=== PATIENT | female | born 1990 | race Caucasian/White ===

== ENCOUNTER 2020-01-27 07:50 | Outpatient (REF) | payer OTHER, SELFPAY ==
[2020-01-27 11:07] LABS: MANUAL DIFF FLAG NO
[2020-01-27 11:16] LABS: Basophils Percent Auto 0.2 % (0-2); Eosinophils Absolute Auto 0.1 X10*3/uL (0.0-0.4); Eosinophils Percent Auto 1.8 % (0-4); Hematocrit 41.4 % (37-47); Hemoglobin 13.6 g/dl (12.0-16.0); Imm Gran Abs Auto 0.01 X10*3/uL (0.00-0.03); Imm Gran Pct Auto 0.2 % (0.0-0.4); Lymphocytes Absolute Auto 2.1 X10*3/uL (1.2-4.9); Lymphocytes Percent Auto 40.4 % (20-40); Mean Corpuscular HGB Conc 32.9 g/dl (31.0-35.0); Mean Corpuscular Hemoglobin 29.8 pg (27.0-33.0); Mean Corpuscular Volume 90.6 fL (80-98); Monocytes Absolute Auto 0.5 X10*3/uL (0.1-1.2); Monocytes Percent Auto 8.9 % (2-11); Neutrophils Absolute Auto 2.5 X10*3/uL (2.0-8.3); Neutrophils Percent Auto 48.5 % (45-73); Platelet Count 302 X10*3/uL (160-400); Red Blood Count 4.57 X10*6/uL (4.20-5.50); Red Cell Distribution Width 14.7 % (11.0-16.0); White Blood Count 5.1 X10*3/uL (4.8-10.8)
[2020-01-27 11:40] LABS: Estimated Average Glucose 111 mg/dL; Hemoglobin A1c % 5.5 %
[2020-01-27 11:58] LABS: Anion Gap 12 (12-20); Blood Urea Nitrogen 11 mg/dL (9-16); Calcium 8.6 mg/dL (8.4-10.2); Carbon Dioxide 25 mmol/L (22-29); Chloride 106 mmol/L (96-108); Cholesterol 201 mg/dL; Estimated Glomerular Filt Rate > 60; Glucose Fasting 87 mg/dL (60-99); HDL Cholesterol 50 mg/dL; LDL Cholesterol Calculated 133 mg/dl; Potassium 4.3 mmol/l (3.3-5.1); Sodium 139 mmol/L (135-145); Triglycerides 93 mg/dL
[2020-01-27 11:59] LABS: TSH reflex Free T4 0.56 mIU/mL (0.32-4.0)
[2020-01-27 12:03] LABS: Erythrocyte Sedimentation Rate 2 MM/HR (0-20)
[2020-01-27 12:04] LABS: Vitamin B12 331 pg/mL (200-900)
[2020-01-28 12:32] LABS: Anti DNA DS Antibody <1 IU/mL
[2020-01-28 14:01] LABS: CRP High Sensitivity 3.7 mg/L
[2020-02-01 14:42] LABS: Vitamin D 25-OH, D2 <4 ng/mL; Vitamin D 25-OH, D3 27 ng/mL; Vitamin D 25-OH, Total 27 ng/mL (30-100)
== END 2020-01-27 07:51 | disposition home or self-care (01) ==
LOC: HO.HMGCLDS 07:50
PROVIDERS: PCP Internal Medicine; Visit Provider Internal Medicine
DX: S46.811A Strain of other muscles, fascia and tendons at shoulder and upper arm level, right arm, initial encounter (principal); G47.9 Sleep disorder, unspecified; F33.2 Major depressive disorder, recurrent severe without psychotic features; F41.1 Generalized anxiety disorder
CPT/HCPCS: 36415; 80048; 80061; 82306; 82607; 83036; 84443; 85025; 85652; 86141; 86225

== ENCOUNTER → 2020-01-28 08:01 | Outpatient (BNVA) | payer OTHER, SELFPAY | PROVIDERS: Visit Provider Psychiatry & Neurology Neurology | DX: G47.33 Obstructive sleep apnea (adult) (pediatric) (principal); Z99.89 Dependence on other enabling machines and devices | CPT/HCPCS: 99214 ==

== ENCOUNTER → 2020-03-03 08:04 | Outpatient (BNVA) | payer OTHER, SELFPAY | PROVIDERS: Visit Provider Psychiatry & Neurology Neurology | DX: Z76.89 Persons encountering health services in other specified circumstances (principal) ==

== ENCOUNTER → 2020-04-28 08:24 | Outpatient (BNVA) | payer OTHER, SELFPAY | PROVIDERS: PCP Internal Medicine; Visit Provider Psychiatry & Neurology Neurology ==

== ENCOUNTER 2020-06-12 11:01 | Outpatient (REF) | payer OTHER, SELFPAY ==
[2020-06-12 11:53] LABS: MANUAL DIFF FLAG NO
[2020-06-12 11:59] LABS: Basophils Percent Auto 0.2 % (0-2); Eosinophils Absolute Auto 0.1 X10*3/uL (0.0-0.4); Eosinophils Percent Auto 1.1 % (0-4); Hematocrit 44.2 % (37-47); Hemoglobin 14.5 g/dl (12.0-16.0); Imm Gran Abs Auto 0.01 X10*3/uL (0.00-0.03); Imm Gran Pct Auto 0.2 % (0.0-0.4); Lymphocytes Absolute Auto 1.7 X10*3/uL (1.2-4.9); Lymphocytes Percent Auto 36.2 % (20-40); Mean Corpuscular HGB Conc 32.8 g/dl (31.0-35.0); Mean Corpuscular Hemoglobin 30.4 pg (27.0-33.0); Mean Corpuscular Volume 92.7 fL (80-98); Mean Platelet Volume 8.5 fL (9.4-12.3); Monocytes Absolute Auto 0.4 X10*3/uL (0.1-1.2); Monocytes Percent Auto 8.1 % (2-11); Neutrophils Absolute Auto 2.6 X10*3/uL (2.0-8.3); Neutrophils Percent Auto 54.2 % (45-73); Platelet Count 343 X10*3/uL (160-400); Red Blood Count 4.77 X10*6/uL (4.20-5.50); Red Cell Distribution Width 12.9 % (11.0-16.0); White Blood Count 4.7 X10*3/uL (4.8-10.8)
[2020-06-12 12:14] LABS: Alanine Aminotransferase 14 U/L (0-31); Albumin Level 4.6 g/dL (3.5-5.0); Alkaline Phosphatase 61 U/L (39-117); Anion Gap 13 (12-20); Aspartate Amino Transferase 15 U/L (5-31); Bilirubin Total 0.4 mg/dL (0.0-1.0); Blood Urea Nitrogen 14 mg/dL (9-16); C Reactive Protein 0.42 mg/dL (< or = 0.50); Calcium 9.3 mg/dL (8.4-10.2); Carbon Dioxide 27 mmol/L (22-29); Chloride 107 mmol/L (96-108); Estimated Glomerular Filt Rate > 60; Glucose Random 92 mg/dL (60-115); Potassium 4.6 mmol/L (3.3-5.1); Rheumatoid Factor < 15.0 IU/mL (<15.0); Sodium 142 mmol/L (135-145); Total Protein 7.5 g/dL (6.5-8.0)
[2020-06-12 12:34] LABS: Thyroid Stimulating Hormone 0.24 uIU/mL (0.32-4.0)
[2020-06-12 12:43] LABS: Erythrocyte Sedimentation Rate 5 MM/HR (0-20)
[2020-06-14 15:42] LABS: Anti Nuclear Antibody Screen NEGATIVE (NEGATIVE)
[2020-06-14 22:21] LABS: Cyclic Citrullinated Peptide <16 UNITS
[2020-06-16 06:17] LABS: Lyme Abs Screen <0.90 index
[2020-06-16 13:51] LABS: Antibody to SS-A Antigen <1.0 NEG AI (<1.0 NEG); Antibody to SS-B Antigen <1.0 NEG AI (<1.0 NEG)
[2020-06-17 13:22] LABS: Vitamin D 25-OH, D2 <4 ng/mL; Vitamin D 25-OH, D3 29 ng/mL; Vitamin D 25-OH, Total 29 ng/mL (30-100)
== END 2020-06-12 11:02 | disposition home or self-care (01) ==
LOC: HO.LAB 11:01
PROVIDERS: PCP Internal Medicine; Visit Provider Student in an Organized Health Care Education/Training Program
DX: M25.50 Pain in unspecified joint (principal); Z79.899 Other long term (current) drug therapy
CPT/HCPCS: 36415; 80053; 82306; 84443; 85025; 85652; 86038; 86039; 86140; 86200; 86235; 86431; 86618; 99202

== ENCOUNTER → 2020-06-16 08:24 | Outpatient (BNVA) | payer OTHER, SELFPAY | PROVIDERS: PCP Internal Medicine; Visit Provider Psychiatry & Neurology Neurology ==

== ENCOUNTER → 2020-07-02 12:33 | Outpatient (BNVA) | payer OTHER, SELFPAY | PROVIDERS: Visit Provider Student in an Organized Health Care Education/Training Program | DX: M25.50 Pain in unspecified joint (principal); M79.7 Fibromyalgia | CPT/HCPCS: 99212 ==

== ENCOUNTER 2020-07-03 09:20 | Outpatient (REF) | payer OTHER, SELFPAY ==
[2020-07-03 12:11] LABS: TSH reflex Free T4 0.29 uIU/mL (0.32-4.0)
[2020-07-03 13:28] LABS: Free T4 (Free Thyroxine) 0.92 ng/dL (0.71-1.85)
== END 2020-07-03 09:21 | disposition home or self-care (01) ==
LOC: HO.HMGCLDS 09:20
PROVIDERS: PCP Internal Medicine; Visit Provider Internal Medicine
DX: R79.89 Other specified abnormal findings of blood chemistry (principal)
CPT/HCPCS: 36415; 84439; 84443

== ENCOUNTER 2020-08-13 15:25 | Outpatient (REF) | payer OTHER, SELFPAY ==
--- NOTE | ~2020-08-13 | US_ITS ---
EXAMINATION: US THYROID CLINICAL INFORMATION: Unspecified abnormal findings of blood chemistry. COMPARISON: None TECHNIQUE: Linear transducer grayscale and color Doppler examination with attention to the region of the thyroid. FINDINGS: SIZE: Measurements of the thyroid lobes and nodules are given in sagittal, anteroposterior and transverse dimensions respectively. Right Thyroid Lobe: 6.1 x 1.8 x 1.7 cm, volume 9.8 mL. Parenchyma: The gland echotexture is homogeneous. Thyroid vascularity is normal. Left Thyroid Lobe: 5.9 x 1.3 x 1.8 cm, volume 7.2 mL. Parenchyma: The gland echotexture is homogeneous. Thyroid vascularity is normal. Isthmus: 0.4 cm in maximum AP dimension. Estimated total number of nodules greater than or equal to 1 cm: 0. Fagot Heater nodules are described as follows: 1. Location: Right inferior. Size: 0.6 5.2 x 0.5 cm, volume 0.06 mL. Nodule characteristics: Composition: Spongiform (0). Echogenicity: Anechoic (0). Shape: Not taller than wide (0). Margins: Smooth (0). Echogenic Foci: None (0). ACR TI-RADS total points: 0 ACR TI-RADS category: 1 2. Location: Right inferior. Size: 0.9 x 0.4 x 0.9 cm, volume 0.17 mL. Nodule characteristics: Composition: Spongiform (0). Echogenicity: Anechoic (0). Shape: Not taller than wide (0). Margins: Smooth (0). Echogenic Foci: None (0). ACR TI-RADS total points: 0 ACR TI-RADS category: 1 3. Location: Left inferior. Size: 0.8 x 0.4 x 0.7 cm, volume 0.12 mL. Nodule characteristics: Composition: Cystic(0). ACR TI-RADS total points: 0 ACR TI-RADS category: 1 NODES: No lymphadenopathy is seen in the tissue surrounding the thyroid gland. US/US thyroid IMPRESSION: Slightly enlarged right lobe. Small bilateral thyroid nodules. Based on ACR TI-RADS criteria, no ultrasound follow-up indicated. ACR TI-RADS RECOMMENDATION REFERENCE: Ultrasound-guided fine-needle aspiration, followup ultrasound, no further follow up. * TR1 (0 point) and TR 2 (2 points): No FNA or follow up * TR3 (3 points): FNA if more than or equal to 2.5 cm in maximum dimension, followup ultrasound in 1, 3 and 5 years if 1.5 to 2.4 cm in maximum dimension. * TR4 (4-6 points): FNA if more than or equal to 1.5 cm in maximum dimension, followup ultrasound in 1, 2, 3 and 5 years if 1 to 1.4 cm in maximum dimension. * TR5 (more than or equal to 7 points): FNA if more than or equal to 1 cm in maximum dimension, followup ultrasound every year for 5 years if 0.5 to 0.9 cm in maximum dimension. * TR3, TR4 or TR5 nodules that are below the size threshold for follow up receive no follow up.
== END 2020-08-13 15:26 | disposition home or self-care (01) ==
LOC: HO.HMGCX 15:25
PROVIDERS: Visit Provider Internal Medicine
DX: R94.6 Abnormal results of thyroid function studies (principal)
CPT/HCPCS: 76536

== ENCOUNTER → 2020-08-25 08:31 | Outpatient (BNVA) | payer OTHER, SELFPAY | PROVIDERS: PCP Internal Medicine; Visit Provider Psychiatry & Neurology Neurology | DX: G25.81 Restless legs syndrome (principal); G47.33 Obstructive sleep apnea (adult) (pediatric) | CPT/HCPCS: 99212 ==

== ENCOUNTER → 2020-09-15 09:50 | Outpatient (BNVA) | payer OTHER, SELFPAY | PROVIDERS: PCP Internal Medicine; Visit Provider Internal Medicine Endocrinology, Diabetes & Metabolism | DX: E66.9 Obesity, unspecified (principal); E04.2 Nontoxic multinodular goiter; L65.9 Nonscarring hair loss, unspecified; R79.89 Other specified abnormal findings of blood chemistry | CPT/HCPCS: 99202 ==

== ENCOUNTER 2020-09-17 08:21 | Outpatient (REF) | payer OTHER, SELFPAY ==
[2020-09-17 10:00] LABS: MANUAL DIFF FLAG NO
[2020-09-17 10:06] LABS: Basophils Percent Auto 0.2 % (0-2); Eosinophils Absolute Auto 0.1 X10*3/uL (0.0-0.4); Eosinophils Percent Auto 1.2 % (0-4); Hemoglobin 14.6 g/dl (12.0-16.0); Imm Gran Abs Auto 0.01 X10*3/uL (0.00-0.03); Imm Gran Pct Auto 0.2 % (0.0-0.4); Lymphocytes Absolute Auto 1.7 X10*3/uL (1.2-4.9); Mean Corpuscular HGB Conc 33.2 g/dl (31.0-35.0); Mean Corpuscular Hemoglobin 30.7 pg (27.0-33.0); Mean Corpuscular Volume 92.4 fL (80-98); Mean Platelet Volume 9.1 fL (9.4-12.3); Monocytes Absolute Auto 0.4 X10*3/uL (0.1-1.2); Monocytes Percent Auto 8.4 % (2-11); Neutrophils Absolute Auto 2.1 X10*3/uL (2.0-8.3); Platelet Count 298 X10*3/uL (160-400); Red Blood Count 4.76 X10*6/uL (4.20-5.50); Red Cell Distribution Width 13.2 % (11.0-16.0); White Blood Count 4.2 X10*3/uL (4.8-10.8)
[2020-09-17 10:29] LABS: Alanine Aminotransferase 17 U/L (0-31); Albumin Level 4.5 g/dL (3.5-5.0); Alkaline Phosphatase 64 U/L (39-117); Anion Gap 9 (12-20); Aspartate Amino Transferase 16 U/L (5-31); Bilirubin Total 0.5 mg/dL (0.0-1.0); Blood Urea Nitrogen 15 mg/dL (9-16); Carbon Dioxide 26 mmol/L (22-29); Chloride 109 mmol/L (96-108); Estimated Glomerular Filt Rate > 60; Glucose Fasting 88 mg/dL (60-99); Potassium 4.3 mmol/L (3.3-5.1); Sodium 140 mmol/L (135-145)
[2020-09-17 10:48] LABS: Free T4 (Free Thyroxine) 0.89 ng/dL (0.71-1.85); Thyroid Stimulating Hormone 0.28 uIU/mL (0.32-4.0)
[2020-09-18 18:44] LABS: DHEA Sulfate 50 mcg/dL (18-391); Sex Hormone Binding Globulin 28 nmol/L (17-124)
[2020-09-18 21:05] LABS: Lutenizing Hormone 2.1 mIU/mL; Triiodothyronine T3 Total 70 ng/dL (76-181)
[2020-09-18 22:18] LABS: Thyroglobulin Antibodies <1 IU/mL (< or = 1); Thyroid Peroxidase Antibodies <1 IU/mL (<9)
[2020-09-20 13:51] LABS: IGF-1 (Somatomedin C) 127 ng/mL (63-373); IGF-1 Z Score (Female) -0.5 SD (-2.0 - +2.0)
[2020-09-21 17:57] LABS: Testosterone, Free 2.3 pg/mL (0.1-6.4); Testosterone, Total 16 ng/dL (2-45)
[2020-09-21 19:12] LABS: Adrenocorticotropic Hormone 14 pg/mL (6-50)
[2020-09-22 09:17] LABS: Thyrotropin Receptor Antibody <1.00 IU/L (<=2.00)
[2020-09-23 15:12] LABS: Thyroid Stimulating Immunoglob <89 % baseline (<140)
[2020-09-23 21:16] LABS: Androstenedione 59 ng/dL
[2020-09-24 01:46] LABS: Estradiol Free 1.55 pg/mL; Estradiol, Ultrasensitive 69 pg/mL
[2020-09-26 23:01] LABS: 11-Deoxycortisol, LC/MS <20 ng/dL
== END 2020-09-17 08:22 | disposition home or self-care (01) ==
LOC: HO.LAB 08:21
PROVIDERS: PCP Internal Medicine; Visit Provider Internal Medicine Endocrinology, Diabetes & Metabolism
DX: E66.9 Obesity, unspecified (principal); R79.89 Other specified abnormal findings of blood chemistry
CPT/HCPCS: 36415; 80053; 82024; 82157; 82533; 82627; 82634; 82670; 82681; 83001; 83002; 83498; 83520; 84270; 84305; 84402; 84403; 84439; 84443; 84445; 84480; 85025; 86376; 86800

== ENCOUNTER 2020-10-13 08:07 | Outpatient (REF) | payer OTHER, SELFPAY ==
[2020-10-13 09:40] LABS: Free T4 (Free Thyroxine) 1.01 ng/dL (0.71-1.85); Thyroid Stimulating Hormone 0.43 uIU/mL (0.32-4.0)
[2020-10-14 23:06] LABS: Adrenocorticotropic Hormone 15 pg/mL (6-50)
[2020-10-15 01:33] LABS: Triiodothyronine T3 Total 90 ng/dL (76-181)
[2020-10-19 04:42] LABS: Thyroxine Binding Globulin 20.4 mcg/mL (13.5-30.9)
[2020-10-20 21:42] LABS: Dexamethasone <20 ng/dL
== END 2020-10-13 08:08 | disposition home or self-care (01) ==
LOC: HO.LAB 08:07
PROVIDERS: PCP Internal Medicine; Visit Provider Internal Medicine Endocrinology, Diabetes & Metabolism
DX: E04.2 Nontoxic multinodular goiter (principal); R79.89 Other specified abnormal findings of blood chemistry; E66.9 Obesity, unspecified; Z68.37 Body mass index [BMI] 37.0-37.9, adult; L65.9 Nonscarring hair loss, unspecified; Z71.3 Dietary counseling and surveillance
CPT/HCPCS: 36415; 80299; 82024; 82533; 84439; 84442; 84443; 84480; 99212

== ENCOUNTER 2020-10-18 23:00 | Outpatient (REF) | payer OTHER, SELFPAY ==
[2020-10-23 17:11] LABS: Saliva Cortisol 0.13 mcg/dL
== END 2020-10-18 23:01 | disposition home or self-care (01) ==
LOC: HO.LNP 23:00
PROVIDERS: Visit Provider Internal Medicine Endocrinology, Diabetes & Metabolism
DX: E66.9 Obesity, unspecified (principal); E04.2 Nontoxic multinodular goiter; R79.89 Other specified abnormal findings of blood chemistry
CPT/HCPCS: 82530

== ENCOUNTER 2020-10-19 07:28 | Outpatient (REF) | payer OTHER, SELFPAY ==
[2020-10-28 13:46] LABS: Dexamethasone 268 ng/dL
== END 2020-10-19 07:29 | disposition home or self-care (01) ==
LOC: HO.LAB 07:28
PROVIDERS: PCP Internal Medicine; Visit Provider Internal Medicine Endocrinology, Diabetes & Metabolism
DX: E66.9 Obesity, unspecified (principal)
CPT/HCPCS: 36415; 80299; 82533

== ENCOUNTER → 2020-12-16 10:22 | Outpatient (REF) | payer OTHER, SELFPAY ==
--- NOTE | ~2020-12-16 | NM_ITS ---
EXAMINATION: NM THYROID UPTAKE AND SCAN CLINICAL INFORMATION: Nontoxic multinodular goiter. Low TSH. COMPARISON: None TECHNIQUE: Following the oral administration of 293 microcuries of I-123 sodium iodide, thyroid uptake was performed and expressed as a percentage of the administrated dose. Gamma scintillation camera images of the thyroid in the anterior and right and left anterior oblique views were obtained using a pinhole collimator following the administration of 10 mCi Tc-99m pertechnetate. FINDINGS: The uptake is 9% at 4 hours and 21.4% at 24 hours. On thyroid scan, there are normal symmetrical thyroid lobes with no focal cold defect or focal increased activity. Incidental finding of mild increased activity inferior to left thyroid lobe. NM/NM thyroid w uptake IMPRESSION: Normal symmetrical thyroid lobes on thyroid scan. Normal 4-hour and 24-hour uptake.
== END ==
LOC: HO.NUCMED 10:22
PROVIDERS: PCP Internal Medicine; Visit Provider Internal Medicine Endocrinology, Diabetes & Metabolism
DX: E04.2 Nontoxic multinodular goiter (principal); R79.89 Other specified abnormal findings of blood chemistry
CPT/HCPCS: 78014; A9512; A9516

== ENCOUNTER 2020-12-17 12:40 | Emergency (ER) | payer OTHER, SELFPAY ==
--- NOTE | ~2020-12-17 | CT_ITS ---
EXAMINATION: CT HEAD WITHOUT CONTRAST CLINICAL INFORMATION: Syncope and headache. COMPARISON: None TECHNIQUE: Contiguous axial imaging was performed from the skull base to vertex without intravenous administration of contrast. This CT examination was performed using dose optimization techniques as appropriate, variously including the following: *Automated exposure control *Adjustment of mA and/or kV according to patient size (this includes techniques or standardized protocols for targeted exams where dose is matched to indication/reason for exam; i.e. extremities or head) *Use of iterative reconstruction technique DLP: 728 mGy-cm FINDINGS: There is no evidence of acute intracranial hemorrhage or territorial infarction. No abnormal mass effect or midline shift is seen. Seymour to white matter differentiation is well preserved. No extra-axial fluid collections are identified. The ventricles are normal in size. There is no abnormal attenuation within the brain parenchyma. The osseous structures and soft tissues are normal. The mastoid air cells and visualized portions of the paranasal sinuses are well aerated. CT/CT head/brain wo con IMPRESSION: No acute intracranial process seen.
[2020-12-17 12:42] VITALS: BP 119/92; PULSE 65; RESP 19; TEMP 36.1; O2SAT 99; BMI 35.9
--- NOTE | 2020-12-17 13:12 | ECG_ITS ---
Test Reason : SYNCOPE Blood Pressure : / mmHG Vent. Rate : 065 BPM Atrial Rate : 065 BPM P-R Int : 130 ms QRS Dur : 092 ms QT Int : 442 ms P-R-T Axes : 061 007 032 degrees QTc Int : 459 ms Normal sinus rhythm Normal ECG No previous ECGs available Referred By: Mat Rendon Electronically Signed By:NATO CUEVAS
[2020-12-17 13:22] LABS: MANUAL DIFF FLAG NO
[2020-12-17] MEDS: Metoclopramide HCl 10 MG/2 ML VIAL IVPUSH (13:23)
[2020-12-17] MEDS: diphenhydrAMINE HCL 50 MG/ML VIAL IVPUSH (13:23)
[2020-12-17] MEDS: dexAMETHasone sod phosphate 4 MG/ML VIAL 8 MG IVPUSH (13:23)
[2020-12-17] MEDS: Butalb/Acetamin/Caff 50/325/40 TABLET 2 TAB PO (13:24)
[2020-12-17] MEDS: Famotidine/PF 20 MG/2 ML VIAL IVPUSH (13:24)
[2020-12-17 13:30] LABS: Basophils Percent Auto 0.4 % (0-2); Eosinophils Absolute Auto 0.1 X10*3/uL (0.0-0.4); Eosinophils Percent Auto 1.5 % (0-4); Hematocrit 44.5 % (37-47); Hemoglobin 15.1 g/dl (12.0-16.0); Imm Gran Abs Auto 0.01 X10*3/uL (0.00-0.03); Imm Gran Pct Auto 0.1 % (0.0-0.4); Lymphocytes Absolute Auto 2.7 X10*3/uL (1.2-4.9); Lymphocytes Percent Auto 39.4 % (20-40); Mean Corpuscular HGB Conc 33.9 g/dl (31.0-35.0); Mean Corpuscular Hemoglobin 30.8 pg (27.0-33.0); Mean Corpuscular Volume 90.8 fL (80-98); Mean Platelet Volume 8.9 fL (9.4-12.3); Monocytes Absolute Auto 0.5 X10*3/uL (0.1-1.2); Monocytes Percent Auto 6.7 % (2-11); Neutrophils Absolute Auto 3.6 X10*3/uL (2.0-8.3); Neutrophils Percent Auto 51.9 % (45-73); Platelet Count 300 X10*3/uL (160-400); Red Cell Distribution Width 12.6 % (11.0-16.0); White Blood Count 6.9 X10*3/uL (4.8-10.8)
[2020-12-17 13:47] LABS: Alanine Aminotransferase 17 U/L (0-31); Albumin Level 4.6 g/dL (3.5-5.0); Alkaline Phosphatase 62 U/L (39-117); Anion Gap 12 (12-20); Aspartate Amino Transferase 16 U/L (5-31); Bilirubin Direct 0.2 mg/dL (0.0-0.5); Bilirubin Total 0.7 mg/dL (0.0-1.0); Blood Urea Nitrogen 11 mg/dL (9-16); Calcium 9.3 mg/dL (8.4-10.2); Carbon Dioxide 24 mmol/L (22-29); Chloride 108 mmol/L (96-108); Creatinine Clr Calc Pharmacy 154.3; Estimated Glomerular Filt Rate > 60; Glucose Random 96 mg/dL (60-115); Potassium 3.9 mmol/L (3.3-5.1); Sodium 140 mmol/L (135-145); Total Protein 7.2 g/dL (6.5-8.0)
[2020-12-17 13:53] LABS: HCG Quantitative < 2 mIU/mL; Troponin-I High Sensitivity < 3.5 ng/L (<3.5-17.0)
--- NOTE | 2020-12-17 13:59 | ED_ITS ---
HPI - General Adult General Chief complaint: General Medical Stated complaint: near syncope Time Seen by Provider: 12/17/20 13:12 Source: patient Mode of arrival: ambulatory Limitations: no limitations History of Present Illness HPI narrative: Patient presents to the ED multiple complaints. Patient after receiving Iodine for nuclear test of thryoid today she fell dizzy/nauseous and almost passed out. Patient states since having nuclear med imaging she has been nauseous and having headache with photophobia. Patient states history of migraine feels like she have another migraines exacerbation due to the medic ations. Patient denies rash, itchy sensation shortness of breath or sensation of throat closing. Mother states father had similar presentation to iodine last last year while receiving a CT scan had to be given Benadryl and other meds. Related Data Home Medications Medication Instructions Recorded Confirmed bupropion HCl 300 mg 24 hr tablet, 300 mg PO DAILY 01/24/20 10/13/20 extended release epinephrine 0.3 mg/0.3 mL 1 IM 01/24/20 10/13/20 injection, auto-injector pregabalin 150 mg capsule 150 mg PO BID 08/25/20 10/13/20 sertraline 100 mg tablet 100 mg PO tab 09/15/20 10/13/20 tizanidine 2 mg tablet 4 mg PO Q12H 09/15/20 10/13/20 buspirone 5 mg tablet 5 mg PO BID 10/13/20 10/13/20 Previous Rx's Medication Instructions Recorded multivitamin 1 tab PO DAILY 30 Days #30 tab 02/19/20 cholecalciferol (vitamin D3) 25 25 mcg PO DAILY 90 Days #90 cap 08/05/20 mcg (1,000 unit) capsule dexamethasone 1 mg tablet 1 mg PO ONCE 1 Days #1 tab 10/13/20 cimuaejgan-owgdivminlzvt-jyfwstea 1 cap PO Q6H PRN #20 cap 12/17/20 50 mg-300 mg-40 mg capsule (Fioricet) naproxen 500 mg tablet 500 mg PO BID PRN #20 tab 12/17/20 Allergies Allergy/AdvReac Type Severity Reaction Status Date / Time shell fish Allergy Unknown anaphylaxis Verified 08/05/20 15:43 Apples Allergy Unknown anaphylaxis Uncoded 08/05/20 15:43 Review of Systems Review of Systems: Yes all other systems are reviewed and are negative Constitutional: Constitutional: Reports as per HPI, Reports no additional constitutional complaints and Reports headache(s) Eyes: Eyes: Reports as per HPI and Reports no additional eye complaints ENT: Reports system reviewed and no additional complaints, except as documented, Reports as per HPI and Reports headache(s) Cardiovascular: Cardiovascular: Reports as per HPI and Reports no additional cardiovascular complaints Respiratory: Respiratory: Reports as per HPI and Reports no additional respiratory complaints Gastrointestinal: Gastrointestinal: Reports as per HPI, Reports no additional gastrointestinal complaints, Reports nausea and Reports vomiting Genitourinary: Genitourinary: Reports no additional female genitourinary complaints and Reports as per HPI Musculoskeletal: Musculoskeletal: Reports no additional musculoskeletal complaints and Reports as per HPI Neurologic: Reports system reviewed and no additional complaints, except as documented, Reports as per HPI and Reports headache(s) Psychiatric: Psychiatric: Reports no additional psychiatric complaints and Reports as per HPI Endocrine: Endocrine: Reports no additional endocrine complaints and Reports as per HPI PMFSH Past Medical History Medical History (Updated 12/17/20 @ 15:42 by BRI Call) Anxiety, generalized Arthrosis Depression, major, severe recurrence Difficulty sleeping Elevated C-reactive protein (CRP) Fibromyalgia Hair loss Multinodular goiter Obesity (BMI 30-39.9) Obstructive sleep apnea on CPAP Shellfish allergy Strain of right trapezius muscle Vitamin D deficiency Surgical History History of bariatric surgery Family History Family History Father Bipolar disorder Hypercholesterolemia HTN (hypertension) Depression Obesity Mother HTN (hypertension) Social History Social History (Updated 09/15/20 @ 10:05 by PAT Garcia) Alcohol intake: unknown Patient Tobacco Use Status: Never used Tobacco Advance Directives: No Physical Exam Vital Signs: Vital Signs: Last Vital Signs Temp 97 F 12/17/20 12:42 Pulse 72 12/17/20 14:46 Resp 16 12/17/20 14:46 BP 137/85 12/17/20 14:46 Pulse Ox 100 12/17/20 14:46 Body Mass Index 35.9 Const: General: cooperative, healthy appearing, comfortable, no acute distress and well developed Orientation/consciousness: patient oriented x3 HENMT: Head: Yes normal to inspection, Yes No palpable skull fracture present, Yes normocephalic and Yes atraumatic Eyes: Other: photophobia General: appearance normal, both eyes and all related structures Neck: Neck: Yes normal visual inspection, Yes full ROM, Yes no lymphadenopathy, Yes no meningeal signs, Yes trachea midline, Yes supple and No tender Chest: Chest palpation & inspection: normal inspection of the chest and normal palpation of entire chest wall Resp: Effort & Inspection: normal respiratory effort and able to speak in complete sentences Auscultation: clear to auscultation bilaterally Cardio: Jugular venous distension: no JVD Heart sounds: S1 normal heart sound present and S2 normal heart sound present GI: Inspection: Yes normal to inspection and No abdominal wall ecchymosis Palpation (GI): Soft to palpation, not firm, nontender, no guarding and not rigid : General: No CVA tenderness and Yes no CVA tenderness Back/Spine/Pelvis: Back: no CVA tenderness, No CVA tenderness and No back tenderness Skin: General skin exam: no rashes or lesions noted and elasticity normal Neuro: Other: Negative facial droop. Negative slurred speech. Kgxydq-va-tkhe rapid hand movement intact. All extremities equal strength 5+. Negative pronator drift. General: patient oriented x3, gait normal, no meningeal signs and CN's II-XI intact bilaterally Cranial nerves: Yes CN's II-XII intact bilaterally Extrem: General: Yes normal to inspection and Yes full ROM Psych: Appearance: grossly normal, well kempt and not disheveled Course Course Course Narrative: Negative for any neuro deficits. Migraine exacerbation) adverse effect from iodine medication for imaging procedure. Treat as migraine exacerbation and adverse medication although there is no shortness of breath or itchiness. Will order Benadryl, Decadron, Pepcid, Reglan, Fioricet and fluids. With EKG troponin head CT. Oral exam normal Reevaluation(s) Reevaluation #1: Patient now looks better and no longer have photophobia, n ausea, and headache resolved after receiving meds. Head CT scan pending. Patient like to be discharged. EKG negative STEMI Time: 14:46 Reevaluation #2: Patient does not want to to wait for head CT scan results were preferred to be called with results. Patient agreeable to sign out against medical advice known risk of in Case head CT shows any life-threatening etiology and she cannot be found. Time: 15:36 Reevaluation #3: Patient was called and informed she had normal head CT scan. Patient informed show follow-up the PCP Time: 16:47 Medical Decision Making MDM Narrative Medical decision making narrative: Migraine exacerbation. Adverse Lab Data Result diagrams: 12/17/20 13:17 12/17/20 13:17 Labs: Lab Results 12/17/20 12/17/20 12/17/20 Range/Units 13:17 13:17 13:17 WBC 6.9 (4.8-10.8) X10*3/uL RBC 4.90 (4.20-5.50) X10*6/uL Hgb 15.1 (12.0-16.0) g/dl Hct 44.5 (37-47) % MCV 90.8 (80-98) fL MCH 30.8 (27.0-33.0) pg MCHC 33.9 (31.0-35.0) g/dl RDW 12.6 (11.0-16.0) % Plt Count 300 (160-400) X10*3/uL MPV 8.9 L (9.4-12.3) fL Immature Gran % (Auto) 0.1 (0.0-0.4) % Neut % (Auto) 51.9 (45-73) % Lymph % (Auto) 39.4 (20-40) % Jefferson % (Auto) 6.7 (2-11) % Eos % (Auto) 1.5 (0-4) % Baso % (Auto) 0.4 (0-2) % Lymph # (Auto) 2.7 (1.2-4.9) X10*3/uL Jefferson # (Auto) 0.5 (0.1-1.2) X10*3/uL Eos # (Auto) 0.1 (0.0-0.4) X10*3/uL Baso # (Auto) 0.0 (0.0-0.2) X10*3/uL Abs Immat Gran (auto) 0.01 (0.00-0.03) X10*3/uL Absolute Neuts (auto) 3.6 (2.0-8.3) X10*3/uL Absolute Nucleated RBC 0.000 (0.0-0.012) X10*3/uL Nucleated RBC % (auto) 0.0 (0.0-0.2) /100WBC PT (9.9-13.0) SEC INR (0.9-1.1) APTT (24.1-38.0) SEC Sodium 140 (135-145) mmol/L Potassium 3.9 (3.3-5.1) mmol/L Chloride 108 (96-108) mmol/L Carbon Dioxide 24 (22-29) mmol/L Anion Gap 12 (12-20) BUN 11 (9-16) mg/dL Creatinine 0.82 (0.5-1.4) mg/dL Estim Creat Clear Calc 154.3 Estimated GFR > 60 Random Glucose 96 (60-115) mg/dL Calcium 9.3 (8.4-10.2) mg/dL Total Bilirubin 0.7 (0.0-1.0) mg/dL Direct Bilirubin 0.2 (0.0-0.5) mg/dL AST 16 (5-31) U/L ALT 17 (0-31) U/L Alkaline Phosphatase 62 (39-117) U/L Troponin I High Sens < 3.5 (<3.5-17.0) ng/L Total Protein 7.2 (6.5-8.0) g/dL Albumin 4.6 (3.5-5.0) g/dL Beta HCG, Quant mIU/mL 12/17/20 12/17/20 Range/Units 13:17 14:43 WBC (4.8-10.8) X10*3/uL RBC (4.20-5.50) X10*6/uL Hgb (12.0-16.0) g/dl Hct (37-47) % MCV (80-98) fL MCH (27.0-33.0) pg MCHC (31.0-35.0) g/dl RDW (11.0-16.0) % Plt Count (160-400) X10*3/uL MPV (9.4-12.3) fL Immature Gran % (Auto) (0.0-0.4) % Neut % (Auto) (45-73) % Lymph % (Auto) (20-40) % Jefferson % (Auto) (2-11) % Eos % (Auto) (0-4) % Baso % (Auto) (0-2) % Lymph # (Auto) (1.2-4.9) X10*3/uL Jefferson # (Auto) (0.1-1.2) X10*3/uL Eos # (Auto) (0.0-0.4) X10*3/uL Baso # (Auto) (0.0-0.2) X10*3/uL Abs Immat Gran (auto) (0.00-0.03) X10*3/uL Absolute Neuts (auto) (2.0-8.3) X10*3/uL Absolute Nucleated RBC (0.0-0.012) X10*3/uL Nucleated RBC % (auto) (0.0-0.2) /100WBC PT 12.3 (9.9-13.0) SEC INR 1.1 (0.9-1.1) APTT 32.4 (24.1-38.0) SEC Sodium (135-145) mmol/L Potassium (3.3-5.1) mmol/L Chloride (96-108) mmol/L Carbon Dioxide (22-29) mmol/L Anion Gap (12-20) BUN (9-16) mg/dL Creatinine (0.5-1.4) mg/dL Estim Creat Clear Calc Estimated GFR Random Glucose (60-115) mg/dL Calcium (8.4-10.2) mg/dL Total Bilirubin (0.0-1.0) mg/dL Direct Bilirubin (0.0-0.5) mg/dL AST (5-31) U/L ALT (0-31) U/L Alkaline Phosphatase (39-117) U/L Troponin I High Sens (<3.5-17.0) ng/L Total Protein (6.5-8.0) g/dL Albumin (3.5-5.0) g/dL Beta HCG, Quant < 2 mIU/mL ECG Data Interpretation: Normal sinus rhythm. Normal EKG. Ventricular rate 65. Pr interval 130. QTC 459. Negative STEMI Discharge Plan Discharge Clinical Impression: Migraine, Adverse reaction to drug Patient Disposition: Left Against Medical Advice Instructions: Migraine Headache (ED), Adverse Drug Reaction (ED) Additional Instructions: Return to ED immediately for worsening headache, swelling of lips, shortness of breath, fever, chills, neck stiffness, slurred speech, facial droop, swelling of tongue, rash, or any other concerning symptoms. Please follow up with PCP Prescriptions: New naproxen 500 mg tablet 500 mg PO BID PRN (Reason: pain) Qty: 20 RF: 0 obwblactoy-ebxrdjejgmgmx-bciw [Fioricet] 50-300-40 mg capsule 1 cap PO Q6H PRN (Reason: pain) Qty: 20 RF: 0 No Action multivitamin Tablet 1 tab PO DAILY 30 Days Qty: 30 RF: 2 bupropion HCl 300 mg tablet extended release 24 hr 300 mg PO DAILY RF: 0 epinephrine 0.3 mg/0.3 mL auto-injector 1 IM RF: 0 sertraline 100 mg tablet 100 mg PO RF: 0 cholecalciferol (vitamin D3) 25 mcg (1,000 unit) capsule 25 mcg PO DAILY 90 Days Qty: 90 RF: 0 pregabalin 150 mg capsule 150 mg PO BID RF: 0 tizanidine 2 mg tablet 4 mg PO Q12H RF: 0 buspirone 5 mg tablet 5 mg PO BID RF: 0 dexamethasone 1 mg tablet 1 mg PO ONCE 1 Days Qty: 1 RF: 0 Stand Alone Forms: Against Medical Advice, Work/School Release Interventions: ED Discharge Assessment Last Done: 12/17/20 15:58 Discharge Date/Time: 12/17/20 15:59 Print Language: Sammarinese
[2020-12-17 14:46] VITALS: BP 137/85; PULSE 72; RESP 16; O2SAT 100
--- NOTE | 2020-12-17 14:51 | PC.NURSE ---
Pt is now sitting up and states is feeling better. Pt no longer has complaints of a headache or nausea and is requesting discharge. Pt still needs a head CT.
[2020-12-17 14:55] LABS: INTERNATIONAL NORM RATIO 1.1 (0.9-1.1); Prothrombin Time 12.3 SEC (9.9-13.0)
[2020-12-17 14:58] LABS: Partial Thromboplastin Time 32.4 SEC (24.1-38.0)
== END 2020-12-17 15:59 | disposition left against medical advice (07) ==
PROVIDERS: Physician Assistant; Emergency Provider Emergency Medicine; PCP Internal Medicine
DX: G43.909 Migraine, unspecified, not intractable, without status migrainosus (principal); R42 Dizziness and giddiness; Z79.899 Other long term (current) drug therapy
CPT/HCPCS: 36415; 70450; 80053; 82248; 84484; 84702; 85025; 85610; 85730; 93005; 96374; 96375; 99284; 99285; J1100; J1200; J2765

== ENCOUNTER → 2020-12-30 12:17 | Outpatient (BNVA) | payer OTHER, SELFPAY | PROVIDERS: PCP Internal Medicine; Visit Provider Internal Medicine ==

== ENCOUNTER 2020-12-31 07:29 | Outpatient (REF) | payer OTHER, SELFPAY ==
[2020-12-31 09:08] LABS: Glucose Fasting 98 mg/dL (60-99)
[2020-12-31 09:13] LABS: Free T4 (Free Thyroxine) 1.16 ng/dL (0.71-1.85); Thyroid Stimulating Hormone 0.72 uIU/mL (0.32-4.0); Vitamin D 25-OH Total 26.4 ng/mL (>30)
[2020-12-31 10:01] LABS: Glucose 1 Hour 76 mg/dL
[2020-12-31 10:46] LABS: Glucose 2 Hour 72 mg/dL
[2021-01-02 05:11] LABS: DHEA Sulfate 68 mcg/dL (18-391)
[2021-01-02 21:02] LABS: Prolactin 18.4 ng/mL; Triiodothyronine T3 Total 119 ng/dL (76-181)
[2021-01-05 21:36] LABS: Testosterone, Total 18 ng/dL (2-45)
[2021-01-07 18:56] LABS: Cortisol, Free 0.49 mcg/dL
== END 2020-12-31 07:30 | disposition home or self-care (01) ==
LOC: HO.LAB 07:29
PROVIDERS: PCP Internal Medicine; Visit Provider Internal Medicine
DX: E28.2 Polycystic ovarian syndrome (principal); E05.90 Thyrotoxicosis, unspecified without thyrotoxic crisis or storm; E04.2 Nontoxic multinodular goiter; E55.9 Vitamin D deficiency, unspecified
CPT/HCPCS: 36415; 82306; 82530; 82627; 84146; 84402; 84403; 84439; 84443; 84480

== ENCOUNTER → 2021-04-26 10:19 | Outpatient (BNVA) | payer OTHER, SELFPAY | PROVIDERS: PCP Internal Medicine; Visit Provider Internal Medicine ==

== ENCOUNTER 2021-05-05 11:13 | Outpatient (REF) | payer OTHER, SELFPAY ==
[2021-05-05 12:32] LABS: Free T4 (Free Thyroxine) 1.05 ng/dL (0.71-1.85); Thyroid Stimulating Hormone 0.24 uIU/mL (0.32-4.0)
[2021-05-07 00:42] LABS: Triiodothyronine T3 Total 103 ng/dL (76-181)
== END 2021-05-05 11:14 | disposition home or self-care (01) ==
LOC: HO.LAB 11:13
PROVIDERS: PCP Internal Medicine; Visit Provider Internal Medicine
DX: E05.90 Thyrotoxicosis, unspecified without thyrotoxic crisis or storm (principal); E04.2 Nontoxic multinodular goiter
CPT/HCPCS: 36415; 84439; 84443; 84480

== ENCOUNTER 2021-05-06 11:42 | Outpatient (REF) | payer OTHER, SELFPAY ==
[2021-05-06 13:23] LABS: Free T4 (Free Thyroxine) 1.03 ng/dL (0.71-1.85); TSH reflex Free T4 0.26 uIU/mL (0.32-4.0); Thyroid Stimulating Hormone 0.27 uIU/mL (0.32-4.0)
[2021-05-07 05:01] LABS: Triiodothyronine T3 Total 88 ng/dL (76-181)
[2021-05-07 09:01] LABS: Thyroglobulin Antibodies <1 IU/mL (< or = 1); Thyroid Peroxidase Antibodies 1 IU/mL (<9)
[2021-05-10 20:41] LABS: Thyrotropin Receptor Antibody <1.00 IU/L (<=2.00)
[2021-05-12 15:42] LABS: Thyroid Stimulating Immunoglob <89 % baseline (<140)
== END 2021-05-06 11:43 | disposition home or self-care (01) ==
LOC: HO.LAB 11:42
PROVIDERS: Internal Medicine; PCP Internal Medicine; Visit Provider Internal Medicine
DX: E05.90 Thyrotoxicosis, unspecified without thyrotoxic crisis or storm (principal); E04.2 Nontoxic multinodular goiter; R79.89 Other specified abnormal findings of blood chemistry
CPT/HCPCS: 36415; 83520; 84439; 84443; 84445; 84480; 86376; 86800

== ENCOUNTER 2021-05-07 11:05 | Outpatient (REF) | payer OTHER, SELFPAY ==
[2021-05-07 14:03] LABS: Cholesterol 195 mg/dL; HDL Cholesterol 50 mg/dL; LDL Cholesterol Calculated 131 mg/dl; Triglycerides 72 mg/dL
== END 2021-05-07 11:06 | disposition home or self-care (01) ==
LOC: HO.HMGCLDS 11:05
PROVIDERS: PCP Internal Medicine; Visit Provider Internal Medicine
DX: E66.09 Other obesity due to excess calories (principal)
CPT/HCPCS: 36415; 80061

== ENCOUNTER 2021-06-07 13:24 | Outpatient (REF) | payer OTHER, SELFPAY ==
[2021-06-07 15:26] LABS: Free T4 (Free Thyroxine) 1.11 ng/dL (0.71-1.85); Thyroid Stimulating Hormone 0.53 uIU/mL (0.32-4.0)
[2021-06-08 17:56] LABS: Triiodothyronine T3 Total 109 ng/dL (76-181)
== END 2021-06-07 13:25 | disposition home or self-care (01) ==
LOC: HO.LAB 13:24
PROVIDERS: PCP Internal Medicine; Visit Provider Internal Medicine
DX: E04.2 Nontoxic multinodular goiter (principal); E05.90 Thyrotoxicosis, unspecified without thyrotoxic crisis or storm; E21.3 Hyperparathyroidism, unspecified; E28.2 Polycystic ovarian syndrome; G47.33 Obstructive sleep apnea (adult) (pediatric); E55.9 Vitamin D deficiency, unspecified; Z79.899 Other long term (current) drug therapy
CPT/HCPCS: 36415; 84439; 84443; 84480; 99212

== ENCOUNTER 2021-06-07 23:00 | Outpatient (REF) | payer OTHER, SELFPAY ==
[2021-06-12 19:41] LABS: Saliva Cortisol 0.03 mcg/dL
== END 2021-06-07 23:01 | disposition home or self-care (01) ==
LOC: HO.LNP 23:00
PROVIDERS: Visit Provider Internal Medicine
DX: E28.2 Polycystic ovarian syndrome (principal); E04.2 Nontoxic multinodular goiter; E05.90 Thyrotoxicosis, unspecified without thyrotoxic crisis or storm
CPT/HCPCS: 82530

== ENCOUNTER 2021-07-13 10:32 | Outpatient (REF) | payer OTHER, SELFPAY ==
[2021-07-13 11:09] LABS: MANUAL DIFF FLAG NO
[2021-07-13 11:58] LABS: Basophils Percent Auto 0.6 % (0-2); Eosinophils Absolute Auto 0.1 X10*3/uL (0.0-0.4); Hematocrit 42.6 % (37.0-47.0); Hemoglobin 14.1 g/dl (12.0-16.0); Imm Gran Abs Auto 0.01 X10*3/uL (0.00-0.03); Imm Gran Pct Auto 0.2 % (0.0-0.4); Lymphocytes Absolute Auto 2.1 X10*3/uL (1.2-4.9); Lymphocytes Percent Auto 43.7 % (20-40); Mean Corpuscular HGB Conc 33.1 g/dl (31.0-35.0); Mean Corpuscular Hemoglobin 30.9 pg (27.0-33.0); Mean Corpuscular Volume 93.4 fL (80.0-98.0); Mean Platelet Volume 8.9 fL (9.4-12.3); Monocytes Absolute Auto 0.4 X10*3/uL (0.1-1.2); Monocytes Percent Auto 8.7 % (2-11); Neutrophils Absolute Auto 2.2 x10*3/uL (2.0-8.3); Neutrophils Percent Auto 45.8 % (45-73); Platelet Count 317 X10*3/uL (160-400); Red Blood Count 4.56 X10*6/uL (4.20-5.50); Red Cell Distribution Width 12.6 % (11.0-16.0); White Blood Count 4.9 X10*3/uL (4.8-10.8)
[2021-07-13 12:23] LABS: Alanine Aminotransferase 17 U/L (0-31); Albumin Level 4.4 g/dL (3.5-5.0); Alkaline Phosphatase 48 U/L (39-117); Anion Gap 11 (12-20); Aspartate Amino Transferase 13 U/L (5-31); Bilirubin Direct 0.4 mg/dL (0.0-0.5); Bilirubin Total 1.1 mg/dL (0.0-1.0); Blood Urea Nitrogen 10 mg/dL (9-16); Calcium 9.6 mg/dL (8.4-10.2); Carbon Dioxide 27 mmol/L (22-29); Chloride 104 mmol/L (96-108); Cholesterol 182 mg/dL; Estimated Glomerular Filt Rate > 60; Glucose Random 72 mg/dL (60-115); HDL Cholesterol 52 mg/dL; LDL Cholesterol Calculated 115 mg/dl; Potassium 4.4 mmol/L (3.3-5.1); Sodium 138 mmol/L (135-145); Triglycerides 76 mg/dL
[2021-07-13 12:31] LABS: HCG Quantitative < 2 mIU/mL
[2021-07-14 04:16] LABS: Hepatitis B Core Antibody Nonreactive (Nonreactive)
[2021-07-14 04:25] LABS: HBsAGNum1 0.14 S/CO (0.00-0.99); HIV AB/AG Nonreactive (Nonreactive); HIV Num 1 0.06 S/CO (0.00-0.99); Hepatitis B Surface Antigen Negative (Negative); ~HepC Num1 0.06 S/CO (0.00-0.79); ~Hepatitis C Antibody Nonreactive (Nonreactive)
[2021-07-14 04:46] LABS: ~Hepatitis B Surface Antibody REACTIVE (Nonreactive)
[2021-07-15 15:07] LABS: TS Negative Control Passed; TS Panel A 0; TS Panel B 0; TS Positive Control Passed; TSpotTB Negative (Negative)
== END 2021-07-13 10:33 | disposition home or self-care (01) ==
LOC: HO.LAB 10:32
PROVIDERS: PCP Internal Medicine; Visit Provider Physician Assistant Medical
DX: Z11.4 Encounter for screening for human immunodeficiency virus [HIV] (principal); L40.0 Psoriasis vulgaris; L01.01 Non-bullous impetigo
CPT/HCPCS: 36415; 80048; 80061; 80076; 84702; 85025; 86481; 86704; 86706; 86803; 87340; 87389

== ENCOUNTER 2021-08-27 10:33 | Outpatient (REF) | payer OTHER, SELFPAY ==
[2021-08-27 12:25] LABS: HBsAGNum1 0.53 S/CO (0.00-0.99); HIV AB/AG Nonreactive (Nonreactive); HIV Num 1 0.07 S/CO (0.00-0.99); Hepatitis B Surface Antigen Negative (Negative); ~HepC Num1 0.09 S/CO (0.00-0.79); ~Hepatitis C Antibody Nonreactive (Nonreactive)
[2021-08-27 12:44] LABS: Syphilis Screen Nonreactive (Nonreactive)
== END 2021-08-27 10:34 | disposition home or self-care (01) ==
LOC: HO.HMGCLDS 10:33
PROVIDERS: Absent Provider Internal Medicine; PCP Internal Medicine; Visit Provider Nurse Practitioner Women's Health
DX: Z11.3 Encounter for screening for infections with a predominantly sexual mode of transmission (principal)
CPT/HCPCS: 36415; 86780; 86803; 87340; 87389

== ENCOUNTER 2021-10-28 07:47 | Outpatient (REF) | payer OTHER, SELFPAY ==
--- NOTE | 2021-10-28 08:24 | PM.OP ---
Brief Operative Note Date of Service: 10/28/21 Pre-op diagnosis: Thyroid Nodule Procedure: EXAMINATION: US THYROID CLINICAL INFORMATION: Multinodular Thyroid COMPARISON: Prior TECHNIQUE: Linear transducer diez-scale and color Doppler examination with attention to the region of the thyroid. FINDINGS: The Patient presented today for an US of the thyroid as she previously had a thyroid uptake and scan which revealed slightly increased uptake inferior to the L lobe of the thyroid. US was performed today which revealed a homogenous thyroid WNL in terms of size. There was a 1.0 cm cyst within the L mid lobe of the thyroid. No abnormal lymph nodes were identified and no ectopic thyroid tissue was noted. We discussed this in detail today. We will continue with routine yearly surveillance US. All of her questions were answered. Surgeon: Madalyn Alvarez, DO Was an Business Technology Teacher used for this Procedure?: No Estimated blood loss (mL): 0
== END 2021-10-28 07:48 | disposition home or self-care (01) ==
LOC: HO.US 07:47
PROVIDERS: Visit Provider Internal Medicine
DX: E04.2 Nontoxic multinodular goiter (principal)
CPT/HCPCS: 76536

== ENCOUNTER 2021-11-03 08:49 | Outpatient (REF) | payer OTHER, SELFPAY ==
[2021-11-03 10:15] LABS: Free T4 (Free Thyroxine) 0.97 ng/dL (0.71-1.85); Thyroid Stimulating Hormone 0.77 uIU/mL (0.32-4.0)
[2021-11-04 18:17] LABS: Triiodothyronine T3 Total 88 ng/dL (76-181)
== END 2021-11-03 08:50 | disposition home or self-care (01) ==
LOC: HO.LAB 08:49
PROVIDERS: PCP Internal Medicine; Visit Provider Internal Medicine
DX: E05.90 Thyrotoxicosis, unspecified without thyrotoxic crisis or storm (principal)
CPT/HCPCS: 36415; 84439; 84443; 84480

== ENCOUNTER 2021-11-04 08:14 | Outpatient (REF) | payer OTHER, SELFPAY ==
[2021-11-04 09:35] LABS: Anion Gap 13 (12-20); Blood Urea Nitrogen 10 mg/dL (9-16); Carbon Dioxide 25 mmol/L (22-29); Chloride 106 mmol/L (96-108); Estimated Glomerular Filt Rate > 60; Glucose Fasting 89 mg/dL (60-99); Potassium 4.3 mmol/L (3.3-5.1); Sodium 140 mmol/L (135-145)
[2021-11-04 09:53] LABS: Erythrocyte Sedimentation Rate 4 MM/HR (0-20)
[2021-11-05 10:06] LABS: Lyme Abs Screen <0.90 index
[2021-11-08 16:52] LABS: Anti Nuclear Antibody Screen NEGATIVE (NEGATIVE)
== END 2021-11-04 08:15 | disposition home or self-care (01) ==
LOC: HO.LAB 08:14
PROVIDERS: PCP Internal Medicine; Visit Provider Psychiatry & Neurology Neurology
DX: G43.009 Migraine without aura, not intractable, without status migrainosus (principal)
CPT/HCPCS: 36415; 80048; 85652; 86038; 86039; 86617; 86618

== ENCOUNTER → 2022-01-26 13:20 | Outpatient (BNVA) | payer OTHER, SELFPAY | PROVIDERS: PCP Internal Medicine; Visit Provider Dietitian, Registered | DX: E66.9 Obesity, unspecified (principal); E28.2 Polycystic ovarian syndrome; Z71.3 Dietary counseling and surveillance | CPT/HCPCS: 97802 ==

== ENCOUNTER 2022-03-08 12:25 | Outpatient (REF) | payer OTHER, SELFPAY ==
--- NOTE | ~2022-03-08 | XR_ITS ---
EXAMINATION: XR FOOT, BILATERAL CLINICAL INFORMATION: Pain. COMPARISON: None TECHNIQUE: 3 views of foot. FINDINGS: Left Foot: There is no visible acute fracture, dislocation or subluxation seen. Minimal hallux valgus deformity 1st MTP joint is noted No bony erosive changes. The soft tissues are normal. The ankle mortise and subtalar joint is normal. There is a small calcaneal heel enthesophyte. Right Foot: There is mild hallux valgus deformity 1st MTP joint. No acute fracture, dislocation or bony erosive changes involving the joint space. No osteophytes. No soft tissue swelling. XR/XR foot RT min 3V IMPRESSION: 1. Mild hallux valgus deformity 1st MTP joint both feet. No visible acute fracture, dislocation or subluxation seen. 2. Small calcaneal heel enthesophyte left foot.
--- NOTE | ~2022-03-08 | XR_ITS ---
EXAMINATION: XR FOOT, BILATERAL CLINICAL INFORMATION: Pain. COMPARISON: None TECHNIQUE: 3 views of foot. FINDINGS: Left Foot: There is no visible acute fracture, dislocation or subluxation seen. Minimal hallux valgus deformity 1st MTP joint is noted No bony erosive changes. The soft tissues are normal. The ankle mortise and subtalar joint is normal. There is a small calcaneal heel enthesophyte. Right Foot: There is mild hallux valgus deformity 1st MTP joint. No acute fracture, dislocation or bony erosive changes involving the joint space. No osteophytes. No soft tissue swelling. XR/XR foot LT min 3V IMPRESSION: 1. Mild hallux valgus deformity 1st MTP joint both feet. No visible acute fracture, dislocation or subluxation seen. 2. Small calcaneal heel enthesophyte left foot.
== END 2022-03-08 12:26 | disposition home or self-care (01) ==
LOC: HO.HMGCX 12:25
PROVIDERS: PCP Internal Medicine; Visit Provider Internal Medicine
DX: M79.671 Pain in right foot (principal); M79.672 Pain in left foot
CPT/HCPCS: 73630

== ENCOUNTER 2022-05-10 08:16 | Outpatient (REF) | payer OTHER, SELFPAY ==
[2022-05-10 12:01] LABS: Alanine Aminotransferase 22 U/L (0-31); Albumin Level 4.1 g/dL (3.5-5.0); Alkaline Phosphatase 46 U/L (39-117); Anion Gap 15 (12-20); Aspartate Amino Transferase 18 U/L (5-31); Bilirubin Total 0.7 mg/dL (0.0-1.0); Blood Urea Nitrogen 15 mg/dL (9-16); Calcium 8.9 mg/dL (8.4-10.2); Carbon Dioxide 20 mmol/L (22-29); Chloride 109 mmol/L (96-108); Estimated Glomerular Filt Rate > 60; Glucose Random 92 mg/dL (60-115); Potassium 3.9 mmol/L (3.3-5.1); Sodium 140 mmol/L (135-145); Total Protein 6.6 g/dL (6.5-8.0)
[2022-05-10 12:19] LABS: Free T4 (Free Thyroxine) 0.82 ng/dL (0.71-1.85); Thyroid Stimulating Hormone 0.59 uIU/mL (0.32-4.0); Vitamin D 25-OH Total 24.7 ng/mL (>30)
[2022-05-13 05:54] LABS: Adrenocorticotropic Hormone 19 pg/mL (6-50)
[2022-05-15 18:39] LABS: Androstenedione 49 ng/dL
[2022-05-16 15:42] LABS: DHEA Sulfate 44 mcg/dL (19-237); Triiodothyronine T3 Total 97 ng/dL (76-181)
[2022-05-17 10:23] LABS: Testosterone, Free 1.6 pg/mL (0.1-6.4); Testosterone, Total 16 ng/dL (2-45)
[2022-05-27 22:49] LABS: Estradiol Free 0.72 pg/mL; Estradiol, Ultrasensitive 36 pg/mL; Follicle Stimulating Hormone 4.1 mIU/mL
== END 2022-05-10 08:17 | disposition home or self-care (01) ==
LOC: HO.HMGCLDS 08:16
PROVIDERS: PCP Internal Medicine; Visit Provider Internal Medicine
DX: E28.2 Polycystic ovarian syndrome (principal); E05.90 Thyrotoxicosis, unspecified without thyrotoxic crisis or storm; E04.2 Nontoxic multinodular goiter; E55.9 Vitamin D deficiency, unspecified
CPT/HCPCS: 36415; 80053; 82024; 82157; 82306; 82533; 82627; 82670; 82681; 83001; 83002; 83498; 84402; 84403; 84439; 84443; 84480

== ENCOUNTER → 2022-05-13 10:52 | Outpatient (BNVA) | payer OTHER, SELFPAY | PROVIDERS: PCP Internal Medicine; Visit Provider Dietitian, Registered | DX: E66.9 Obesity, unspecified (principal); E05.80 Other thyrotoxicosis without thyrotoxic crisis or storm; E28.2 Polycystic ovarian syndrome; Z68.39 Body mass index [BMI] 39.0-39.9, adult; Z98.84 Bariatric surgery status | CPT/HCPCS: 97803 ==

== ENCOUNTER → 2022-05-16 12:22 | Outpatient (BNVA) | payer OTHER, SELFPAY | PROVIDERS: PCP Internal Medicine; Visit Provider Internal Medicine | DX: E05.90 Thyrotoxicosis, unspecified without thyrotoxic crisis or storm (principal); E28.2 Polycystic ovarian syndrome; E66.9 Obesity, unspecified; E55.9 Vitamin D deficiency, unspecified; G47.33 Obstructive sleep apnea (adult) (pediatric); Z68.39 Body mass index [BMI] 39.0-39.9, adult; Z98.84 Bariatric surgery status | CPT/HCPCS: 99212 ==

== ENCOUNTER → 2022-06-02 11:11 | Outpatient (BNVA) | payer OTHER, SELFPAY | PROVIDERS: PCP Internal Medicine; Visit Provider Physician Assistant Surgical | DX: Z13.89 Encounter for screening for other disorder (principal) ==

== ENCOUNTER 2022-06-06 08:10 | Outpatient (REF) | payer OTHER, SELFPAY ==
[2022-06-07 03:33] LABS: Cortisol 30 Minute 25.7 mcg/dL; Cortisol 60 Minute 25.7 mcg/dL; Cortisol Baseline 14.1 mcg/dL
[2022-06-10 05:40] LABS: Adrenocorticotropic Hormone 20 pg/mL (6-50)
== END 2022-06-06 08:11 | disposition home or self-care (01) ==
LOC: HO.MDS 08:10
PROVIDERS: Visit Provider Internal Medicine
DX: E27.1 Primary adrenocortical insufficiency (principal)
CPT/HCPCS: 36415; 82024; 82533; 96374; J0834

== ENCOUNTER → 2022-06-17 11:10 | Outpatient (BNVA) | payer OTHER, SELFPAY | PROVIDERS: PCP Internal Medicine; Visit Provider Physician Assistant Surgical | DX: E66.9 Obesity, unspecified (principal); G47.33 Obstructive sleep apnea (adult) (pediatric); Z68.39 Body mass index [BMI] 39.0-39.9, adult; Z90.3 Acquired absence of stomach [part of]; Z99.89 Dependence on other enabling machines and devices | CPT/HCPCS: 99202 ==

== ENCOUNTER → 2022-08-31 08:28 | Outpatient (BNVA) | payer OTHER, SELFPAY | PROVIDERS: PCP Internal Medicine; Visit Provider Dietitian, Registered | DX: E66.9 Obesity, unspecified (principal); Z68.41 Body mass index [BMI] 40.0-44.9, adult; Z71.3 Dietary counseling and surveillance | CPT/HCPCS: 97803 ==

== ENCOUNTER 2022-10-19 07:58 | Outpatient (AMB) | payer OTHER, SELFPAY ==
--- NOTE | 2022-10-19 07:58 | MHC.OFFVIS ---
Intake Intake Visit Reasons: F/U PCOS Intake Note: pt is here for f/u pcos Allergies apple Allergy (Unknown, Verified 10/19/22 08:32) Anaphylaxis shellfish derived Allergy (Unknown, Verified 10/19/22 08:32) Anaphylaxis dexamethasone Adverse Reaction (Intermediate, Verified 10/19/22 08:32) nausea, dizziness, migraine Medication List - Last Reconciled 10/19/22 by Madalyn Alvarez, acetaminophen ER (Tylenol 8 Hour) 650 mg PO Q12H [B COMPLEX PO] betamethasone, augmented 0.05 % topical calcipotriene 0.005% topical BID cholecalciferol (vitamin D3) 50 mcg PO DAILY 30 days clotrimazole-betamethasone 1-0.05 % 1 appl topical BID PRN 10 days cyclobenzaprine 5 mg PO BEDTIME PRN ketoconazole 2% 1 appl topical 2XW [MULTIVITAMIN PO] mupirocin 2% 1 appl topical BID-TID [OMEGA-3 PO] venlafaxine ER 75 mg PO DAILY venlafaxine ER 150 mg PO DAILY HPI HPI Comments History of Present Illness Details 31 YO Female with a PMHx of VLAD not on CPAP, prior bariatric surgery who is seen in F/U for subclinical hyperthyroidism with a multinodular thyroid and PCOS. 1) PCOS: She was noted by Dr. Abreu to have androgenic pattern alopecia. This prompted a workup for PCOS. Labs were all WNL, including her overnight 1 mg DSST. Midnight salivary cortisol was elevated, but this was completed at the same time as her dexamethasone was dosed. This was repeated and was WNL. We repeated her biochemical evaluation which was all WNL. Menarche was age 11. Menses were always irregular coming sometimes coming every few weeks, sometimes not for months at a time, sometimes heavy for 2 weeks, sometimes minimal for 1-3 days. She uses an IUD for control. She has no menses with the IUD. She has a 3 year old Son. She had difficulty conceiving, but did conceive spontaneously after 2 years. She does have androgenic pattern alopecia. She denies hirsutism. Denies any acne. She weighs 278, and is 6'2. She does have a history of VLAD and does not use her CPAP. 2) Subclinical hyperthyroidism with a multinodular thyroid. She has a history of subclinical hyperthyroidism with TSH slightly below the lower limit of normal. All antibodies were assessed and were WNL. She had thyroid uptake and scan, which revealed a small focus of increased activity inferior to the thyroid gland, but was otherwise WNL. Her thyroid US revealed multiple cystic nodules, but otherwise appeared WNL. Repeat TFTs are WNL after stopping biotin. Thyroid US: 08/13/2020 Right Thyroid Lobe: 6.1 x 1.8 x 1.7 cm, volume 9.8 mL. Parenchyma: The gland echotexture is homogeneous. Thyroid vascularity is normal. Left Thyroid Lobe: 5.9 x 1.3 x 1.8 cm, volume 7.2 mL. Parenchyma: The gland echotexture is homogeneous. Thyroid vascularity is normal. Isthmus: 0.4 cm in maximum AP dimension. Estimated total number of nodules greater than or equal to 1 cm: 0. Diesel Engine Erector nodules are described as follows: 1. Location: Right inferior. ?? ? Size: 0.6 5.2 x 0.5 cm, volume 0.06 mL. ?? ? Nodule characteristics: ?? ? Composition: Spongiform (0). ?? ? Echogenicity: Anechoic (0). ?? ? Shape: Not taller than wide (0). ?? ? Margins: Smooth (0). ?? ? Echogenic Foci: None (0). ?? ? ACR TI-RADS total points: 0 ?? ? ACR TI-RADS category: 1 2. Location: Right inferior. ?? ? Size: 0.9 x 0.4 x 0.9 cm, volume 0.17 mL. ?? ? Nodule characteristics: ?? ? Composition: Spongiform (0). ?? ? Echogenicity: Anechoic (0). ?? ? Shape: Not taller than wide (0). ?? ? Margins: Smooth (0). ?? ? Echogenic Foci: None (0). ?? ? ACR TI-RADS total points: 0 ?? ? ACR TI-RADS category: 1 3. Location: Left inferior. ?? ? Size: 0.8 x 0.4 x 0.7 cm, volume 0.12 mL. ?? ? Nodule characteristics: ?? ? Composition: Cystic(0). ?? ? ACR TI-RADS total points: 0 ?? ? ACR TI-RADS category: 1 NODES: No lymphadenopathy is seen in the tissue surrounding the thyroid gland. Thyroid Uptake and Scan: 12/16/2020 FINDINGS: The uptake is 9% at 4 hours and 21.4% at 24 hours. On thyroid scan, there are normal symmetrical thyroid lobes with no focal cold defect or focal increased activity. Incidental finding of mild increased activity inferior to left thyroid lobe. Labs: Laboratory Tests 06/06/22 08:59 Cortisol Baseline 14.1 Cortisol 30 Minute 25.7 Cortisol 60 Minute 25.7 PFSH Medical History Anxiety and depression Bulging of thoracic intervertebral disc Cervicalgia Elevated C-reactive protein (CRP) Erythema intertrigo Fibromyalgia Fibromyalgia Multinodular goiter Obesity (BMI 30-39.9) Obstructive sleep apnea Pain in both feet PCOS (polycystic ovarian syndrome) Polyarthralgia Psoriasis Restless legs syndrome Shellfish allergy Subclinical hyperthyroidism Vitamin D deficiency Surgical History H/O gastric sleeve Family History Father Bipolar disorder Hypercholesterolemia HTN (hypertension) Depression Obesity Substance use disorder Mental health disorder Congestive heart failure Sleep apnea Atrial fibrillation Mother HTN (hypertension) Anxiety Sister Obesity Depression Anxiety Son Autism Social History Housing: House Alcohol intake: current Alcohol intake frequency: holidays/special occasions only Patient Tobacco Use Status: Never used Tobacco e-Cigarette/Vaping Use: Never Used Substance Use Type: Marijuana service: No Current occupational status: other 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 I suspect this was biotin interference. Will only repeat if symptoms of hyperthyroidism recur. Cosyntropin stim test was also WNL. Her workup has all been WNL, thus there is no indication to continue to F/U with Endocrinology at this time, though she is requesting an obesity visit. All of her questions were answered. She is in agreement with this plan of care. I spent 20 minutes in reviewing the record, seeing the patient and documenting in the medical record, including 5 minuteson the phone with the patient. (2) Multinodular goiter: Code(s): E04.2 - Nontoxic multinodular goiter Plan: Patient with a multinodular thyroid. I repeated her US myself 10/28/2021 and there was no evidence of ectopic thyroid tissue. There was a 1.0 cm cyst within the thyroid but no nodules meeting indication for FNA biopsy. We reviewed that cysts contain a very low risk for haboring a malignancy, and FNA biopsy is not warranted. We will not repeat a surveillance US unless she has a significant change in symptoms like growth of the gland, difficulty swallowing or changes in her voice. She will notify me of any of these changes. (3) Obstructive sleep apnea: Code(s): G47.33 - Obstructive sleep apnea (adult) (pediatric) Plan: I advise that she begin using her CPAP nightly as she likely has pseudocushing's due to untreated VLAD. (4) Vitamin D deficiency: Code(s): E55.9 - Vitamin D deficiency, unspecified Plan: Remains on Vitamin D 2000 IU daily. (5) PCOS (polycystic ovarian syndrome): Code(s): E28.2 - Polycystic ovarian syndrome Plan: Patient with IUD and infrequent menses due to this. Her workup for hyperandrogenism has remained WNL and no evidence of Diabetes. [place]'s was also ruled out. No further workup at this time. (6) Obesity (BMI 30-39.9): Code(s): E66.9 - Obesity, unspecified Plan: Will F/U in the office for an obesity visit. Telehealth Telehealth Location of provider rendering services: practice address Location of patient: address on file Patient Identification confirmed using: Name, : Yes Telehealth method: voice only Patient verbally consented to treatment: Yes Patient verbally consented to billing insurance company: Yes Patient informed of any privacy concerns related to visit: Yes Coding Level of Care Code Tele Est Pt Level 3 (74552) Diagnoses Subclinical hyperthyroidism E05.90 Multinodular goiter E04.2 Obstructive sleep apnea G47.33 Vitamin D deficiency E55.9 PCOS (polycystic ovarian syndrome) E28.2 Obesity (BMI 30-39.9) E66.9
== END 2022-10-19 12:51 | disposition home or self-care (01) ==
LOC: HO.ENCR 07:58
PROVIDERS: PCP Internal Medicine; Visit Provider Internal Medicine
DX: E05.90 Thyrotoxicosis, unspecified without thyrotoxic crisis or storm (principal); E04.2 Nontoxic multinodular goiter; G47.33 Obstructive sleep apnea (adult) (pediatric); E55.9 Vitamin D deficiency, unspecified; E28.2 Polycystic ovarian syndrome; E66.9 Obesity, unspecified
CPT/HCPCS: 99213

== ENCOUNTER 2022-11-30 08:55 | Outpatient (AMB) | payer OTHER, SELFPAY ==
--- NOTE | 2022-11-30 08:59 | MHC.AMNUTRGE ---
Intake VS Expanded 11/30/22 09:02 Height 6 ft 2 in Weight 311 lb 15.265 oz BMI 40.0 Intake Visit Reasons: obesity/CONFIRM Allergies apple Allergy (Unknown, Verified 10/19/22 08:32) Anaphylaxis shellfish derived Allergy (Unknown, Verified 10/19/22 08:32) Anaphylaxis dexamethasone Adverse Reaction (Intermediate, Verified 10/19/22 08:32) nausea, dizziness, migraine HPI Nutrition Presentation Details Pt presents for MNT obesity follow up. Pt reports she continues to have challenges with increased appetite at night and is requesting assistance with medication management for weight loss. Pt has pending appointment with Dr Blanco, presentation specialist in 01/2023, Pt was advised to discuss questions regarding medication management for weight loss at that visit. Pt reports having a variety of foods/meals and alternating with meal replacements Pt reports beverages per day : water, diluted fruit juices with water, sprite on an off: fluids per day 90 oz -100 oz Regularly ? has Breakfast: ? 9-10 : 2 c WIC gluten? cereal chex mix, lactose low fat milk? , banana , or dried fruit and nuts (almonds, ) water or gluten free bread sandw with scrambled eggs or protein shake Regularly ? Lunch:? salad with chicken tenders or turkey slices and crackers or protein shake , ice cream lactose free , Regularly ? has? ? Dinner:5-6:30 pm? rice/pasta with chicken /meat and non starchy? (mixed) ,? snack: crackers, nuts, cheese late at night has increased appetite, chooses crackers , protein shakes or protein bars , reports cutting them in small pieces physical activity: active with son (who has autism spectrum) , has treadmill at home which may use on rainy days, walks the dog 15 min 3 times a day Pt reports tracking calories utilizing [employer] phone charley, reports measuring food portions , calories may range from [id number], Past hx: laparascopic sleeve gastrectomy in 2014 (was 375 lbs prior to surgery, reach 235 to 240 lbs after surgery Most Recent Diabetes Results: No Data to Display [facility] Medical History Anxiety and depression Bulging of thoracic intervertebral disc Cervicalgia Elevated C-reactive protein (CRP) Erythema intertrigo Fibromyalgia Fibromyalgia Multinodular goiter Obesity (BMI 30-39.9) Obstructive sleep apnea Pain in both feet PCOS (polycystic ovarian syndrome) Polyarthralgia Psoriasis Restless legs syndrome Shellfish allergy Subclinical hyperthyroidism Vitamin D deficiency Surgical History H/O gastric sleeve Family History Father Bipolar disorder Hypercholesterolemia HTN (hypertension) Depression Obesity Substance use disorder Mental health disorder Congestive heart failure Sleep apnea Atrial fibrillation Mother HTN (hypertension) Anxiety Sister Obesity Depression Anxiety Son Autism Social History Housing: House Alcohol intake: current Alcohol intake frequency: holidays/special occasions only Patient Tobacco Use Status: Never used Tobacco e-Cigarette/Vaping Use: Never Used Substance Use Type: Marijuana service: No Current occupational status: other 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 Cognitive needs: No Hearing needs: No Vision needs: Yes Assessment & Plan Assessment & Plan (1) Obesity (BMI 30-39.9): Code(s): E66.9 - Obesity, unspecified Plan Est kcal needs as per msj : 2632 - 500 = 2132 est prot needs asp er 1g /kg bw: 134 g/d est fluid needs asper 25 ml/kg bw: 3350 rec Na intake < 2000 mg d/ +Pt reports having lactose intolerance and has shellfish allergy Topics reviewed and reinforced : Foods that may increase inflammation : ETOH/Sugars/Salt Food skyler can reduce inflammation : high fiber, antioxidants, water Strategies to reduce calories: lower calorie options, physical activity, stretches Mindful eating Patient Instructions: Continue keeping track of your calories and measuring food portions, working on aiming at 2100. Reduce calories from sugars and empty calorie foods (pastries/alcohol, high fat and fried foods. Include probiotic and prebiotic sources of foods in our diet Continue physical activity , goal 150 minutes per week as tolerated Discuss medication management for weight loss with your presentation specialist for further assessment. Coding Level of Care Code Nutr Indiv Subseq (62813) Diagnoses Obesity (BMI 30-39.9) E66.9 Time Spent (min) 20
[2022-11-30 09:02] VITALS: BMI 40.0
== END 2022-11-30 09:22 | disposition home or self-care (01) ==
PROVIDERS: PCP Internal Medicine; Visit Provider Dietitian, Registered
DX: E66.9 Obesity, unspecified (principal)

== ENCOUNTER → 2022-11-30 08:55 | Outpatient (BNVA) | payer OTHER, SELFPAY | PROVIDERS: Visit Provider Dietitian, Registered | DX: E66.9 Obesity, unspecified (principal); Z68.41 Body mass index [BMI] 40.0-44.9, adult; Z98.84 Bariatric surgery status; Z71.3 Dietary counseling and surveillance | CPT/HCPCS: 97803 ==

== ENCOUNTER 2023-01-10 09:23 | Outpatient (AMB) | payer OTHER, SELFPAY ==
[2023-01-10 09:24] VITALS: BP 110/80; PULSE 75; BMI 40.6
--- NOTE | 2023-01-10 09:24 | MHC.OFFVIS ---
Intake Vital Signs 01/10/23 09:24 Height 6 ft 2 in Weight 315 lb 14.758 oz BMI 40.6 BP 110/80 Blood Pressure Location Lt brachial Position Sitting Pulse 75 Pulse Source Pulse Oximeter Intake Visit Reasons: F/U PCOS, appt confirmed Intake Note: New patient to Dr. Blanco present today for PCOS follow up visit. Previously followed by Dr. Rendon. Vp Public Relations Required: No Accompanied by: Self / Same As Patient Allergies apple Allergy (Unknown, Verified 01/10/23 09:31) Anaphylaxis shellfish derived Allergy (Unknown, Verified 01/10/23 09:31) Anaphylaxis dexamethasone Adverse Reaction (Intermediate, Verified 01/10/23 09:31) nausea, dizziness, migraine HPI HPI Comments History of Present Illness Details 32 YO Female with a PMHx of VLAD not on CPAP, prior bariatric surgery who is seen in F/U for subclinical hyperthyroidism with a multinodular thyroid and PCOS. The patient last saw Dr. Rendon on 10/19/2022 1) PCOS: She was noted by Dr. Abreu to have androgenic pattern alopecia. This prompted a workup for PCOS. Labs were all WNL, including her overnight 1 mg DSST. Midnight salivary cortisol was elevated, but this was completed at the same time as her dexamethasone was dosed. This was repeated and was WNL. We repeated her biochemical evaluation which was all WNL. Menarche was age 11. Menses were always irregular coming sometimes coming every few weeks, sometimes not for months at a time, sometimes heavy for 2 weeks, sometimes minimal for 1-3 days. She uses an IUD for control. She has no menses with the IUD. She has a 3 year old Son. She had difficulty conceiving, but did conceive spontaneously after 2 years. She does have androgenic pattern alopecia. She denies hirsutism. Denies any acne. She weighs 278, and is 6'2. She does have a history of VLAD and does not use her CPAP. 2) Subclinical hyperthyroidism with a multinodular thyroid. She has a history of subclinical hyperthyroidism with TSH slightly below the lower limit of normal. All antibodies were assessed and were WNL. She had thyroid uptake and scan, which revealed a small focus of increased activity inferior to the thyroid gland, but was otherwise WNL. Her thyroid US revealed multiple cystic nodules, but otherwise appeared WNL. Repeat TFTs are WNL after stopping biotin. Thyroid US: 08/13/2020 Right Thyroid Lobe: 6.1 x 1.8 x 1.7 cm, volume 9.8 mL. Parenchyma: The gland echotexture is homogeneous. Thyroid vascularity is normal. Left Thyroid Lobe: 5.9 x 1.3 x 1.8 cm, volume 7.2 mL. Parenchyma: The gland echotexture is homogeneous. Thyroid vascularity is normal. Isthmus: 0.4 cm in maximum AP dimension. Estimated total number of nodules greater than or equal to 1 cm: 0. Core Analyst nodules are described as follows: 1. Location: Right inferior. ?? ? Size: 0.6 5.2 x 0.5 cm, volume 0.06 mL. ?? ? Nodule characteristics: ?? ? Composition: Spongiform (0). ?? ? Echogenicity: Anechoic (0). ?? ? Shape: Not taller than wide (0). ?? ? Margins: Smooth (0). ?? ? Echogenic Foci: None (0). ?? ? ACR TI-RADS total points: 0 ?? ? ACR TI-RADS category: 1 2. Location: Right inferior. ?? ? Size: 0.9 x 0.4 x 0.9 cm, volume 0.17 mL. ?? ? Nodule characteristics: ?? ? Composition: Spongiform (0). ?? ? Echogenicity: Anechoic (0). ?? ? Shape: Not taller than wide (0). ?? ? Margins: Smooth (0). ?? ? Echogenic Foci: None (0). ?? ? ACR TI-RADS total points: 0 ?? ? ACR TI-RADS category: 1 3. Location: Left inferior. ?? ? Size: 0.8 x 0.4 x 0.7 cm, volume 0.12 mL. ?? ? Nodule characteristics: ?? ? Composition: Cystic(0). ?? ? ACR TI-RADS total points: 0 ?? ? ACR TI-RADS category: 1 NODES: No lymphadenopathy is seen in the tissue surrounding the thyroid gland. Thyroid Uptake and Scan: 12/16/2020 FINDINGS: The uptake is 9% at 4 hours and 21.4% at 24 hours. On thyroid scan, there are normal symmetrical thyroid lobes with no focal cold defect or focal increased activity. Incidental finding of mild increased activity inferior to left thyroid lobe. Labs: Laboratory Tests 06/06/22 08:59 Cortisol Baseline 14.1 Cortisol 30 Minute 25.7 Cortisol 60 Minute 25.7 PFSH Medical History Anxiety and depression Bulging of thoracic intervertebral disc Cervicalgia Elevated C-reactive protein (CRP) Erythema intertrigo Fibromyalgia Fibromyalgia Multinodular goiter Obesity (BMI 30-39.9) Obstructive sleep apnea Pain in both feet PCOS (polycystic ovarian syndrome) Polyarthralgia Psoriasis Restless legs syndrome Shellfish allergy Subclinical hyperthyroidism Vitamin D deficiency Surgical History H/O gastric sleeve Family History Father Bipolar disorder Hypercholesterolemia HTN (hypertension) Depression Obesity Substance use disorder Mental health disorder Congestive heart failure Sleep apnea Atrial fibrillation Mother HTN (hypertension) Anxiety Sister Obesity Depression Anxiety Son Autism Social History Housing: House Alcohol intake: current Alcohol intake frequency: holidays/special occasions only Patient Tobacco Use Status: Never used Tobacco e-Cigarette/Vaping Use: Never Used Substance Use Type: Marijuana service: No Current occupational status: other 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 Thyroid gland is normal size weighs about 15 g . There are no thyroid nodules palpated Assessment & Plan Assessment & Plan (1) PCOS (polycystic ovarian syndrome): Code(s): E28.2 - Polycystic ovarian syndrome Plan: Is a 32-year-old female with history of PCOS and obesity. Other hyper androgenic causes have been ruled out including [place]'s. Plan is to have the patient follow-up with er medical technician. We talked about meal substitution. Unfortunately, her insurance plan does not cover pharmacologic treatment for obesity. There is no need for new endocrine follow-up at this point Coding Level of Care Code Est Pt Level 3 (64716) Diagnoses PCOS (polycystic ovarian syndrome) E28.2
== END 2023-01-10 09:42 | disposition home or self-care (01) ==
PROVIDERS: PCP Internal Medicine; Visit Provider Internal Medicine Endocrinology, Diabetes & Metabolism
DX: E28.2 Polycystic ovarian syndrome (principal)
CPT/HCPCS: 99213

== ENCOUNTER → 2023-01-10 09:23 | Outpatient (BNVA) | payer OTHER, SELFPAY | PROVIDERS: PCP Internal Medicine; Visit Provider Internal Medicine Endocrinology, Diabetes & Metabolism | DX: E28.2 Polycystic ovarian syndrome (principal) | CPT/HCPCS: 99212 ==

== ENCOUNTER 2023-03-02 13:00 | Outpatient (AMB) | payer OTHER, SELFPAY ==
--- NOTE | 2023-03-02 13:06 | MHC.AMNUTRGE ---
Intake VS Expanded 03/02/23 13:07 Height 6 ft 2 in Weight 320 lb 1.779 oz BMI 41.1 Intake Visit Reasons: Obesity Allergies apple Allergy (Unknown, Verified 01/10/23 09:31) Anaphylaxis shellfish derived Allergy (Unknown, Verified 01/10/23 09:31) Anaphylaxis dexamethasone Adverse Reaction (Intermediate, Verified 01/10/23 09:31) nausea, dizziness, migraine HPI Nutrition Presentation Details Pt presents for MNT follow up for obesity. Pt reports challenges with diet modifications related to increased stressed and disappointment related to insurance not covering weight loss medications. Pt reports following up regularly with a mental health care provider. Needs to resume working on reducing night time eating Physical activity: daily life activities ETOH: occ Smoking--- Most Recent Diabetes Results: No Data to Display [facility] Medical History Anxiety and depression Bulging of thoracic intervertebral disc Cervicalgia Elevated C-reactive protein (CRP) Erythema intertrigo Fibromyalgia Fibromyalgia Multinodular goiter Obesity (BMI 30-39.9) Obstructive sleep apnea Pain in both feet PCOS (polycystic ovarian syndrome) Polyarthralgia Psoriasis Restless legs syndrome Shellfish allergy Subclinical hyperthyroidism Vitamin D deficiency Surgical History H/O gastric sleeve Family History Father Bipolar disorder Hypercholesterolemia HTN (hypertension) Depression Obesity Substance use disorder Mental health disorder Congestive heart failure Sleep apnea Atrial fibrillation Mother HTN (hypertension) Anxiety Sister Obesity Depression Anxiety Son Autism Social History Housing: House Alcohol intake: current Alcohol intake frequency: holidays/special occasions only Patient Tobacco Use Status: Never used Tobacco e-Cigarette/Vaping Use: Never Used Substance Use Type: Marijuana service: No Current occupational status: other 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 Cognitive needs: No Hearing needs: No Vision needs: Yes Assessment & Plan Assessment & Plan (1) Obesity (BMI 30-39.9): Code(s): E66.9 - Obesity, unspecified Plan Est kcal needs as per msj : 2632 - 500 = 2132 est prot needs asp er 1g /kg bw: 134 g/d est fluid needs asper 25 ml/kg bw: 3350 rec Na intake < 2000 mg d/ +Pt reports having lactose intolerance and has shellfish allergy Topics reviewed and reinforced : Foods that may increase inflammation : ETOH/Sugars/Salt Food skyler can reduce inflammation : high fiber, antioxidants, water Strategies to reduce calories: lower calorie options, physical activity, stretches Mindful eating Patient Instructions: Resume working on reducing portions of foods at night reduce calories to 200 as a snack at 8 pm (glucerna shake, 2 fruits and 1 cheese sticks , yogurt and fruit - see list of ideas Coding Level of Care Code Nutr Indiv Intake (54530) Diagnoses Obesity (BMI 30-39.9) E66.9 Time Spent (min) 30
[2023-03-02 13:07] VITALS: BMI 41.1
== END 2023-03-02 13:28 | disposition home or self-care (01) ==
PROVIDERS: PCP Internal Medicine; Visit Provider Dietitian, Registered
DX: E66.9 Obesity, unspecified (principal)

== ENCOUNTER → 2023-03-02 13:00 | Outpatient (BNVA) | payer OTHER, SELFPAY | PROVIDERS: PCP Internal Medicine; Visit Provider Dietitian, Registered | DX: E66.9 Obesity, unspecified (principal); Z68.41 Body mass index [BMI] 40.0-44.9, adult | CPT/HCPCS: 97802 ==

== ENCOUNTER 2023-05-03 08:49 | Outpatient (AMB) | payer OTHER, SELFPAY ==
[2023-05-03 09:01] VITALS: BMI 39.4
--- NOTE | 2023-05-03 09:01 | A.OFFVIS_ITS ---
Intake VS Expanded 05/03/23 09:01 Height 6 ft 2 in Weight 306 lb 14.135 oz BMI 39.4 Intake Visit Reasons: Obesity/CONFIRMED Allergies apple Allergy (Unknown, Verified 01/10/23 09:31) Anaphylaxis shellfish derived Allergy (Unknown, Verified 01/10/23 09:31) Anaphylaxis dexamethasone Adverse Reaction (Intermediate, Verified 01/10/23 09:31) nausea, dizziness, migraine HPI Nutrition Presentation Details Pt presents for MNT f/u for Obesity Pt reports working on diet modifications consistently - no sodas/no beverages with sugar/reducing empty calorie beverages Reports needing to lose weight , to reach bmi of at least 35 or less for breast reduction surgery Reports keeping hydrated, choosing water with meals /snacks at least 64 oz /d denies vomiting, denies diarrhea Most Recent Diabetes Results: No Data to Display [facility] Medical History Anxiety and depression Bulging of thoracic intervertebral disc Cervicalgia Elevated C-reactive protein (CRP) Erythema intertrigo Fibromyalgia Fibromyalgia Multinodular goiter Obesity (BMI 30-39.9) Obstructive sleep apnea Pain in both feet PCOS (polycystic ovarian syndrome) Polyarthralgia Psoriasis Restless legs syndrome Shellfish allergy Subclinical hyperthyroidism Vitamin D deficiency Surgical History H/O gastric sleeve Family History Father Bipolar disorder Hypercholesterolemia HTN (hypertension) Depression Obesity Substance use disorder Mental health disorder Congestive heart failure Sleep apnea Atrial fibrillation Mother HTN (hypertension) Anxiety Sister Obesity Depression Anxiety Son Autism Social History Housing: House Alcohol intake: current Alcohol intake frequency: holidays/special occasions only Patient Tobacco Use Status: Never used Tobacco e-Cigarette/Vaping Use: Never Used Substance Use Type: Marijuana service: No Current occupational status: other 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 Cognitive needs: No Hearing needs: No Vision needs: Yes Assessment & Plan Assessment & Plan (1) Obesity (BMI 30-39.9): Code(s): E66.9 - Obesity, unspecified Plan Est kcal needs as per msj : 2632 est prot needs asp er 1g /kg bw: 134 g/d est fluid needs asper 25 ml/kg bw: 3350 rec Na intake < 2000 mg d/ +Pt reports having lactose intolerance and has shellfish allergy Topics reviewed and reinforced : Foods that may increase inflammation : ETOH/Sugars/Salt Food that can reduce inflammation : high fiber, antioxidants, water Strategies to reduce calories: lower calorie options, physical activity, stretches Mindful eating Patient Instructions: Continue working on reducing empty calorie foods Work on having a meal substitution daily and 2 meals per day following healthy plate method Coding Level of Care Code Nutr Indiv Subseq (20204) Diagnoses Obesity (BMI 30-39.9) E66.9 Time Spent (min) 20
== END 2023-05-03 09:29 | disposition home or self-care (01) ==
PROVIDERS: PCP Internal Medicine; Visit Provider Dietitian, Registered
DX: E66.9 Obesity, unspecified (principal)

== ENCOUNTER → 2023-05-03 08:49 | Outpatient (BNVA) | payer OTHER, SELFPAY | PROVIDERS: PCP Internal Medicine; Visit Provider Dietitian, Registered | DX: E66.9 Obesity, unspecified (principal); Z68.39 Body mass index [BMI] 39.0-39.9, adult; Z71.3 Dietary counseling and surveillance | CPT/HCPCS: 97803 ==

== ENCOUNTER 2023-08-02 09:20 | Outpatient (AMB) | payer OTHER, SELFPAY ==
--- NOTE | 2023-08-02 09:38 | A.OFFVIS_ITS ---
Intake VS Expanded 08/02/23 09:39 Height 6 ft 2 in Weight 302 lb 7.587 oz BMI 38.8 Intake Visit Reasons: obesity/CONFIRMED Allergies apple Allergy (Unknown, Verified 01/10/23 09:31) Anaphylaxis shellfish derived Allergy (Unknown, Verified 01/10/23 09:) Anaphylaxis dexamethasone Adverse Reaction (Intermediate, Verified 01/10/23 09:) nausea, dizziness, migraine HPI Nutrition Presentation Details Pt presents for MNT f/u for obesity Pt reports gradually working on diet modifications , reducing on portions of sugars/starches and higher fat foods Pt reports taking daily multivitamin consistently exercising 30 minutes 3 times a week lowest weight 5 yrs ago at 230 lbs (prior to preg, post sleeve gastrectomy ) Most Recent Diabetes Results: No Data to Display [facility] Medical History Anxiety and depression Bulging of thoracic intervertebral disc Cervicalgia Elevated C-reactive protein (CRP) Erythema intertrigo Fibromyalgia Fibromyalgia Multinodular goiter Obesity (BMI 30-39.9) Obstructive sleep apnea Pain in both feet PCOS (polycystic ovarian syndrome) Polyarthralgia Psoriasis Restless legs syndrome Shellfish allergy Subclinical hyperthyroidism Vitamin D deficiency Surgical History H/O gastric sleeve Family History Father Bipolar disorder Hypercholesterolemia HTN (hypertension) Depression Obesity Substance use disorder Mental health disorder Congestive heart failure Sleep apnea Atrial fibrillation Mother HTN (hypertension) Anxiety Sister Obesity Depression Anxiety Son Autism Social History Housing: House Alcohol intake: current Alcohol intake frequency: holidays/special occasions on ly Patient Tobacco Use Status: Never used Tobacco e-Cigarette/Vaping Use: Never Used Substance Use Type: Marijuana service: No Current occupational status: other 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 Cognitive needs: No Hearing needs: No Vision needs: Yes Assessment & Plan Assessment & Plan (1) Obesity (BMI 30-39.9): Comment: BMI on 02/2023 at 41.1, on 04/2023 at 39.4, on 08/2023 at 38.8 Code(s): E66.9 - Obesity, unspecified Plan Est kcal needs as per msj : 2632 est prot needs asp er 1g /kg bw: 137 g/d est fluid needs asper 25 ml/kg bw: 3350 rec Na intake < 2000 mg d/ +Pt reports having lactose intolerance and has shellfish allergy Goal weight : 290 lbs in 3-6 months Topics reviewed and reinforced : Foods that may increase inflammation : ETOH/Sugars/Salt Food that can reduce inflammation : high fiber, antioxidants, water Strategies to reduce calories: lower calorie options, physical activity, stretches Mindful eating Patient Instructions: Continue working on reduction of empty calorie foods Aim at consuming 130 g of protein distributed throughout the day Include greens n your meals (add spinach, mushroom, vegetables of choice to sauces, salads ,even if only on your plate) Coding Level of Care Code Nutr Indiv Subseq (67885) Diagnoses Obesity (BMI 30-39.9) E66.9 Time Spent (min) 30
[2023-08-02 09:39] VITALS: BMI 38.8
== END 2023-08-02 09:54 | disposition home or self-care (01) ==
PROVIDERS: PCP Internal Medicine; Visit Provider Dietitian, Registered
DX: E66.9 Obesity, unspecified (principal)

== ENCOUNTER → 2023-08-02 09:20 | Outpatient (BNVA) | payer OTHER, SELFPAY | PROVIDERS: PCP Internal Medicine; Visit Provider Dietitian, Registered | DX: E66.9 Obesity, unspecified (principal); Z68.38 Body mass index [BMI] 38.0-38.9, adult | CPT/HCPCS: 97803 ==

== ENCOUNTER 2023-09-07 12:59 | Outpatient (AMB) | payer OTHER, SELFPAY ==
--- NOTE | 2023-09-07 13:01 | MHC.PC.OV ---
Vital Signs 09/07/23 13:03 Height 6 ft 2 in Weight 302 lb BMI 38.8 BP 128/74 Blood Pressure Location Lt brachial Position Sitting Pulse 86 Pulse Source Pulse Oximeter Pulse Oximetry (%) 96 Oxygen Delivery Method Room Air Intake Visit Reasons: Annual needs to be in on time plz tight sched. Intake Note: pt here for annual PE. Last Pap 07/30/20 Allergies apple Allergy (Unknown, Verified 09/07/23 13:16) Anaphylaxis shellfish derived Allergy (Unknown, Verified 09/07/23 13:16) Anaphylaxis dexamethasone Adverse Reaction (Intermediate, Verified 09/07/23 13:16) nausea, dizziness, migraine Medication List - Last Reconciled 09/07/23 by MEGAN Malik acetaminophen ER (Tylenol 8 Hour) 650 mg PO Q12H apremilast (Otezla) 30 mg PO BID [B COMPLEX PO] betamethasone, augmented 0.05 % topical calcipotriene 0.005% topical BID clotrimazole-betamethasone 1-0.05 % 1 appl topical BID PRN 10 days [MULTIVITAMIN PO] [OMEGA-3 PO] venlafaxine ER 150 mg PO DAILY Tobacco use date assessed: 09/07/23 Dental Screening Dental Screen Date: 09/07/23 Did you have a dental visit in the last 12 months?: No Did you have a dental problem in the last 6 months where you did not have access to dental care?: No Was dental information given to patient?: Patient has dentist HPI HPI Comments History of Present Illness Details Patient is a 32-year-old female in today for physical exam. Patient is up-to-date with Tdap next booster is due in 2027 Patient has established care with [facility] for [facility] [employer]. She has a past medical history significant for: PCOS-has establish care with [facility] OBGYN Anxiety depression-currently seeing therapist. Does not want psychiatrist. VLAD-last appointment with Sleep Medicine was 2020. Was going to pursue micro CPAP machine. Will refer. Migraines-Patient would [facility]. Psoriasis-patient has establish care with Dermatology. Controlled. Lumbar stenosis-has history with [facility]. Utilizing Tylenol intermittently. Also utilizing medicare specialist and acupuncture with moderate effect. Multi tan thyroid nodule-has establish care with endocrinology. [facility] Medical History (Updated 09/07/23 @ 13:49 by MEGAN Malik) Erythema intertrigo Pain in both feet PCOS (polycystic ovarian syndrome) Psoriasis Cervicalgia Bulging of thoracic intervertebral disc Obstructive sleep apnea Anxiety and depression Fibromyalgia Subclinical hyperthyroidism Fibromyalgia Obesity (BMI 30-39.9) Multinodular goiter Polyarthralgia Restless legs syndrome Elevated C-reactive protein (CRP) Vitamin D deficiency Shellfish allergy Surgical History H/O gastric sleeve Family History Father Bipolar disorder Hypercholesterolemia HTN (hypertension) Depression Obesity Substance use disorder Mental health disorder Congestive heart failure Sleep apnea Atrial fibrillation Mother HTN (hypertension) Anxiety Sister Obesity Depression Anxiety Son Autism Social History Housing: House Alcohol intake: current Alcohol intake frequency: holidays/special occasions only Patient Tobacco Use Status: Never used Tobacco e-Cigarette/Vaping Use: Never Used Substance Use Type: Marijuana service: No Current occupational status: other 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 1. Little interest or pleasure in doing things: more than half the days 2. Feeling down, depressed, or hopeless: more than half the days 3. Trouble falling or staying asleep, or sleeping too much: nearly every day 4. Feeling tired or having little energy: nearly every day 5. Poor appetite or overeating: nearly every day 6. Feeling bad about yourself - or that you are a failure or have let yourself or your family down: more than half the days 7. Trouble concentrating on things, such as reading the newspaper or watching television: nearly every day 8. Moving or speaking so slowly that other people could have noticed. Or the opposite - being so fidgety or restless that you have been moving around a lot more than usual: nearly every day 9. Thoughts that you would be better off or of hurting yourself in some way: not at all Total score: 21 Depression Screening Interpretation: Positive Depression Screening Follow-up: Existing condition and In treatment Depression Screening Done: Yes 20906 - PHQ-9 Billing: Yes Source: Developed by Drs. Terence Ceja, Adriane Corey, Ganesh Dumas and colleagues, with an educational fan from [employer]. Thrive Questionnaire Date Thrive assessed: 09/07/23 I am a: Patient What is your living situation today?: I have a steady place to live Within the past 12 months, did the food you bought not last and you didn't have the money to get more?: Sometimes True Within the past 12 months, did you worry whether your food would run out before you got money to buy more?: Sometimes True Do you have trouble paying for medicines?: Yes Do you have trouble getting transportation to medical appointments?: No Do you have trouble paying your heating and electricity bill?: Yes Do you have trouble taking care of your child, family member or friend?: No Do you have trouble with day-to-day activities such as bathing, preparing meals, shopping, managing finances, etc.?: Yes Are you currently unemployed and looking for a job?: No Are you interested in more education?: No Please select the resources that you would like help with: None Currently or been in a relationship where the following occur: I choose not to answer this question THRIVE Score: 3 AUDIT C Alcohol Use Questionnaire (AUDIT-C) 1. How often do you have a drink containing alcohol?: 2-4 times a month 2. How many drinks containing alcohol do you have on a typical day when you are drinking?: 3 or 4 3. How often do you have six or more drinks on one occasion?: Never Total Score: 3 Score Reviewed/Action Taken: Yes REY-7 AMB Questionnaire REY-7 Date REY - 7 assessed: 09/07/23 Feeling nervous, anxious, or on edge: 3 = Nearly every day Not being able to stop or control worryin = Nearly every day Worrying too much about different things: 3 = Nearly every day Trouble relaxin = Nearly every day Being so restless that it is hard to sit still: 3 = Nearly every day Becoming easily annoyed or irritable: 3 = Nearly every day Feeling afraid as if something awful might happen: 3 = Nearly every day Total REY-7 score (0-4 normal; 5-9 mild; 10-14 moderate; 15-21 severe): 21 Source: Developed by Drs. Terence Ceja, Adriane Corey, Ganesh Dumas and colleagues, with an educational fan from [employer]. REY-7 Assessment Billing REY-7 Assessment Tool: REY-7 Assessment 59954 (Patient currently seeing therapist. Declined psychiatric referral. Does not want medication at this time.) Review of Systems Const All systems reviewed & are unremarkable except as noted in HPI and below Psych Denies homicidal ideation and Denies suicidal ideation Physical exam (Primary Care) Care Plan Goal for BP management: Blood pressure is controlled Tobacco/Smoking Status: Tobacco use Status Tobacco use date assessed 06/02/22 09/07/23 13:01 Patient Tobacco Use Status Never used Tobacco 09/07/23 13:01 e-Cigarette/Vaping Use Never Used 09/07/23 13:01 Depression Screening Interpretation: Positive Depression Screening Follow-up: Existing condition and In treatment Thrive Assessment: Date of Thrive Assessment Date Thrive assessed 06/02/22 09/07/23 13:01 Currently or been in a relationship where the following occur: I choose not to answer this question Const General: cooperative and no acute distress Nutritional Appearance: obese Limitations: no limitations HENMT Head: Yes normal to inspection and Yes normocephalic Ears: TM's normal bilaterally General nose exam: Normal external nose present Eyes Sclerae: sclerae normal Pupils: Equal, round and reactive pupils present Direct Ophthalmoscopy: normal light reflex and no photophobia Neck Neck: Yes normal visual inspection, Yes full ROM and Yes no lymphadenopathy Resp Auscultation: clear to auscultation bilaterally Cardio Rate: regular rate Rhythm: regular rhythm Heart sounds: S1 normal heart sound present and S2 normal heart sound present Peripheral pulses: Peripheral pulses 2+ throughout GI Inspection: Yes normal to inspection Auscultation: normal bowel sounds General: Yes no CVA tenderness OB/external & speculum: Deferred OB/external & speculum exam Back/Spine/Pelvis Back: no CVA tenderness Skin General skin exam: no rashes or lesions noted Neuro Cranial nerves: Yes Equal, round and reactive pupils present Cognition (Neuro): normal cognition Gait exam (Neuro): Normal gait present Motor exam (neuro): 5/5 motor strength present throughout Extrem General: Yes normal to inspection Psych Thought process: Normal thought process present Thought content: Normal thought content present Insight: Good insight present (Psych) Judgement: Good judgement present (Psych) Assessment and Plan Assessment & Plan (1) Encounter for routine adult physical exam with abnormal findings: Comment: Will draw fasting labs. Patient up-to-date with Pap smear [facility]. Reports Pap smear in 2022. Up-to-date with Tdap. Code(s): Z00.01 - Encounter for general adult medical examination with abnormal findings (2) Migraine: Comment: Patient would like referral to [facility] Neurology. Code(s): G43.909 - Migraine, unspecified, not intractable, without status migrainosus Qualifiers: Migraine type: other Status migrainosus presence: without status migrainosus Intractability: not intractable Qualified Code(s): G43.809 - Other migraine, not intractable, without status migrainosus (3) Psoriasis: Comment: Establish care with Dermatology. Utilizing Otezla with good effect. Code(s): L40.9 - Psoriasis, unspecified (4) PCOS (polycystic ovarian syndrome): Comment: Has establish care with OBGYN Code(s): E28.2 - Polycystic ovarian syndrome (5) Anxiety and depression: Comment: Has establish care with therapist. Patient has declined psychiatrist. Does not want medication at this time. Denies SI/HI Code(s): F41.9 - Anxiety disorder, unspecified; F32.A - Depression, unspecified (6) Lumbar foraminal stenosis: Comment: History with [facility]. Patient would likely benefit from losing weight. Has establish care with our weight loss clinic. Code(s): M48.061 - Spinal stenosis, lumbar region without neurogenic claudication (7) Obesity (BMI 30-39.9): Comment: BMI on 02/2023 at 41.1, on 04/2023 at 39.4, on 08/2023 at 38.8. Patient has establish care with weight loss clinic. Has history of bariatric surgery. Code(s): E66.9 - Obesity, unspecified (8) Vitamin D deficiency: Comment: Will redraw labs today. Patient prescribed vitamin-D 2000 units per day. Code(s): E55.9 - Vitamin D deficiency, unspecified (9) Pain in both feet: Comment: Will refer to Podiatry. Patient been educated utilize proper footwear. Code(s): M79.671 - Pain in right foot; M79.672 - Pain in left foot Plan: Will follow-up with labs. Plan Follow-up in 4 months. Orders: Orders Vitamin D 25-OH (D2 and D3) Today M48.061 - Spinal stenosis, lumbar region without neurogenic claudication Vitamin B6 Today Z13.21 - Encounter for screening for nutritional disorder UA CC w/rflx Micro + Cult Today Z13.89 - Encounter for screening for other disorder TSH reflex Free T4 Today Z13.29 - Encounter for screening for other suspected endocrine disorder XR cervical spine 3V Today M54.9 - Dorsalgia, unspecified Vitamin B12 Today Z13.21 - Encounter for screening for nutritional disorder Lipid Panel Today Z13.220 - Encounter for screening for lipoid disorders Complete Blood Count Auto Diff Today Z13.0 - Encounter for screening for diseases of the blood and blood-forming organs and certain disorders involving the immune mechanism Comprehensive Met. Panel Today Z91.89 - Other specified personal risk factors, not elsewhere classified Referrals Neurology Referral G43.909 - Migraine, unspecified, not intractable, without status migrainosus Podiatry Referral M79.671 - Pain in right foot, M79.672 - Pain in left foot Medications: New acetaminophen ER (Tylenol 8 Hour) 650 mg PO Q12H 60 tabs 0RF cholecalciferol (vitamin D3) 50 mcg PO DAILY 90 caps 0RF Coding Level of Care Code Est Pt Prev Care 18-39y(95492) Diagnoses Encounter for routine adult physical exam with abnormal findings Z00.01 Other migraine without status migrainosus, not intractable G43.809 Migraine type: other Status migrainosus presence: without status migrainosus Intractability: not intractable Psoriasis L40.9 PCOS (polycystic ovarian syndrome) E28.2 Anxiety and depression F41.9; F32.A Lumbar foraminal stenosis M48.061 Obesity (BMI 30-39.9) E66.9 Vitamin D deficiency E55.9 Pain in both feet M79.671; M79.672 Additional Codes REY-7 Assessment Billing - REY-7 Assessment Tool: REY-7 Assessment 48150 ([id number]) Time Spent (min) 35
[2023-09-07 13:03] VITALS: BP 128/74; PULSE 86; O2SAT 96; BMI 38.8
== END 2023-09-07 13:43 | disposition home or self-care (01) ==
PROVIDERS: PCP Internal Medicine; Visit Provider Nurse Practitioner Primary Care
DX: Z00.00 Encounter for general adult medical examination without abnormal findings (principal); G43.809 Other migraine, not intractable, without status migrainosus; L40.9 Psoriasis, unspecified; E28.2 Polycystic ovarian syndrome; F41.9 Anxiety disorder, unspecified; F32.A Depression, unspecified; M48.061 Spinal stenosis, lumbar region without neurogenic claudication; E66.9 Obesity, unspecified; E55.9 Vitamin D deficiency, unspecified; M79.671 Pain in right foot; M79.672 Pain in left foot; Z68.38 Body mass index [BMI] 38.0-38.9, adult
CPT/HCPCS: 99395

== ENCOUNTER 2023-09-13 08:31 | Outpatient (REF) | payer OTHER, SELFPAY ==
--- NOTE | ~2023-09-13 | XR_ITS ---
EXAMINATION: XR CERVICAL SPINE CLINICAL INFORMATION: Neck pain. COMPARISON: None available. TECHNIQUE: 5 views of the cervical spine. FINDINGS: Mild multilevel cervical spondylosis most notable at C4-C5-C6-C7 levels. Cervical disc space heights are preserved. XR/XR cervical spine 3V IMPRESSION: Mild multilevel cervical spondylosis.
[2023-09-13 10:18] LABS: Appearance Urine Clear; Color Urine Yellow; Glucose Urine UA Negative (Negative); Leukocyte Esterase Urine Negative (Negative); Nitrite Urine Negative (Negative); UMIC TRIGGER UACC YES; Urine Blood Trace (Negative); Urine Ketones Negative (Negative); Urine Protein Negative (Neg-Trace)
[2023-09-13 10:20] LABS: Bacteria Urine Trace (None Seen); Hyaline Casts Urine 0-2 /LPF (0-2); WBC Urine 0-5 /HPF (0-5)
[2023-09-13 10:26] LABS: MANUAL DIFF FLAG NO
[2023-09-13 10:42] LABS: Basophils Percent Auto 0.4 % (0-2); Eosinophils Absolute Auto 0.1 X10*3/uL (0.0-0.4); Eosinophils Percent Auto 1.9 % (0-4); Hematocrit 43.6 % (37.0-47.0); Hemoglobin 14.6 g/dl (12.0-16.0); Imm Gran Abs Auto 0.01 X10*3/uL (0.00-0.03); Imm Gran Pct Auto 0.2 % (0.0-0.4); Lymphocytes Percent Auto 39.4 % (20-40); Mean Corpuscular HGB Conc 33.5 g/dl (31.0-35.0); Mean Corpuscular Hemoglobin 31.4 pg (27.0-33.0); Mean Corpuscular Volume 93.8 fL (80.0-98.0); Mean Platelet Volume 9.1 fL (9.4-12.3); Monocytes Absolute Auto 0.4 X10*3/uL (0.1-1.2); Monocytes Percent Auto 7.7 % (2-11); Neutrophils Absolute Auto 2.6 x10*3/uL (2.0-8.3); Neutrophils Percent Auto 50.4 % (45-73); Platelet Count 300 X10*3/uL (160-400); Red Blood Count 4.65 X10*6/uL (4.20-5.50); Red Cell Distribution Width 12.9 % (11.0-16.0); White Blood Count 5.2 X10*3/uL (4.8-10.8)
[2023-09-13 11:07] LABS: Alanine Aminotransferase 20 U/L (0-31); Albumin Level 4.2 g/dL (3.5-5.0); Alkaline Phosphatase 53 U/L (39-117); Anion Gap 10 (12-20); Aspartate Amino Transferase 17 U/L (5-31); Bilirubin Total 1.1 mg/dL (0.0-1.0); Blood Urea Nitrogen 12 mg/dL (9-16); Calcium 9.4 mg/dL (8.4-10.2); Carbon Dioxide 27 mmol/L (22-29); Chloride 107 mmol/L (96-108); Cholesterol 193 mg/dL (<200); Estimated Glomerular Filt Rate > 60; Glucose Random 90 mg/dL (60-115); HDL Cholesterol 50 mg/dL (>40); LDL Cholesterol Calculated 129 mg/dL (<100); Potassium 4.1 mmol/L (3.3-5.1); Sodium 140 mmol/L (135-145); Total Protein 7.3 g/dL (6.5-8.0); Triglycerides 73 mg/dL (<150)
[2023-09-13 11:20] LABS: Vitamin B12 389 pg/mL (200-900)
[2023-09-13 11:29] LABS: TSH reflex Free T4 0.37 uIU/mL (0.32-4.0)
[2023-09-18 15:03] LABS: Vitamin B6 32.7 ng/mL (2.1-21.7)
[2023-09-19 14:23] LABS: Vitamin D 25-OH, D2 <4 ng/mL; Vitamin D 25-OH, D3 34 ng/mL; Vitamin D 25-OH, Total 34 ng/mL (30-100)
== END 2023-09-13 08:32 | disposition home or self-care (01) ==
LOC: HO.HMGCX 08:31
PROVIDERS: PCP Internal Medicine; Visit Provider Nurse Practitioner Primary Care
DX: M54.9 Dorsalgia, unspecified (principal); Z13.21 Encounter for screening for nutritional disorder; Z13.220 Encounter for screening for lipoid disorders; Z13.29 Encounter for screening for other suspected endocrine disorder; Z91.89 Other specified personal risk factors, not elsewhere classified; Z13.0 Encounter for screening for diseases of the blood and blood-forming organs and certain disorders involving the immune mechanism
CPT/HCPCS: 36415; 72040; 80053; 80061; 81001; 82306; 82607; 84207; 84443; 85025

== ENCOUNTER → 2023-09-25 15:35 | Outpatient (BNVA) | payer OTHER, SELFPAY | PROVIDERS: PCP Internal Medicine; Visit Provider Nurse Practitioner Family | DX: G43.109 Migraine with aura, not intractable, without status migrainosus (principal); G25.81 Restless legs syndrome; G47.33 Obstructive sleep apnea (adult) (pediatric); R53.83 Other fatigue | CPT/HCPCS: 99202 ==

== ENCOUNTER → 2023-11-08 09:01 | Outpatient (REF) | payer MEDICARE, MEDICAID, SELFPAY | LOC: HO.SL 09:01 | PROVIDERS: PCP Internal Medicine; Visit Provider Nurse Practitioner Family | DX: G47.33 Obstructive sleep apnea (adult) (pediatric) (principal); R53.83 Other fatigue | CPT/HCPCS: 95806 ==

== ENCOUNTER → 2023-11-08 09:20 | Outpatient (BNV) | payer MEDICARE, MEDICAID, SELFPAY | PROVIDERS: PCP Internal Medicine; Visit Provider Psychiatry & Neurology Neurology | DX: R06.83 Snoring (principal) | CPT/HCPCS: 95806 ==

== ENCOUNTER 2023-11-27 10:29 | Outpatient (AMB) | payer OTHER, SELFPAY ==
[2023-11-27 10:36] VITALS: BMI 37.7
--- NOTE | 2023-11-27 10:36 | MHC.AMNUTRGE ---
VS Expanded 11/27/23 10:36 Height 6 ft 2 in Weight 293 lb 10.491 oz BMI 37.7 Intake Visit Reasons: Monitor weight/CONFIRMED Allergies apple Allergy (Unknown, Verified 09/25/23 16:04) Anaphylaxis shellfish derived Allergy (Unknown, Verified 09/25/23 16:04) Anaphylaxis dexamethasone Adverse Reaction (Intermediate, Verified 09/25/23 16:04) nausea, dizziness, migraine Nutrition Presentation Details: Pt presents for MNT f/u for pre DM Pt reports doing better, working on diet modifications, mainly reducing on sweets Notices inc bowels with dairy- and working on choosing lactose free options physical activity: as able Reports she was advised to reach BMI of 32-35 in order to have breast reduction Pt reports taking daily MVI related to hx of gastric sleeve surgery in 2014 , denies taking additional B supplements BS Monitoring Most Recent Diabetes Results: Cholesterol 193 mg/dL (<200) 09/13/23 HDL Cholesterol 50 mg/dL (>40) 09/13/23 Triglycerides 73 mg/dL (<150) 09/13/23 Creatinine 0.85 mg/dL (0.5-1.4) 09/13/23 Blood Urea Nitrogen 12 mg/dL (9-16) 09/13/23 Sodium 140 mmol/L (135-145) 09/13/23 Potassium 4.1 mmol/L (3.3-5.1) 09/13/23 Chloride 107 mmol/L (96-108) 09/13/23 Carbon Dioxide 27 mmol/L (22-29) 09/13/23 Calcium 9.4 mg/dL (8.4-10.2) 09/13/23 AST 17 U/L (5-31) 09/13/23 ALT 20 U/L (0-31) 09/13/23 Total Protein 7.3 g/dL (6.5-8.0) 09/13/23 Albumin 4.2 g/dL (3.5-5.0) 09/13/23 [id number].Jeor Equation Height: 6 ft 3 in Weight: 294 lb Resting Metabolic Rate: 2199.49 Calculated Activity Level: Sedentary Calories Needed to Maintain Weight: 2639.39 [facility] Medical History (Updated 11/27/23 @ 13:[address], LDN) Erythema intertrigo Pain in both feet PCOS (polycystic ovarian syndrome) Psoriasis Cervicalgia Bulging of thoracic intervertebral disc Obstructive sleep apnea Anxiety and depression Fibromyalgia Subclinical hyperthyroidism Fibromyalgia Obesity (BMI 30-39.9) Multinodular goiter Polyarthralgia Restless legs syndrome Elevated C-reactive protein (CRP) Vitamin D deficiency Shellfish allergy Surgical History H/O gastric sleeve Family History Father Bipolar disorder Hypercholesterolemia HTN (hypertension) Depression Obesity Substance use disorder Mental health disorder Congestive heart failure Sleep apnea Atrial fibrillation Mother HTN (hypertension) Anxiety Sister Obesity Depression Anxiety Son Autism Social History Housing: House Alcohol intake: current Alcohol intake frequency: holidays/special occasions only Patient Tobacco Use Status: Never used Tobacco e-Cigarette/Vaping Use: Never Used Substance Use Type: Marijuana service: No Current occupational status: other 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 Had sleeve gastrectomy in 2014. Code(s): E66.9 - Obesity, unspecified Category: Medical Plan Est kcal needs as per msj : 2632 est prot needs asp er 1g /kg bw: 134 g/d est fluid needs asper 25 ml/kg bw: 6470-6526 rec Na intake < 2000 mg d/ +Pt reports having lactose intolerance and has shellfish allergy Goal weight : 290 lbs Topics reviewed and reinforced : Balancing meals: healthy plate method, fruits, veg, lactose free dairy, omega 3 sources of foods Strategies to reduce calories: lower calorie options, physical activity, stretches Continue Mindful eating, relaxation keeping hydrated Patient Instructions: Continue working on meal planning following healthy plate mehod keep hydrated Coding Level of Care Code Nutr Indiv Subseq (92825) Diagnoses Obesity (BMI 30-39.9) E66.9 Time Spent (min) 20
[2023-11-27 13:27] VITALS: BMI 36.7
== END 2023-11-27 11:13 | disposition home or self-care (01) ==
PROVIDERS: PCP Internal Medicine; Visit Provider Dietitian, Registered
DX: E66.9 Obesity, unspecified (principal)

== ENCOUNTER → 2023-11-27 10:29 | Outpatient (BNVA) | payer OTHER, SELFPAY | PROVIDERS: PCP Internal Medicine; Visit Provider Dietitian, Registered | DX: E66.9 Obesity, unspecified (principal); Z68.37 Body mass index [BMI] 37.0-37.9, adult | CPT/HCPCS: 97803 ==

== ENCOUNTER 2023-12-13 12:54 | Outpatient (AMB) | payer MEDICARE, MEDICAID, SELFPAY ==
[2023-12-13 12:57] VITALS: BP 126/78; PULSE 73; O2SAT 99; BMI 36.5
--- NOTE | 2023-12-13 12:57 | A.OFFPC_ITS ---
Vital Signs 12/13/23 12:57 Height 6 ft 3 in Weight 292 lb BMI 36.5 BP 126/78 Blood Pressure Location Lt brachial Position Sitting Pulse 73 Pulse Source Pulse Oximeter Pulse Oximetry (%) 99 Oxygen Delivery Method Room Air Intake Visit Reasons: 3 month f/u Intake Note: Pt is here today for 3 months follow up visit. Allergies apple Allergy (Unknown, Verified 12/13/23 13:25) Anaphylaxis shellfish derived Allergy (Unknown, Verified 12/13/23 13:25) Anaphylaxis dexamethasone Adverse Reaction (Intermediate, Verified 12/13/23 13:25) nausea, dizziness, migraine Medication List - Last Reconciled 12/13/23 by Anahi Kurtz MD acetaminophen ER (Tylenol 8 Hour) 650 mg PO Q12H alpha lipoic acid 600 mg PO DAILY 30 days amoxicillin 500 mg PO BID apremilast (Otezla) 30 mg PO BID betamethasone, augmented 0.05 % topical calcipotriene 0.005% topical BID clotrimazole-betamethasone 1-0.05 % 1 appl topical BID PRN 10 days magnesium oxide 400 mg PO BEDTIME 30 days [MULTIVITAMIN PO] Tobacco use date assessed: 12/13/23 Dental Screening Dental Screen Date: 09/07/23 HPI 3 month f/u HPI Details 33-year-old lady with morbid obesity, wi th history of migraine, supplemental hyperthyroidism, chronic low back pain, obstructive sleep apnea, PCOS here today complaining of difficulty with losing weight. Unable to exercise much due to her back and pain both feet, and has been trying to follow healthy diet but still not seeing any change in her weight. Would like to try using Wegovy to help with her weight loss. [facility] Medical History (Updated 12/13/23 @ 13:30 by Anahi Kurtz MD) Erythema intertrigo Pain in both feet PCOS (polycystic ovarian syndrome) Psoriasis Cervicalgia Bulging of thoracic intervertebral disc Obstructive sleep apnea Anxiety and depression Fibromyalgia Subclinical hyperthyroidism Fibromyalgia Obesity (BMI 30-39.9) Multinodular goiter Polyarthralgia Restless legs syndrome Elevated C-reactive protein (CRP) Vitamin D deficiency Shellfish allergy Surgical History H/O gastric sleeve Family History Father Bipolar disorder Hypercholesterolemia HTN (hypertension) Depression Obesity Substance use disorder Mental health disorder Congestive heart failure Sleep apnea Atrial fibrillation Mother HTN (hypertension) Anxiety Sister Obesity Depression Anxiety Son Autism Social History Housing: House Alcohol intake: current Alcohol intake frequency: holidays/special occasions only Patient Tobacco Use Status: Never used Tobacco e-Cigarette/Vaping Use: Never Used Substance Use Type: Marijuana service: No Current occupational status: other 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 1. Little interest or pleasure in doing things: nearly every day 2. Feeling down, depressed, or hopeless: nearly every day 3. Trouble falling or staying asleep, or sleeping too much: nearly every day 4. Feeling tired or having little energy: nearly every day 5. Poor appetite or overeating: nearly every day 6. Feeling bad about yourself - or that you are a failure or have let yourself or your family down: more than half the days 7. Trouble concentrating on things, such as reading the newspaper or watching television: several days 8. Moving or speaking so slowly that other people could have noticed. Or the opposite - being so fidgety or restless that you have been moving around a lot more than usual: several days 9. Thoughts that you would be better off or of hurting yourself in some way: not at all Total score: 19 Depression Screening Interpretation: Positive (Getting very depressed due to inability to lose weight) Depression Screening Done: Yes Source: Developed by Drs. Terence Ceja, Adriane Corey, Ganesh Dumas and colleagues, with an educational fan from [employer]. Thrive Questionnaire Date Thrive assessed: 12/06/23 I am a: Patient What is your living situation today?: I have a steady place to live Within the past 12 months, did the food you bought not last and you didn't have the money to get more?: Sometimes True Within the past 12 months, did you worry whether your food would run out before you got money to buy more?: Sometimes True Do you have trouble paying for medicines?: Yes Do you have trouble getting transportation to medical appointments?: No Do you have trouble paying your heating and electricity bill?: Yes Do you have trouble taking care of your child, family member or friend?: I choose not to answer this question Do you have trouble with day-to-day activities such as bathing, preparing meals, shopping, managing finances, etc.?: Yes Are you currently unemployed and looking for a job?: I choose not to answer this question Are you interested in more education?: No Please select the resources that you would like help with: Housing/Correction, Food, Paying for medicine, Utilities and Daily support Currently or been in a relationship where the following occur: Controlled Financially, Controlled Emotionally and No concerns reported THRIVE Score: 5 AUDIT C Alcohol Use Questionnaire (AUDIT-C) 1. How often do you have a drink containing alcohol?: Monthly or less 2. How many drinks containing alcohol do you have on a typical day when you are drinking?: 1 or 2 3. How often do you have six or more drinks on one occasion?: Never Total Score: 1 REY-7 AMB Questionnaire REY-7 Date REY - 7 assessed: 09/07/23 Feeling nervous, anxious, or on edge: 3 = Nearly every day Not being able to stop or control worryin = Nearly every day Worrying too much about different things: 3 = Nearly every day Trouble relaxin = Nearly every day Being so restless that it is hard to sit still: 3 = Nearly every day Becoming easily annoyed or irritable: 3 = Nearly every day Feeling afraid as if something awful might happen: 2 = More than half the days Total REY-7 score (0-4 normal; 5-9 mild; 10-14 moderate; 15-21 severe): 20 Source: Developed by Drs. Terence Ceja, Adriane Corey, Ganesh Dumas and colleagues, with an educational fan from [employer]. REY-7 Assessment Billing REY-7 Assessment Tool: REY-7 Assessment 83117 Review of Systems Const All systems reviewed & are unremarkable except as noted in HPI and below Physical exam (Primary Care) Vital Signs: Last Vital Signs Pulse 73 12/13/23 12:57 BP 126/78 12/13/23 12:57 Pulse Ox 99 12/13/23 12:57 Oxygen Delivery Method Room Air 12/13/23 12:57 BMI result Body Mass Index 36.5 Tobacco/Smoking Status: Tobacco use Status Tobacco use date assessed 12/13/23 12/13/23 13:18 Patient Tobacco Use Status Never used Tobacco 12/13/23 13:18 e-Cigarette/Vaping Use Never Used 12/13/23 12:57 PHQ-9: PHQ-9 Score PHQ-9: Total score 19 12/13/23 13:44 Depression Screening Interpretation: Positive (Getting very depressed due to inability to lose weight) Thrive Assessment: Date of Thrive Assessment Date Thrive assessed 12/06/23 12/13/23 12:57 Currently or been in a relationship where the following occur: Controlled Financially, Controlled Emotionally and No concerns reported Const General: cooperative and no acute distress Nutritional Appearance: obese HENMT Head: Yes normal to inspection and Yes normocephalic General nose exam: Normal external nose present Neck Neck: Yes normal visual inspection, Yes full ROM and Yes no lymphadenopathy Resp Auscultation: clear to auscultation bilaterally Cardio Rate: regular rate Rhythm: regular rhythm Heart sounds: S1 normal heart sound present and S2 normal heart sound present Peripheral pulses: Peripheral pulses 2+ throughout GI Inspection: Yes normal to inspection Auscultation: normal bowel sounds Neuro Cognition (Neuro): normal cognition Gait exam (Neuro): Normal gait present Motor exam (neuro): 5/5 motor strength present throughout Extrem General: Yes normal to inspection Psych Thought process: Normal thought process present Thought content: Normal thought content present Assessment and Plan Assessment & Plan (1) Obesity (BMI 30-39.9): Comment: BMI on 02/2023 at 41.1, on 04/2023 at 39.4, on 08/2023 at 38.8, 11/2023 at 37.7 (11/2023). Had sleeve gastrectomy in 2014. Code(s): E66.9 - Obesity, unspecified Plan: Patient has tried losing weight through diet, but has not been able to do any meaningful exercise due to her chronic low back pain and bilateral foot pain. Will try her on Wegovy, start at 0.25 mg per injection administered once a week. Patient instructed on proper use of the medication, discussed possible side effects of the medication which may include abdominal cramping, nausea vomiting, and increased risk for pancreatitis. Advised to combined this with healthy eating habits and try to start doing some form of exercise. Will see her back for follow-up in 4 weeks after starting the medication. (2) Obstructive sleep apnea: Comment: ff'd by Dr Lopez Code(s): G47.33 - Obstructive sleep apnea (adult) (pediatric) Plan: Followed by [facility] sleep clinic Medications: New semaglutide (weight loss) (Kevin) administer weeks 1 through 4 of therapy 0.25 mg (0.5 mL) subcut QWEEK 2 mL 0RF E66.9 - Obesity, unspecified, G47.33 - Obstructive sleep apnea (adult) (pediatric), M48.061 - Spinal stenosis, lumbar region without neurogenic claudication Coding Level of Care Code Est Pt Level 3 (25716) Diagnoses Obesity (BMI 30-39.9) E66.9 Obstructive sleep apnea G47.33 Additional Codes REY-7 Assessment Billing - REY-7 Assessment Tool: REY-7 Assessment 76318 ([id number])
== END 2023-12-13 13:50 | disposition home or self-care (01) ==
PROVIDERS: PCP Internal Medicine; Visit Provider Internal Medicine
DX: G47.33 Obstructive sleep apnea (adult) (pediatric) (principal); E66.9 Obesity, unspecified; Z68.36 Body mass index [BMI] 36.0-36.9, adult
CPT/HCPCS: 99213

== ENCOUNTER 2024-01-26 07:34 | Outpatient (AMB) | payer MEDICARE, MEDICAID, SELFPAY ==
[2024-01-26 07:31] VITALS: BMI 36.5
--- NOTE | 2024-01-26 07:31 | A.OFFVIS_ITS ---
Vital Signs 01/26/24 07:31 Height 6 ft 3 in Weight 292 lb BMI 36.5 Intake Visit Reasons: Follow up Credit [employer] Manager Required: No Allergies apple Allergy (Unknown, Verified 01/26/24 07:32) Anaphylaxis shellfish derived Allergy (Unknown, Verified 01/26/24 07:32) Anaphylaxis dexamethasone Adverse Reaction (Intermediate, Verified 01/26/24 07:32) nausea, dizziness, migraine Medication List - Last Reconciled 01/26/24 by MEGAN Miles acetaminophen ER (Tylenol 8 Hour) 650 mg PO Q12H alpha lipoic acid 600 mg PO DAILY 30 days amoxicillin 500 mg PO BID apremilast (Otezla) 30 mg PO BID betamethasone, augmented 0.05 % topical calcipotriene 0.005% topical BID clotrimazole-betamethasone 1-0.05 % 1 appl topical BID PRN 10 days magnesium oxide 400 mg PO BEDTIME 30 days [MULTIVITAMIN PO] semaglutide (weight loss) (Wegovy) 0.25 mg (0.5 mL) subcut QWEEK HPI Comments Details: Right-handed 33-yr-old female presents for f/u of sleep and headache disorder. Pt reports she has been having headaches here and there- now 1-2 x's per week with decreased duration to 45-60 minutes to a few hours. Some of the headaches have responded to doing PT exercises. She has been having neck tightness, w/wo headache, a/w RUE numbness and tingling and LUE pins and needles. She has started PT for her neck and now more for pcpvirb-bihpslo-ppyrjq therapy. HST did not show sleep apnea, O2 nata was 87%, snoring for ~30% of study. Pt reports she continues to have snoring, excessive daytime sleepiness, fatigue, restless sleep, Restless legs- urge to move legs, has to rock herself to fall asleep, occasional Leg Cramps, bruxism. She started the alpha-lipoic acid and Magnesium, which she feels is helping. She received the Riboflavin once. She has not received the Nurtec- though was approved in September. She was approved for Medicare in Dec. She has not had labs drawn yet. 09/25/23, Initial HPI: Pt reports she has had migraine all her life, at least since middle school. She also reports she has sleep apnea, and having difficulty using her CPAP d/t restless sleep. PMHand ROS notable for:? Musculoskeletal disorders or injury: fibromyalgia, degenertaive disc disease, lumbar stenosis, numbness and tingling in BLE, R > L. Mood d/o: Anxiety, Depression. Has addictive tendencies. Son has ADHD and autisms, Family h/o bipolar d/o. CV disease: h/o ; HTN HLD Clotting or hematology d/o: easily bruises, h/o anemia Endocrine or metabolic d/o: hyperthyroidism, PCOD, pre-Diabetes History of seizure, syncope, or drop attacks: has h/o syncope w/ severe migarine attacks GI d/o: IBS- more diarrhea prominent, sometimes Constipation. h/o gastric sleeve sx. 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 Lifestyle considerations: Sleep routine: Usual bedtime: 9pm-12am and wake-up time: 7-7:30am. Sleep difficulties: Endorses: VLAD. Has had a CPAP for past few yrs. Has difficulty using it d/t restless sleep. W/o CPAP has snoring. Excessive daytime sleepiness, Fatigue. Restless sleep, Restless legs- urge to move legs, has to rock herself to fall asleep, occasional Leg Cramps, Bruxism. Tried ropinirole- not helpful and not tolerated. Caffeine use: occasional Substance use: Marijuana- 3-4 x's per day for anxiety/pain Exercise:?3-5 x's per week, cardio and wt training, pilates/yoga stretching. sees an registered dietitian and chiropractor q 3 weeks. 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 Family planning: not now Headache questionnaire:? Previous work-up: Head CT, 2020, normal Typical headache characteristics: Prodrome symptoms: food cravings- cheese or chocolate Aura: Intense feeling of silence, ringing in the ear, sees 3 little black dots, sometimes she waves of squiggles. Comes and goes throughout the migraines. Pain intensity: moderate-severe Location, quality, characteristics: Usually starts in right eye/eyebrow, occasionally can be left sided, and moves up into frontal region. Usually states unilateral, but can become holocranial and move into her neck. Associated symptoms: photophobia, phonophobia, allodynia, spinning dizziness, not right in space dizziness, lightheadedness, rarely syncope- last episode was yrs ago, fatigue, activity intolerance,cognitive difficulties- talks slower, slurs some. lifting heavy items can exacerbate headache. Postdrome: residual feeling like head is airy or something needs to pop. Triggers: stress Time of day: No specific time of day Duration and Frequency: all day, can on and off last 1-2 days, but up to 7 days. In the past month, has had 8 headache days. How does headache impact your life? tries to push through her headache Current acute medication use/interventions: Tylenol Current preventative medication use: on Venlafaxine for mood. note- pt previously stopped many meds d/t prone to overtake meds Non-pharmacological interventions: ice, rest, fluids. [facility] Medical History (Updated 01/26/24 @ 08:21 by MEGAN Miles) Chronic low back pain Erythema intertrigo Pain in both feet PCOS (polycystic ovarian syndrome) Psoriasis Cervicalgia Bulging of thoracic intervertebral disc Obstructive sleep apnea Anxiety and depression Fibromyalgia Subclinical hyperthyroidism Fibromyalgia Obesity (BMI 30-39.9) Multinodular goiter Polyarthralgia Restless legs syndrome Elevated C-reactive protein (CRP) Vitamin D deficiency Shellfish allergy Surgical History H/O gastric sleeve Family History Father Bipolar disorder Hypercholesterolemia HTN (hypertension) Depression Obesity Substance use disorder Mental health disorder Congestive heart failure Sleep apnea Atrial fibrillation Mother HTN (hypertension) Anxiety Sister Obesity Depression Anxiety Son Autism Social History Housing: House Alcohol intake: current Alcohol intake frequency: holidays/special occasions only Patient Tobacco Use Status: Never used Tobacco e-Cigarette/Vaping Use: Never Used Substance Use Type: Marijuana service: No Current occupational status: other 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 Cognitive needs: No Hearing needs: No Vision needs: Yes Physical Exam Vital Signs: BMI result Body Mass Index 36.5 Const General: cooperative and no acute distress Orientation/consciousness: patient oriented x3 Resp Effort & Inspection: normal respiratory effort and able to speak in complete sentences Neuro Other: Limited cervical ROM- elicits BUE arm discomfort General: patient oriented x3 Cognition (Neuro): normal cognition Psych Appearance: grossly normal Mental Status: mental status grossly normal Speech and movement: Normal speech and movement present Affect: normal affect Attitude: cooperative Telehealth Telehealth Telehealth Platform: OOTU Location of provider rendering services: practice address Location of patient: address on file Patient Identification confirmed using: Name, : Yes Telehealth method: video Patient verbally consented to treatment: Yes Patient verbally consented to billing insurance company: Yes Patient informed of any privacy concerns related to visit: Yes Minutes spent on Phone/Video with Pt.: 28 Assessment & Plan Assessment & Plan (1) Difficulty sleeping: Code(s): G47.9 - Sleep disorder, unspecified Category: Medical (2) Restless legs syndrome: Code(s): G25.81 - Restless legs syndrome Category: Medical (3) Fatigue: Code(s): R53.83 - Other fatigue Category: Medical (4) Snoring: Code(s): R06.83 - Snoring Category: Medical (5) Migraine with aura: Code(s): G43.109 - Migraine with aura, not intractable, without status migrainosus Category: Medical (6) Obstructive sleep apnea: Comment: ff'd by Dr Lopez Code(s): G47.33 - Obstructive sleep apnea (adult) (pediatric) Category: Medical (7) Cervicalgia: Code(s): M54.2 - Cervicalgia Category: Medical Plan For sleep: Reviewed HST- inconclusive, thus pt advsied to undergo in-lab PSG to furtehr assess bretahing, apnea, nocturnal hypoxemia, and for PLMS/ For cervicalgia w/ BUE radicular s/s: Continuie PT BUE EMG/NCS Future considerations- c-spine MRI. RLS: Alpha-Lipoic acid 600mg qd Recent TSH- NL. B-12- low normal. Again check labs for common etiologies of RLS in setting of h/o anemia. Treatment contraindications- all dopamine agonists d/t compulsive/additive personality traits. For overall headache management: * Optimize good self-care, including but not limited to maintaining a healthy diet, adequate fluid intake, adequate sleep, and engaging in regular physical activity. * Track headaches, especially after any treatment regimen changes. Migraine [employer] / [employer] is one of many headache tracking apps. * Information shared on non-pharmacological interventions which may help to alleviate headache attack burden. For acute headache treatment: Discussed importance of taking acute medications at the first sign of headache, however stressed importance of avoiding acute medication overuse (especially with combined headache medications). Again trial Nurtec ODT 75mg qd prn. May take w/ Tylenol.- likely will need new PA. Potential adverse effects of gepants, including but not limited to fatigue, nausea, dry mouth, constipation. Previous acute migraine medication trials: Sumatriptan- felt weird and sick. Naratriptan- ineffective. Fioricet- effect unknown- however pt states potential to overuse meds. Acute migraine medication contraindications: None at this time For headache prevention medication: Preventative medications should be taken routinely as prescribed for best effect, it may take several weeks for full effect to take effect. Resume Riboflavin 400mg qam Contiunue Magnesium 400mg qhs Previous migraine prevention medication trials: Nortriptyline- did not tolerate, N/V. Topiramate- not tolerated, altered taste. Believes she tried a BP tx for migraine- not sure which. Migraine prevention medication contraindications: [None at this time] Will follow-up upon review of above and patient to follow-up in clinic in 6 months or sooner prn. Orders: Orders RT PSG in-lab sleep study Today G25.81 - Restless legs syndrome, G47.9 - Sleep disorder, unspecified, R06.83 - Snoring, R53.83 - Other fatigue Complete Blood Count Auto Diff Today D64.9 - Anemia, unspecified, R53.83 - Other fatigue Comprehensive Met. Panel Today D64.9 - Anemia, unspecified, R53.83 - Other fatigue NE nerve conduction velocity Today R20.0 - Anesthesia of skin, R20.2 - Paresthesia of skin Vitamin B12 and Folate Today D64.9 - Anemia, unspecified NE electromyogram (EMG) Today R20.0 - Anesthesia of skin, R20.2 - Paresthesia of skin Medications: Refilled alpha lipoic acid 600 mg PO DAILY 30 days 30 caps 6RF G25.81 - Restless legs syndrome rimegepant ([place] ODT) 75 mg PO ONCE 30 days PRN 16 tabs 6RF migraine headache MDD 1 tab G43.109 - Migraine with aura, not intractable, without status migrainosus riboflavin (vitamin B2) 400 mg PO DAILY 30 days 30 tabs 6RF G43.109 - Migraine with aura, not intractable, without status migrainosus magnesium oxide may hold for loose stools 400 mg PO BEDTIME 30 days 30 tabs 6RF G43.109 - Migraine with aura, not intractable, without status migrainosus Coding Level of Care Code Tele Est Pt Level 4 (99626) Diagnoses Difficulty sleeping G47.9 Restless legs syndrome G25.81 Fatigue R53.83 Snoring R06.83 Migraine with aura G43.109 Obstructive sleep apnea G47.33 Cervicalgia M54.2
== END 2024-01-26 08:49 | disposition home or self-care (01) ==
PROVIDERS: PCP Internal Medicine; Visit Provider Nurse Practitioner Family
DX: G47.9 Sleep disorder, unspecified (principal); G25.81 Restless legs syndrome; R53.83 Other fatigue; R06.83 Snoring; G43.109 Migraine with aura, not intractable, without status migrainosus; G47.33 Obstructive sleep apnea (adult) (pediatric); M54.2 Cervicalgia
CPT/HCPCS: 99214

== ENCOUNTER 2024-01-31 13:43 | Outpatient (AMB) | payer MEDICARE, MEDICAID, SELFPAY ==
--- NOTE | 2024-01-31 14:28 | MHC.PC.OV ---
Vital Signs 01/31/24 14:31 Height 6 ft 3 in Weight 296 lb BMI 37.0 BP 110/70 Blood Pressure Location Rt brachial Position Sitting Pulse 66 Pulse Source Pulse Oximeter Pulse Oximetry (%) 98 Oxygen Delivery Method Room Air Intake Visit Reasons: Office visit Intake Note: Pt is here today for office visit Allergies apple Allergy (Unknown, Verified 02/04/24 01:58 EST) Anaphylaxis shellfish derived Allergy (Unknown, Verified 02/04/24 01:58 EST) Anaphylaxis dexamethasone Adverse Reaction (Intermediate, Verified 02/04/24 01:58 EST) nausea, dizziness, migraine Medication List - Last Reconciled 01/31/24 by Anahi Kurtz MD acetaminophen ER (Tylenol 8 Hour) 650 mg PO Q12H alpha lipoic acid 600 mg PO DAILY 30 days apremilast (Otezla) 30 mg PO BID betamethasone, augmented 0.05 % topical calcipotriene 0.005% topical BID clotrimazole-betamethasone 1-0.05 % 1 appl topical BID PRN 10 days lactobacillus combination no.4 (Probiotic) 3,000 mmu cells PO DAILY magnesium oxide 400 mg PO BEDTIME 30 days [MULTIVITAMIN PO] riboflavin (vitamin B2) 400 mg PO DAILY 30 days rimegepant (Nurtec ODT) 75 mg PO ONCE PRN 30 days MDD 1 tab Tobacco use date assessed: 01/31/24 Dental Screening Dental Screen Date: 01/31/24 Did you have a dental visit in the last 12 months?: Yes Did you have a dental problem in the last 6 months where you did not have access to dental care?: No Was dental information given to patient?: Patient has dentist HPI Office visit HPI Details 33 year old lady with a PMHx of VLAD not on CPAP, prior bariatric surgery\, multilevel DDD in spine , Fibromyalgia, androgenic pattern alopecia. evaluated for PCOS, - Labs were all WNL, including her overnight 1 mg DSST, Midnight salivary cortisol was WNL here today for a follow up and would like to try Wegovy for weight loss . Has gained weight after having gastric sleeve sx in 2014 , unable to lose despite following a healthy diet , unable to exercise much due to multilevel ddd in spine and polyarthralgia . Hcupuncture appointment already for 02/21/2024. Complaining of chronic neck pain with occasional numbness and tingling going down both arms patient has tried conservative measures with heat, NSAIDs, and has not had any relief with at least 6 sessions of physical therapy. Has also been complaining of pain in patient numbness in plantar aspect of both feet with walking. Temporary relief afforded with taking NSAIDs and applying ice to affected area. She has a history of subclinical hyperthyroidism, seen and evaluated by Dr. Rendon and then by Dr. Blanco, with TSH slightly below the lower limit of normal. All antibodies were assessed and were WNL. She had thyroid uptake and scan, which revealed a small focus of increased activity inferior to the thyroid gland, but was otherwise WNL. Her thyroid US revealed multiple cystic nodules, but otherwise appeared WNL. [facility] Medical History (Updated 02/04/24 @ 02:36 by Anahi Kurtz MD) Chronic low back pain Erythema intertrigo Pain in both feet PCOS (polycystic ovarian syndrome) Psoriasis Cervicalgia Bulging of thoracic intervertebral disc Obstructive sleep apnea Anxiety and depression Fibromyalgia Subclinical hyperthyroidism Obesity (BMI 30-39.9) Multinodular goiter Polyarthralgia Restless legs syndrome Vitamin D deficiency Shellfish allergy Surgical History H/O gastric sleeve Family History Father Bipolar disorder Hypercholesterolemia HTN (hypertension) Depression Obesity Substance use disorder Mental health disorder Congestive heart failure Sleep apnea Atrial fibrillation Mother HTN (hypertension) Anxiety Sister Obesity Depression Anxiety Son Autism Social History Housing: House Alcohol intake: current Alcohol intake frequency: holidays/special occasions only Patient Tobacco Use Status: Never used Tobacco e-Cigarette/Vaping Use: Never Used Substance Use Type: Marijuana service: No Current occupational status: other 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 Cognitive needs: No Hearing needs: No Vision needs: Yes Questionnaire Thrive Questionnaire Date Thrive assessed: 12/06/23 I am a: Patient What is your living situation today?: I have a steady place to live Within the past 12 months, did the food you bought not last and you didn't have the money to get more?: Sometimes True Within the past 12 months, did you worry whether your food would run out before you got money to buy more?: Sometimes True Do you have trouble paying for medicines?: Yes Do you have trouble getting transportation to medical appointments?: No Do you have trouble paying your heating and electricity bill?: Yes Do you have trouble taking care of your child, family member or friend?: I choose not to answer this question Do you have trouble with day-to-day activities such as bathing, preparing meals, shopping, managing finances, etc.?: Yes Are you currently unemployed and looking for a job?: I choose not to answer this question Are you interested in more education?: No THRIVE Score: 3 REY-7 AMB Questionnaire REY-7 Date REY - 7 assessed: 09/07/23 Source: Developed by Drs. Terence Ceja, Adriane Corey, Ganesh Dumas and colleagues, with an educational fan from [employer]. Review of Systems Const Denies headache(s) ENT Denies change in voice, Denies dysphagia, Denies headache(s) and Denies hoarseness Card Denies chest pain, Denies irregular heart rhythm and Denies dyspnea Resp Denies cough and Denies dyspnea GI Denies abdominal pain, Denies change in bowel habits and Denies dysphagia Reports no additional complaints Musc Reports as per HPI and Denies abnormal gait Neuro Reports as per HPI, Denies abnormal gait, Denies headache(s), Denies focal weakness and Reports paresthesias Endo Reports no additional complaints Higinio/Lymph Reports no additional complaints Physical exam (Primary Care) Vital Signs: Last Vital Signs Pulse 66 01/31/24 14:31 BP 110/70 01/31/24 14:31 Pulse Ox 98 01/31/24 14:31 Oxygen Delivery Method Room Air 01/31/24 14:31 BMI result Body Mass Index 37.0 Tobacco/Smoking Status: Tobacco use Status Tobacco use date assessed 01/31/24 01/31/24 14:38 Patient Tobacco Use Status Never used Tobacco 01/31/24 14:30 e-Cigarette/Vaping Use Never Used 01/31/24 14:30 Thrive Assessment: Date of Thrive Assessment Date Thrive assessed 12/06/23 01/31/24 14:30 Const General: cooperative and no acute distress Nutritional Appearance: obese HENMT Head: Yes normal to inspection and Yes normocephalic General nose exam: Normal external nose present Neck Neck: Yes normal visual inspection, Yes full ROM and Yes no lymphadenopathy Resp Auscultation: clear to auscultation bilaterally Cardio Rate: regular rate Rhythm: regular rhythm Heart sounds: S1 normal heart sound present and S2 normal heart sound present GI Inspection: Yes normal to inspection Auscultation: normal bowel sounds Neuro Cognition (Neuro): normal cognition Gait exam (Neuro): Normal gait present Motor exam (neuro): 5/5 motor strength present throughout Deep tendon reflexes (DTR's): Right patellar reflex intensity grade: 1+ and Left patellar reflex intensity grade: 1+ Extrem General: Yes normal to inspection Psych Thought process: Normal thought process present Thought content: Normal thought content present Coding Level of Care Code Est Pt Level 4 (52740) Diagnoses Obesity (BMI 30-39.9) E66.9 Pain in both feet M79.671; M79.672 Cervicalgia M54.2 Numbness and tingling of both upper extremities R20.0; R20.2 Assessment & Plan Assessment & Plan (1) Obesity (BMI 30-39.9): Comment: BMI on 02/2023 at 41.1, on 04/2023 at 39.4, on 08/2023 at 38.8, 11/2023 at 37.7 (11/2023). Had sleeve gastrectomy in 2014. Code(s): E66.9 - Obesity, unspecified Category: Medical Plan: Has tried surgery, diet, but unable to exercise much to help lose weight. Prescription sent for wegovy 0.25 mg injected subcutaneously once a week. New with diet and exercise, discussed possible side effects of medication. Advised to take a bland diet on the day she gives herself her shot. Will see her back for follow-up 4 weeks after starting the medication (2) Pain in both feet: Comment: Will refer to Podiatry. Patient been educated utilize proper footwear. Code(s): M79.671 - Pain in right foot; M79.672 - Pain in left foot Category: Medical Plan: Referred to podiatry for further evaluation (3) Cervicalgia: Code(s): M54.2 - Cervicalgia Category: Medical Plan: MRI cervical spine without contrast ordered (4) Numbness and tingling of both upper extremities: Comment: R > L Code(s): R20.0 - Anesthesia of skin; R20.2 - Paresthesia of skin Category: Medical Plan: MRI cervical spine without contrast ordered Orders: Orders MR cervical spine wo con 02/02/24 M47.812 - Spondylosis without myelopathy or radiculopathy, cervical region Referrals Podiatry Referral M79.671 - Pain in right foot, M79.672 - Pain in left foot Medications: Winston Brown (semaglutide (weight loss)) administer weeks 1 through 4 of therapy 0.25 mg (0.5 mL) subcut QWEEK 2 mL 0RF NS E66.9 - Obesity, unspecified
[2024-01-31 14:31] VITALS: BP 110/70; PULSE 66; O2SAT 98; BMI 37.0
== END 2024-01-31 15:28 | disposition home or self-care (01) ==
LOC: HO.HMCC 13:44
PROVIDERS: PCP Internal Medicine; Visit Provider Internal Medicine
DX: M79.671 Pain in right foot (principal); M79.672 Pain in left foot; E66.9 Obesity, unspecified; Z68.37 Body mass index [BMI] 37.0-37.9, adult; M54.2 Cervicalgia; R20.0 Anesthesia of skin; R20.2 Paresthesia of skin

== ENCOUNTER → 2024-01-31 13:43 | Outpatient (BNVA) | payer MEDICARE, MEDICAID, SELFPAY | PROVIDERS: PCP Internal Medicine; Visit Provider Internal Medicine | DX: E66.9 Obesity, unspecified (principal); M79.671 Pain in right foot; M79.672 Pain in left foot; M54.2 Cervicalgia; R20.0 Anesthesia of skin; R20.2 Paresthesia of skin | CPT/HCPCS: 99212 ==

== ENCOUNTER 2024-02-02 08:10 | Outpatient (REF) | payer MEDICARE, MEDICAID, SELFPAY ==
--- NOTE | ~2024-02-02 | MR_ITS ---
EXAMINATION: MR CERVICAL SPINE WITHOUT CONTRAST CLINICAL INFORMATION: Neck pain, not relieved by conservative treatment including nonsteroidal anti-inflammatory drugs and 6 sessions of physical therapy COMPARISON: Cervical spine x-ray on 09/13/2023 TECHNIQUE: MRI of the cervical spine was obtained using routine sequences without contrast. FINDINGS: The visualized cervical vertebrae are intact with normal alignment. No focal bone lesion with abnormal signal can be seen. Evaluation of the intervertebral discs show: C2/C3: Intervertebral disc height is normal, with normal T2 signal. No focal disc herniation is seen. Bilateral C2-C3 neural foramina are patent. Bilateral apophyseal joints are intact with normal alignment. C3/C4: Intervertebral disc height is normal, with normal T2 signal. Mild right posterior lateral osteophyte disc complex protrusion is seen. There is resulting mild asymmetric right C3-C4 neural foraminal stenosis. Bilateral apophyseal joints are intact with normal alignment. C4/C5: Intervertebral disc height is normal, with normal T2 signal. Mild right posterior lateral osteophyte disc complex protrusion is seen. There is resulting mild asymmetric right C4-C5 neural foraminal stenosis. Bilateral apophyseal joints are intact with normal alignment. C5/C6: Intervertebral disc height is normal, with normal T2 signal. No focal disc herniation is seen. Bilateral C5-C6 neural foramina are patent. Bilateral apophyseal joints are intact with normal alignment. C6/C7: Intervertebral disc height is normal, with normal T2 signal. No focal disc herniation is seen. Bilateral C6-C7 neural foramina are patent. Bilateral apophyseal joints are intact with normal alignment. C7/T1: Intervertebral disc height is normal, with normal T2 signal. No focal disc herniation is seen. Bilateral C7-T1 neural foramina are patent. Bilateral apophyseal joints are intact with normal alignment. Cervical spinal cord is normal in position and signal. MR/MR cervical spine wo con IMPRESSION: 1. Mild right posterior lateral osteophyte disc complex protrusions at C3-C4 and C4-C5 with resulting mild asymmetric right C3-C4 and C4-C5 neural foraminal stenosis. 2. No evidence of cervical spinal cord compression or spinal cord signal abnormality. Electronically signed by: Edgar Maciel MD 02/02/2024 12:10 PM EDT
== END 2024-02-02 08:11 | disposition home or self-care (01) ==
LOC: HO.MRI 08:10
PROVIDERS: PCP Internal Medicine; Visit Provider Internal Medicine
DX: M47.812 Spondylosis without myelopathy or radiculopathy, cervical region (principal)
CPT/HCPCS: 72141

== ENCOUNTER 2024-02-07 08:30 | Outpatient (REF) | payer MEDICARE, MEDICAID, SELFPAY ==
[2024-02-07 11:10] LABS: MANUAL DIFF FLAG NO
[2024-02-07 11:49] LABS: Basophils Percent Auto 0.2 % (0-2); Eosinophils Absolute Auto 0.1 X10*3/uL (0.0-0.4); Eosinophils Percent Auto 1.1 % (0-4); Hematocrit 41.4 % (37.0-47.0); Hemoglobin 14.3 g/dl (12.0-16.0); Imm Gran Abs Auto 0.01 X10*3/uL (0.00-0.03); Imm Gran Pct Auto 0.2 % (0.0-0.4); Lymphocytes Absolute Auto 2.2 X10*3/uL (1.2-4.9); Lymphocytes Percent Auto 37.9 % (20-40); Mean Corpuscular HGB Conc 34.5 g/dl (31.0-35.0); Mean Corpuscular Hemoglobin 31.8 pg (27.0-33.0); Mean Corpuscular Volume 92.2 fL (80.0-98.0); Mean Platelet Volume 8.7 fL (9.4-12.3); Monocytes Absolute Auto 0.4 X10*3/uL (0.1-1.2); Monocytes Percent Auto 6.2 % (2-11); Neutrophils Absolute Auto 3.1 x10*3/uL (2.0-8.3); Neutrophils Percent Auto 54.4 % (45-73); Platelet Count 293 X10*3/uL (160-400); Red Blood Count 4.49 X10*6/uL (4.20-5.50); Red Cell Distribution Width 12.4 % (11.0-16.0); White Blood Count 5.7 X10*3/uL (4.8-10.8)
[2024-02-07 12:20] LABS: Appearance Urine Clear; Color Urine Dark Yellow; Glucose Urine UA Negative (Negative); Leukocyte Esterase Urine Negative (Negative); Nitrite Urine Negative (Negative); PH 7.5 (5.0-9.0); Specific Gravity - Urine 1.015 (1.005-1.025); Urine Blood Negative (Negative); Urine Ketones Negative (Negative); Urine Protein Negative (Neg-Trace)
[2024-02-07 12:35] LABS: Alanine Aminotransferase 24 U/L (0-31); Albumin Level 4.5 g/dL (3.5-5.0); Alkaline Phosphatase 58 U/L (39-117); Anion Gap 10 (12-20); Aspartate Amino Transferase 21 U/L (5-31); Blood Urea Nitrogen 10 mg/dL (9-16); Calcium 9.3 mg/dL (8.4-10.2); Carbon Dioxide 26 mmol/L (22-29); Chloride 108 mmol/L (96-108); Estimated Glomerular Filt Rate > 60; Glucose Random 94 mg/dL (60-115); Iron 129 mcg/dL (30-160); Percent Iron Saturation 38 % (15-50); Potassium 3.8 mmol/L (3.3-5.1); Sodium 140 mmol/L (135-145); Total Iron Binding Capacity 336 mcg/dL (228-428); Total Protein 7.4 g/dL (6.5-8.0); Unsaturated Iron Binding 207 ug/dL
[2024-02-07 12:44] LABS: Ferritin 58 ng/mL (10-122)
[2024-02-07 12:58] LABS: Folate 16.1 ng/mL (> or = 4.0); Vitamin B12 368 pg/mL (200-900)
[2024-02-08 16:37] LABS: Homocysteine 9.1 umol/L (<10.4)
[2024-02-10 19:13] LABS: Methylmalonic Acid 55 nmol/L (55-335)
== END 2024-02-07 08:31 | disposition home or self-care (01) ==
LOC: HO.HMGCLDS 08:30
PROVIDERS: Nurse Practitioner Primary Care; PCP Internal Medicine; Visit Provider Nurse Practitioner Family
DX: Z00.01 Encounter for general adult medical examination with abnormal findings (principal); G25.81 Restless legs syndrome; D64.9 Anemia, unspecified; R53.83 Other fatigue; Z13.89 Encounter for screening for other disorder
CPT/HCPCS: 36415; 80053; 81003; 82607; 82728; 82746; 83090; 83540; 83921; 85025

== ENCOUNTER → 2024-02-08 20:30 | Outpatient (REF) | payer MEDICARE, MEDICAID, SELFPAY | LOC: HO.SL 20:30 | PROVIDERS: PCP Internal Medicine; Visit Provider Nurse Practitioner Family | DX: G47.9 Sleep disorder, unspecified (principal); R06.83 Snoring; G25.81 Restless legs syndrome; R53.83 Other fatigue | CPT/HCPCS: 95810 ==

== ENCOUNTER → 2024-02-08 21:12 | Outpatient (BNV) | payer MEDICARE, MEDICAID, SELFPAY | PROVIDERS: PCP Internal Medicine; Visit Provider Psychiatry & Neurology Neurology | DX: R06.83 Snoring (principal) | CPT/HCPCS: 95810 ==

== ENCOUNTER 2024-02-22 08:28 | Outpatient (AMB) | payer MEDICARE, MEDICAID, SELFPAY ==
--- NOTE | 2024-02-22 08:32 | MHC.OFFVIS ---
Vital Signs 02/22/24 08:42 Height 6 ft 3 in Weight 293 lb BMI 36.6 BP 155/72 H Blood Pressure Location Rt brachial Position Sitting Pulse 72 Pulse Source Pulse Oximeter Pulse Oximetry (%) 98 Oxygen Delivery Method Room Air Intake Visit Reasons: Cervicalgia Intake Note: Pain today 10/10 Quality Analyst/Technical Writer Required: No Accompanied by: Self / Same As Patient Allergies apple Allergy (Unknown, Verified 02/22/24 08:44) Anaphylaxis shellfish derived Allergy (Unknown, Verified 02/22/24 08:44) Anaphylaxis dexamethasone Adverse Reaction (Intermediate, Verified 02/22/24 08:44) nausea, dizziness, migraine HPI Comments Details: Ashia is very pleasant 33 years old female who presents in my office with complains on pain in the multiple parts of the body including pain in the neck with radiation into the right upper extremity as well as pain in the back pain in the pelvis pain in the right lower extremity. She reported this pain started 5-10 years ago. She relates her pain to sports, trauma, participation in the large projects. She reports that she can not sleep normally can not do activities of daily living she can take care of herself but she can not function normally. 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 In terms of tissue damage he reports her pain as pulsing, throbbing, pounding, shooting, stabbing, sharp, pinching, cramping, tugging, pulling, hot burning, tingling, dull, hurting, heavy, tiring, exhausting, spreading, radiating, piercing, tight, squeezing, tearing. She had an MRI of the cervical spine results of which dictated as below. She is actually scheduled for EMG at unknown facility, apparently it is in [facility] so it could be either [facility] or Dr. Valera/Dr. Casper neurology office. She had physical therapy which worsened her pain. She had 6 sessions. She had chiropractic manipulations which helps her pain initially but now she does not feel any pain improvement. She also got engaged with acupuncture, she reports that acupuncture does not help now but in the past she had some pain relief. She has engage in counseling therapy for depression in private sessions. 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 She has surgical gastric sleeve procedure in 2015. She decrease her weight from 3752 to 93 at this moment. She denies smoking tobacco she admits occasional drinking of alcohol she drinks soda and caffeinated beverages she also smokes cannabis portions a day. She reports that she is addicted to multiple medications. She is interested in injections. [facility] Medical History (Updated 02/22/24 @ 09:05 by Feliberto Bonds MD) DDD (degenerative disc disease), cervical Chronic low back pain Erythema intertrigo Pain in both feet PCOS (polycystic ovarian syndrome) Psoriasis Cervicalgia Bulging of thoracic intervertebral disc Obstructive sleep apnea Anxiety and depression Fibromyalgia Subclinical hyperthyroidism Obesity (BMI 30-39.9) Multinodular goiter Polyarthralgia Restless legs syndrome Vitamin D deficiency Shellfish allergy Surgical History H/O gastric sleeve Family History Father Bipolar disorder Hypercholesterolemia HTN (hypertension) Depression Obesity Substance use disorder Mental health disorder Congestive heart failure Sleep apnea Atrial fibrillation Mother HTN (hypertension) Anxiety Sister Obesity Depression Anxiety Son Autism Social History Housing: House Alcohol intake: current Alcohol intake frequency: holidays/special occasions only Patient Tobacco Use Status: Never used Tobacco e-Cigarette/Vaping Use: Never Used Substance Use Type: Marijuana service: No Current occupational status: other 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 Cognitive needs: No Hearing needs: No Vision needs: Yes Review of Systems ENT Reports Normal hearing present Card Reports no additional complaints Resp Reports no additional complaints GI Reports no additional complaints Reports no additional complaints Musc Reports as per HPI Neuro Reports as per HPI, Reports Normal hearing present, Denies Abnormal speech present, Denies confusion and Denies Sensory deficit (Neuro) Psych Reports as per HPI and Denies confusion Endo Reports as per HPI Physical Exam Const General: no acute distress; No confusion Nutritional Appearance: obese morbidly obese Orientation/consciousness: patient oriented x3 and No confusion Eyes General: appearance normal, both eyes and all related structures Pupils: Equal, round and reactive pupils present EOM: EOMs intact bilaterally Neck Other: Limited range of motion cervical spine. Positive Spurling test on the right. Negative Lhermitte test. Chest Chest palpation & inspection: normal inspection of the chest Resp Effort & Inspection: normal respiratory effort, able to speak in complete sentences, normal respiratory pattern, no audible wheezes and no cough Cardio Jugular venous distension: no JVD GI Inspection: Yes normal to inspection Neuro General: patient oriented x3, gait normal and No confusion Cranial nerves: Yes CN's II-XII intact bilaterally, Yes Equal, round and reactive pupils present, Yes Normal hearing present and Yes Ability to bilaterally elevate shoulders present Speech: No Abnormal speech present Gait exam (Neuro): Normal gait present Motor exam (neuro): 5/5 motor strength present throughout Sensory Exam: No Sensory deficit (Neuro) Extrem General: No pedal edema Psych Speech and movement: Normal speech and movement present Affect: normal affect Attitude: cooperative Thought process: Normal thought process present Thought content: Normal thought content present Insight: Good insight present (Psych) Judgement: Good judgement present (Psych) Results Reviewed Results Reviewed: MR CERVICAL SPINE WITHOUT CONTRAST 02/02/2024 CLINICAL INFORMATION: Neck pain, not relieved by conservative treatment including nonsteroidal anti-inflammatory drugs and 6 sessions of physical therapy COMPARISON: Cervical spine x-ray on 09/13/2023 TECHNIQUE: MRI of the cervical spine was obtained using routine sequences without contrast. FINDINGS: The visualized cervical vertebrae are intact with normal alignment. No focal bone lesion with abnormal signal can be seen. Evaluation of the intervertebral discs show: C2/C3: Intervertebral disc height is normal, with normal T2 signal. No focal disc herniation is seen. Bilateral C2-C3 neural foramina are patent. Bilateral apophyseal joints are intact with normal alignment. C3/C4: Intervertebral disc height is normal, with normal T2 signal. Mild right posterior lateral osteophyte disc complex protrusion is seen. There is resulting mild asymmetric right C3-C4 neural foraminal stenosis. Bilateral apophyseal joints are intact with normal alignment. C4/C5: Intervertebral disc height is normal, with normal T2 signal. Mild right posterior lateral osteophyte disc complex protrusion is seen. There is resulting mild asymmetric right C4-C5 neural foraminal stenosis. Bilateral apophyseal joints are intact with normal alignment. C5/C6: Intervertebral disc height is normal, with normal T2 signal. No focal disc herniation is seen. Bilateral C5-C6 neural foramina are patent. Bilateral apophyseal joints are intact with normal alignment. C6/C7: Intervertebral disc height is normal, with normal T2 signal. No focal disc herniation is seen. Bilateral C6-C7 neural foramina are patent. Bilateral apophyseal joints are intact with normal alignment. C7/T1: Intervertebral disc height is normal, with normal T2 signal. No focal disc herniation is seen. Bilateral C7-T1 neural foramina are patent. Bilateral apophyseal joints are intact with normal alignment. Cervical spinal cord is normal in position and signal. MR/MR cervical spine wo con IMPRESSION: 1. Mild right posterior lateral osteophyte disc complex protrusions at C3-C4 and C4-C5 with resulting mild asymmetric right C3-C4 and C4-C5 neural foraminal stenosis. 2. No evidence of cervical spinal cord compression or spinal cord signal abnormality. Assessment & Plan Assessment & Plan (1) Cervicalgia: Code(s): M54.2 - Cervicalgia Category: Medical (2) Radiculopathy, cervical: Code(s): M54.12 - Radiculopathy, cervical region Category: Medical (3) Spondylosis of cervical region without myelopathy or radiculopathy: Code(s): M47.812 - Spondylosis without myelopathy or radiculopathy, cervical region Category: Medical Plan This patient is very interested in injections. She reports that she is addicted to multiple medications including gabapentin and Lyrica. Therefore those medications will be contraindicated for her. Fibromyalgia would be most obvious diagnosis for this patient, however antidepressants like SSRI SNRI calcium channel blockers like gabapentin or Lyrica were tried on her and all of them had adverse effect of addiction or increased depression. The MRI of this patient is rather innocent with no indication of arthritis and several areas of the mild foraminal stenosis dictated as above. The diagnostic process needs to be performed for this patient. I offered this patient diagnostic medial branch block C3- C4-C5- C6 on the right to test how much involvement of the arthritis on the cervical spine is related to the patient's pain. She is also scheduled for EMG. She will give us medical information release note and she will provide information to were to send the request about EMG. I will see her sometime in April after cervical medial branch block and we will continue to discuss issues of treatment of this patient further. Patient Instructions: I here by testify that I spent 45 minutes in conversation with this patient as well as evaluating her prior records, evaluating her prior diagnostic studies, planning her care and organizing this note. Coding Level of Care Code New Pt Level 4 (69605) Diagnoses Cervicalgia M54.2 Radiculopathy, cervical M54.12 Spondylosis of cervical region without myelopathy or radiculopathy M47.812
[2024-02-22 08:42] VITALS: BP 155/72; PULSE 72; O2SAT 98; BMI 36.6
== END 2024-02-22 08:57 | disposition home or self-care (01) ==
PROVIDERS: PCP Internal Medicine; Visit Provider Anesthesiology
DX: M54.2 Cervicalgia (principal); M54.12 Radiculopathy, cervical region; M47.812 Spondylosis without myelopathy or radiculopathy, cervical region
CPT/HCPCS: 99204

== ENCOUNTER → 2024-02-22 08:28 | Outpatient (BNVA) | payer MEDICARE, MEDICAID, SELFPAY | PROVIDERS: PCP Internal Medicine; Visit Provider Anesthesiology | DX: M47.22 Other spondylosis with radiculopathy, cervical region (principal) | CPT/HCPCS: 99202 ==

== ENCOUNTER 2024-03-13 12:44 | Outpatient (AMB) | payer MEDICARE, MEDICAID, SELFPAY ==
--- NOTE | 2024-03-13 12:56 | A.OFFPC_ITS ---
Vital Signs 03/13/24 12:57 Height 6 ft 3 in Weight 288 lb BMI 36.0 BP 122/72 Blood Pressure Location Lt brachial Position Sitting Pulse 76 Pulse Source Pulse Oximeter Pulse Oximetry (%) 98 Oxygen Delivery Method Room Air Intake Visit Reasons: 4 weeks follow up/[place] Intake Note: Pt is here today for her 4weeks f/u Allergies apple Allergy (Unknown, Verified 03/18/24 03:39) Anaphylaxis shellfish derived Allergy (Unknown, Verified 03/18/24 03:39) Anaphylaxis dexamethasone Adverse Reaction (Intermediate, Verified 03/18/24 03:39) nausea, dizziness, migraine Medication List - Last Reconciled 03/13/24 by Anahi Kurtz MD acetaminophen ER (Tylenol 8 Hour) 650 mg PO Q12H alpha lipoic acid 600 mg PO DAILY 30 days apremilast (Otezla) 30 mg PO BID betamethasone, augmented 0.05 % topical calcipotriene 0.005% topical BID cholecalciferol (vitamin D3) 25 mcg PO DAILY clotrimazole-betamethasone 1-0.05 % 1 appl topical BID PRN 10 days lactobacillus combination no.4 (Probiotic) 3,000 mmu cells PO DAILY magnesium oxide 400 mg PO BEDTIME 30 days [MULTIVITAMIN PO] phentermine 15 mg PO DAILY riboflavin (vitamin B2) 400 mg PO DAILY 30 days rimegepant (Nurtec ODT) 75 mg PO ONCE PRN 30 days MDD 1 tab Tobacco use date assessed: 01/31/24 Dental Screening Dental Screen Date: 01/31/24 HPI 4 weeks follow up/[place]eg[place] HPI Details - The patient is a 33-year-old female he re today for follow-up regarding weight loss after starting phentermine - She is currently on Phentermine 15 mg and reports some effect on reducing cravings overall but still struggles with sweet cravings. - Demonstrated a weight loss of 5 pounds over one month. - History of gastric sleeve surgery in 2 015, with ongoing multivitamin supplementation noted. - Presents with back pain related to her niation and osteophytes noted on MRI. - Reports feeling dismissed by pain [facility] doctor despite MRI findings of stenosis and protrusions. - Experiencing numbness and tingling in the hip and leg, no significant relief from physical therapy and chiropractor sessions. - Recommended for an EMG to evaluate fur ther. - Proposed medial branch block and nerve block injections pending EMG results. - Describes numbness and tingling in the arms and legs. - Recent lab indicates high vitamin B6 l evels, possibly from multivitamins taken. [facility] Medical History DDD (degenerative disc disease), cervical Chronic low back pain Erythema intertrigo Pain in both feet PCOS (polycystic ovarian syndrome) Psoriasis Cervicalgia Bulging of thoracic intervertebral disc Obstructive sleep apnea Anxiety and depression Fibromyalgia Subclinical hyperthyroidism Obesity (BMI 30-39.9) Multinodular goiter Polyarthralgia Restless legs syndrome Vitamin D deficiency Shellfish allergy Surgical History H/O gastric sleeve Family History Father Bipolar disorder Hypercholesterolemia HTN (hypertension) Depression Obesity Substance use disorder Mental health disorder Congestive heart failure Sleep apnea Atrial fibrillation Mother HTN (hypertension) Anxiety Sister Obesity Depression Anxiety Son Autism Social History Housing: House Alcohol intake: current Alcohol intake frequency: holidays/special occasions only Patient Tobacco Use Status: Never used Tobacco e-Cigarette/Vaping Use: Never Used Substance Use Type: Marijuana service: No Current occupational status: other 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 Cognitive needs: No Hearing needs: No Vision needs: Yes Questionnaire Thrive Questionnaire Date Thrive assessed: 12/06/23 I am a: Patient What is your living situation today?: I have a steady place to live Within the past 12 months, did the food you bought not last and you didn't have the money to get more?: Sometimes True Within the past 12 months, did you worry whether your food would run out before you got money to buy more?: Sometimes True Do you have trouble paying for medicines?: Yes Do you have trouble getting transportation to medical appointments?: No Do you have trouble paying your heating and electricity bill?: Yes Do you have trouble taking care of your child, family member or friend?: I choose not to answer this question Do you have trouble with day-to-day activities such as bathing, preparing meals, shopping, managing finances, etc.?: Yes Are you currently unemployed and looking for a job?: I choose not to answer this question Are you interested in more education?: No THRIVE Score: 3 REY-7 AMB Questionnaire REY-7 Date REY - 7 assessed: 09/07/23 Source: Developed by Drs. Terence Ceja, Adriane Corey, Ganesh trevino nd colleagues, with an educational fan from [employer]. Review of Systems Const Reports as per HPI ENT Reports no additional complaints Card Denies chest pain, Denies irregular heart rhythm and Denies dyspnea Resp Denies cough and Denies dyspnea GI Denies abdominal pain and Denies change in bowel habits Reports no additional complaints Musc Reports as per HPI Neuro Reports as per HPI, Denies focal weakness and Reports paresthesias Endo Reports no additional complaints Higinio/Lymph Reports no additional complaints Physical exam (Primary Care) Vital Signs: Last Vital Signs Pulse 76 03/13/24 12:57 BP 122/72 03/13/24 12:57 Pulse Ox 98 03/13/24 12:57 Oxygen Delivery Method Room Air 03/13/24 12:57 BMI result Body Mass Index 36.0 Tobacco/Smoking Status: Tobacco use Status Tobacco use date assessed 01/31/24 03/13/24 13:02 Patient Tobacco Use Status Never used Tobacco 03/13/24 13:02 e-Cigarette/Vaping Use Never Used 03/13/24 13:02 Thrive Assessment: Date of Thrive Assessment Date Thrive assessed 12/06/23 03/13/24 13:02 Const General: cooperative and no acute distress Nutritional Appearance: obese [facility] Head: Yes normocephalic General nose exam: Normal external nose present Neck Neck: Yes normal visual inspection, Yes full ROM and Yes no lymphadenopathy Resp Auscultation: clear to auscultation bilaterally Cardio Rate: regular rate Rhythm: regular rhythm Heart sounds: S1 normal heart sound present and S2 normal heart sound present GI Inspection: Yes normal to inspection Auscultation: normal bowel sounds Extrem General: Yes normal to inspection Psych Thought process: Normal thought process present Thought content: Normal thought content present Coding Level of Care Code Est Pt Level 3 (33903) Diagnoses Obesity (BMI 30-39.9) E66.9 Assessment & Plan Assessment & Plan (1) Obesity (BMI 30-39.9): Comment: BMI on 02/2023 at 41.1, on 04/2023 at 39.4, on 08/2023 at 38.8, 11/2023 at 37.7 (11/2023). Had sleeve gastrectomy in 2015. Code(s): E66.9 - Obesity, unspecified Category: Medical Plan: Will increase phentermine dose to 30 mg once a day, 2 hours after breakfast, combined this with a hearing to healthy eating habits and continue with regular exercise. Again discussed possible side effects of medication which might cause lightheadedness, chest pain, shortness of breath or headache. Return to the clinic to check weight in a month, and schedule physical exam for next year. Medications: Changed From phentermine must administer 2 hours after breakfast 15 mg PO DAILY 30 caps 0RF To phentermine must administer 2 hours after breakfast 30 mg PO DAILY 30 caps 1RF
[2024-03-13 12:57] VITALS: BP 122/72; PULSE 76; O2SAT 98; BMI 36.0
== END 2024-03-13 13:51 | disposition home or self-care (01) ==
PROVIDERS: PCP Internal Medicine; Visit Provider Internal Medicine
DX: E66.9 Obesity, unspecified (principal); Z68.36 Body mass index [BMI] 36.0-36.9, adult

== ENCOUNTER → 2024-03-13 12:44 | Outpatient (BNVA) | payer MEDICARE, MEDICAID, SELFPAY | PROVIDERS: PCP Internal Medicine; Visit Provider Internal Medicine | DX: E66.9 Obesity, unspecified (principal); Z79.899 Other long term (current) drug therapy | CPT/HCPCS: 99212 ==

== ENCOUNTER 2024-03-21 12:52 | Outpatient (REF) | payer MEDICARE, MEDICAID, SELFPAY ==
--- NOTE | 2024-03-21 12:55 | EMG_ITS ---
Chief complaint: Bilateral hand numbness Reason for referral: Evaluate for Carpal Tunnel Syndrome Referred by: Mariya Greenberg NP Procedure done: Bilateral upper extremities NCS/EMG Precautions and/or limitations: None The limb temperature was monitored continuously and remained between 32-36 degrees C during the performance of the NCS. Nerve Conduction Studies Anti Sensory Summary Table ?Stim Site NR Onset (ms) Norm Onset (ms) Peak (ms) Norm Peak (ms) O-P Amp (?V) Norm O-P Amp Site1 Site2 Delta-0 (ms) Dist (cm) Gold (m/s) Norm Gold (m/s) Left Median Anti Sensory (2nd Digit) Wrist ? 0.8 3.5 <3.6 55.5 >10 Wrist 2nd Digit 0.8 14.0 175 Right Median Anti Sensory (2nd Digit) Wrist ? 2.7 3.6 <3.6 41.5 >10 Wrist 2nd Digit 2.7 14.0 52 Right Radial Anti Sensory (Thumb) Forearm ? 1.5 2.2 <3.1 33.6 Forearm Thumb 1.5 0.0 Left Ulnar Anti Sensory (5th Digit) Wrist ? 0.7 3.6 <3.7 27.8 >15.0 Wrist 5th Digit 0.7 14.0 200 Right Ulnar Anti Sensory (5th Digit) Wrist ? 2.2 3.3 <3.7 41.8 >15.0 Wrist 5th Digit 2.2 14.0 64 Motor Summary Table ?Stim Site NR Onset (ms) Norm Onset (ms) O-P Amp (mV) Norm O-P Amp iAmp (mV) Amp (1st) (%) Site1 Site2 Delta-0 (ms) Dist (cm) Gold (m/s) Norm Gold (m/s) Left Median Motor (Abd Poll Brev) Wrist ? 3.7 <3.9 13.8 >4.5 18.3 100.0 Elbow Wrist 4.2 23.5 56 >45 Elbow ? 7.9 13.4 17.7 97.1 Right Median Motor (Abd Poll Brev) Wrist ? 3.5 <3.9 16.0 >4.5 21.2 100.0 Elbow Wrist 4.5 24.0 53 >45 Elbow ? 8.0 15.6 21.0 97.5 Left Ulnar Motor (Abd Dig Minimi) Wrist ? 2.9 <3.0 10.4 >5 11.8 100.0 B Elbow Wrist 4.0 23.0 58 >45 B Elbow ? 6.9 12.0 13.6 115.4 A Elbow B Elbow 1.6 10.0 63 >45 A Elbow ? 8.5 11.4 13.1 109.6 Right Ulnar Motor (Abd Dig Minimi) Wrist ? 3.0 <3.0 12.2 >5 14.3 100.0 B Elbow Wrist 4.1 23.0 56 >45 B Elbow ? 7.1 12.4 14.8 101.6 A Elbow B Elbow 1.3 10.0 77 >45 A Elbow ? 8.4 12.0 14.5 98.4 EMG ?Side Muscle Nerve Root Ins Act Fibs Psw Amp Dur Poly Recrt Int Pat Comment Right 1stDorInt Ulnar C8-T1 Nml Nml Nml Nml Nml 0 Nml Complete Right FlexCarRad Median C6-7 Nml Nml Nml Nml Nml 0 Nml Complete Right Biceps Musculocut C5-6 Nml Nml Nml Nml Nml 0 Nml Complete Right Triceps Radial C6-7-8 Nml Nml Nml Nml Nml 0 Nml Complete Right Deltoid Axillary C5-6 Nml Nml Nml Nml Nml 0 Nml Complete Left 1stDorInt Ulnar C8-T1 Nml Nml Nml Nml Nml 0 Nml Complete Left FlexCarRad Median C6-7 Nml Nml Nml Nml Nml 0 Nml Complete Left Biceps Musculocut C5-6 Nml Nml Nml Nml Nml 0 Nml Complete Left Triceps Radial C6-7-8 Nml Nml Nml Nml Nml 0 Nml Complete Left Deltoid Axillary C5-6 Nml Nml Nml Nml Nml 0 Nml Complete FINDINGS: All motor and sensory nerves tested showed normal latencies, amplitudes and conduction velocities. Concentric needle EMG was performed in selected muscles of the bilateral upper extremities. Study did not reveal signs of electric abnormalities as shown in the table above. IMPRESSION: 1. This is a normal study. 2. There is no electrodiagnostic evidence for median neuropathy, ulnar neuropathy, brachial plexopathy, or cervical radiculopathy. Thank you for your kind referral. Kathe Valle MD, MARIBEL Board Certified, [place] Board of Physical Medicine and Rehabilitation (ABPMR) Board Certified, [place] Board of Electrodiagnostic Medicine (ABEM) CODIN [phone] MTDD
== END 2024-03-21 12:53 | disposition home or self-care (01) ==
LOC: HO.NEURO 12:52
PROVIDERS: PCP Internal Medicine; Visit Provider Nurse Practitioner Family
DX: R20.0 Anesthesia of skin (principal); R20.2 Paresthesia of skin
CPT/HCPCS: 95886; 95911

== ENCOUNTER → 2024-03-21 12:55 | Outpatient (BNV) | payer MEDICARE, MEDICAID, SELFPAY | PROVIDERS: PCP Internal Medicine; Visit Provider Physical Medicine & Rehabilitation | DX: R20.0 Anesthesia of skin (principal); R20.2 Paresthesia of skin | CPT/HCPCS: 95886; 95911 ==

== ENCOUNTER 2024-05-29 12:27 | Outpatient (AMB) | payer MEDICARE, MEDICAID, SELFPAY ==
--- NOTE | 2024-05-29 12:33 | MHC.AMNUTRGE ---
VS Expanded 05/29/24 12:42 Height 6 ft 3 in Weight 274 lb 14.663 oz BMI 34.4 Intake Visit Reasons: Pre-DM Allergies apple Allergy (Unknown, Verified 03/18/24 03:39) Anaphylaxis shellfish derived Allergy (Unknown, Verified 03/18/24 03:39) Anaphylaxis dexamethasone Adverse Reaction (Intermediate, Verified 03/18/24 03:39) nausea, dizziness, migraine Nutrition Presentation Details: Pt presents for MNT f/u for obesity Pt is taking phentermine Pt reports feeling more comfortable working on reducing on portion sizes of foods. Practicing mindful eating, choosing fruits when having cravings for sweets. Trying different recipes high in fiber physical activity: looking to do low impact exercises - swimming water: 60 oz/d + tea, milk, soup, jello BS Monitoring Most Recent Diabetes Results: Creatinine 0.76 mg/dL (0.5-1.4) 02/07/24 Blood Urea Nitrogen 10 mg/dL (9-16) 02/07/24 Sodium 140 mmol/L (135-145) 02/07/24 Potassium 3.8 mmol/L (3.3-5.1) 02/07/24 Chloride 108 mmol/L (96-108) 02/07/24 Carbon Dioxide 26 mmol/L (22-29) 02/07/24 Calcium 9.3 mg/dL (8.4-10.2) 02/07/24 AST 21 U/L (5-31) 02/07/24 ALT 24 U/L (0-31) 02/07/24 Total Protein 7.4 g/dL (6.5-8.0) 02/07/24 Albumin 4.5 g/dL (3.5-5.0) 02/07/24 VFW-Phxuxpy-Ge.Jeor Equation Height: 6 ft 3 in Weight: 275 lb Resting Metabolic Rate: 2113.40 Calculated Activity Level: Sedentary Calories Needed to Maintain Weight: 2536.08 [facility] Medical History DDD (degenerative disc disease), cervical Chronic low back pain Erythema intertrigo Pain in both feet PCOS (polycystic ovarian syndrome) Psoriasis Cervicalgia Bulging of thoracic intervertebral disc Obstructive sleep apnea Anxiety and depression Fibromyalgia Subclinical hyperthyroidism Obesity (BMI 30-39.9) Multinodular goiter Polyarthralgia Restless legs syndrome Vitamin D deficiency Shellfish allergy Surgical History H/O gastric sleeve Family History Father Bipolar disorder Hypercholesterolemia HTN (hypertension) Depression Obesity Substance use disorder Mental health disorder Congestive heart failure Sleep apnea Atrial fibrillation Mother HTN (hypertension) Anxiety Sister Obesity Depression Anxiety Son Autism Social History Housing: House Alcohol intake: current Alcohol intake frequency: holidays/special occasions only Patient Tobacco Use Status: Never used Tobacco e-Cigarette/Vaping Use: Never Used Substance Use Type: Marijuana service: No Current occupational status: other 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 Had sleeve gastrectomy in 2014. Code(s): E66.9 - Obesity, unspecified Category: Medical Plan Est kcal needs as per msj : 2500 est prot needs asp er 1g /kg bw: 124 g/d est fluid needs asper 25 ml/kg bw: 3700 rec Na intake < 2000 mg d/ Pt reports having lactose intolerance and has shellfish allergy Goal weight : 260 lbs Topics reviewed and reinforced : Balancing meals: healthy plate method, fruits, veg, lactose free dairy, omega 3 sources of foods Strategies to reduce calories: lower calorie options, physical activity, stretches Continue Mindful eating, relaxation keeping hydrated Coding Level of Care Code Nutr Indiv Subseq (89751) Diagnoses Obesity (BMI 30-39.9) E66.9 Time Spent (min) 20
[2024-05-29 12:42] VITALS: BMI 34.4
[2024-05-29 13:09] VITALS: BMI 34.4
--- OUTSIDE RECORDS SUMMARY | 2024-05-29 15:16 | XMS_ITS | Clinical Summary ---
Author Organization [address] [facility] Address [address] [place] [address] Phone Care Team Providers Care Coagulant Dipper Name Role Phone Asya Fagan MD Primary Care Provider [phone] Allergies Active Allergy Reactions Criticality Noted Date Comments Aloe 02/27/2024 Fruit Of The [[place] Aloe]Hives/Urticaria Apple 04/23/2024 Shellfish Derived 04/23/2024 Medications acetaminophen (TYLENOL 8 HOUR) 650 mg 8 hr tablet TAKE ONE TABLET EVERY 8 HOURS NEEDED MILD PAIN, DO NOT BREAK, CRUSH, DISSOLVE OR CHEW 4 Active alpha lipoic acid 600 mg capsule Take 1 capsule by mouth 1 (one) time each day. 4 Active betamethasone, augmented, (DIPROLENE-AF) 0.05 % cream Apply topically 2 (two) times a day. Active calcipotriene (DOVONEX) 0.005 % cream Apply topically 2 (two) times a day. Active clotrimazole-be tamethasone (LOTRISONE) 1-0.05 % cream Apply topically 2 (two) times a day. Active magnesium oxide (MAG-OX) 400 mg magnesium tablet Take 1 tablet (400 mg total) by mouth 1 (one) time each day. Active Encounters Date Type Department Care Team Description 05/27/2024 8:30 AM EST Office Visit Orthopedic Surgery [facility] [address] [phone] Graham Stratton, DPM Acquired hallux valgus of right foot (Primary Dx); Bilateral foot pain; Acquired hammer toe of right foot; Metatarsalgia of both feet; Verruca plantaris 04/23/2024 9:00 AM EST Consult Orthopedic Surgery [facility] [address] [phone] Graham Stratton DPM Acquired hallux valgus of right foot (Primary Dx); Acquired hammer toe of right foot; Metatarsalgia of both feet; Verruca plantaris from Last 3 Months Immunizations Name Administration Dates Next Due HPV, Unspecified 10/22/2008 Family History Medical History Relation Name Comments Other cancer Maternal Grandfather Diabetes Maternal Grandmother Relation Name Status Comments Maternal Grandfather Maternal Grandmother Social History Tobacco Use Types Packs/Day Years Used Date Smoking Tobacco: Never Alcohol Use Standard Drinks/Week Comments No 0 (1 standard drink = 0.6 oz pur e alcohol) Comments Unknown Sex and Gender Information Value Date Recorded Sex Assigned at Not on file Legal Sex Female 1:56 PM EST Gender Identity Not on file Sexual Orientation Not on file Obstetrics History Last Filed Vital Signs Vital Sign Reading Time Taken Comments Blood Pressure - - Pulse - - Temperature - - Respiratory Rate - - Oxygen Saturation - - Inhaled Oxygen Concentration - - Weight 127 kg (280 lb) 05/27/2024 8:33 AM EST Height 188.7 cm (6' 2.29 ) 05/27/2024 8:33 AM ES T Body Mass Index 35.67 05/27/2024 8:33 AM EST Plan of Treatment Upcoming Encounters Date Type Department Care Team (Late st Contact Info) Description 07/15/2024 8:30 AM EDT Office Visit Orthopedic Surgery [place] [address] [phone] Graham Stratton DPM [address] [address] Health Maintenance Due Date Last Done Comments HPV Vaccines (2 - 3-dose series) 11/19/2008 10/22/2008 Hepatitis B Vaccines (1 of 3 - 19+ 3-dose series) 2009 Cervical Cancer Screening: Pap Smear 11/02/2011 COVID-19 Vaccine (3 - Moderna risk series) 07/31/2020 07/03/2020, 06/05/2020 Influenza Vaccine (#1) 2023 2, 05/07/2021, 12/25/2018, Additional history exists Cholesterol Screening (Lipid Panel) 04/29/2024 Depression Screening 04/29/2024 Medicare Annual Wellness Visit 04/29/2024 Social Influencers of Health Screening 04/29/2024 DTaP,Tdap,and Td Vaccines (5 - Td or Tdap) 09/02/2028 09/02/2018, 06/02/2017, 06/22/2016, Additional history exists HIV Screening Completed 10/22/2008 Hepatitis C Screening Completed 10/22/2008 HIB Vaccines Aged Out No longer eligi ble based on patient's age to complete this topic Hepatitis A Vaccines Aged Out No long er eligible based on patient's age to complete this topic IPV Vaccines Aged Out No longer eligi ble based on patient's age to complete this topic MMR Vaccines Aged Out No longer eligi ble based on patient's age to complete this topic Meningococcal ACWY Vaccine Aged Out N o longer eligible based on patient's age to complete this topic Meningococcal B Vacine Aged Out No lo nger eligible based on patient's age to complete this topic Pneumococcal Vaccine: Pediatrics (0 to 5 Years) and At-Risk Patients (6 to 64 Years) Aged Out No longer eligible based on patient's age to complete this topic RSV Immunization Patients Under 20 months Aged Out No longer eligible based on patient's age to complete this topic Varicella Vaccines Aged Out No longer eligible based on patient's age to complete this topic Procedures Procedure Name Priority Date/Time Associated Diagnosis Comments XR FOOT 3+ VIEWS BILAT Routine 05/27/2024 8:38 AM EST Bilateral foot pain HEPATITIS C SCREENING Routine 10/22/2008 HIV SCREENING Routine 10/22/2008 from Last 3 Months or Most Recently Relevant to Health Maintenance Results * XR Foot 3+ Views bilat (05/27/2024 8:38 AM EST) Anatomical Region Laterality Modality Lower Extremities, Foot Bilateral Computed Radiography Narrative 05/27/2024 6:21 PM EST Right foot 3 views Bunion deformity driven by hallux adductovalgus with hallux interphalangeus relatively normal intermetatarsal angulation Severe hammertoe contractures 2 through 5 right Left foot weightbearing 3 views Mild bunion deformity Moderate to severe hammertoe contractures 2 through 5 Graham Stratton DPM IMG XR PROCEDURES Final R esult * HIV Screening (10/22/2008) HIV Screening abstracted Historical Provider HEALTH MAINTENANCE Final Result * Hepatitis C Screening (10/22/2008) Hepatitis C Screening abstracted Historical Provider HEALTH MAINTENANCE Final Result from Last 3 Months or Most Recently Relevant to Health Maintenance Insurance MEDICARE MEDICARE Member Subscriber Plan / Payer (Ef fective 2023-Present) Name:Phil Costa, Ashia Member ID:[id number] Relation to Subscriber:Self Name:Phil Costa Ashia Subscriber ID:[id number] Payer ID:Not on file Group ID:Not on file Type:Medicare Address: [place] [id number] MEDICAID - [place] Care Teams Coagulant Dipper Relationship Specialty Start Date End Date Asya Fagan MD [address] [place] [address] PCP - General Pediatrics 02/27/24
--- OUTSIDE RECORDS SUMMARY | 2024-05-29 15:16 | XMS_ITS | Clinical Summary ---
Author Organization [employer] Address [address] [place] [address] Care Team Providers Care Ct Technologist Name Role Phone Unavailable Primary Care Provider Unavailabl e Allergies Active Allergy Reactions Criticality Noted Date Comments Apple Juice Hives 12/13/2023 Citrullus Vulgaris 12/13/2023 Other Reaction(s): hives Iodine 12/06/2023 Other 12/13/2023 Other Reaction(s): cantaloupe-hives, pistachios-hives Rice 12/13/2023 Other Reaction(s): hives Shellfish Allergy 12/06/2023 Other Reaction(s): anaphylaxis Wound Dressings 12/13/2023 Other Reaction(s): skin irritation Medications Otezla 30 MG tablet 4 Active MAGnesium-Oxide 400 (240 Mg) MG tablet TAKE 1 TABLET BY MOUTH ONCE DAILY AT BEDTIME. MAY HOLD FOR LOOSE STOOLS 4 Active riboflavin (Vitamin B-2) 400 MG tablet Take 1 tablet by mouth Once per day. 4 Active cholecalciferol VITAMIN D (Vitamin D-3) 50 MCG (2000 UT) capsule Take by mouth Once per day. 4 Active calcipotriene (Dovonex) 0.005 % ointment APPLY OINTMENT TOPICALLY TO AFFECTED AREAS ON ARMS AND LEGS TWICE DAILY 4 Active betamethasone, augmented, (Diprolene) 0.05 % ointment APPLY TO FEET, ARMS, AND LEGS TWICE DAILY FOR 2 WEEKS, BREAK FOR 1 WEEK, THEN REPEAT NEEDED 4 Active Alpha-Lipoic Acid 600 MG capsule Take 1 capsule by mouth Once per day. 4 Active phytonadione (Vitamin K) 5 MG tablet Take by mouth. Activ e ibuprofen 600 MG tablet Take 1 tablet (600 mg) by mouth every 6 (six) hours if needed for mild pain for up to 20 doses. 20 tablet 4 Active Active Problems Problem Noted Date Diagnosed Date Severe dental caries 02/06/2024 Non-restorable tooth 02/06/2024 Anxiety and depression 12/13/2023 Hx of insomnia 12/13/2023 Infection due to fungus 12/13/2023 Overview (12/13/2023): foot fungus Migraine headache 12/13/2023 Overview (12/13/2023): chronic and cluster stress related migraines Obesity 12/13/2023 Severe obesity (BMI 35.0-39.9) with comorbidity 12/13/2023 Encounters Date Type Department Care Team Description 03/22/2024 9:00 AM EST Office Visit [facility] ADULT [facility] [address] [place] [address] Jared Frankel DDS 03/15/2024 Travel from Last 3 Months Social History Tobacco Use Types Packs/Day Years Used Date Smoking Tobacco: Never Smokeless Tobacco: Never Tobacco Cessation:Counseling Given: Not Answered Comments Unknown Sex and Gender Information Value Date Recorded Sex Assigned at Female 01/31/2022 10:14 AM EDT Legal Sex Female 10:14 AM EDT Gender Identity Female 12/06/2023 8:27 AM EDT Sexual Orientation Choose not to disclose 2023 8:27 AM EDT Last Filed Vital Signs Vital Sign Reading Time Taken Comments Blood Pressure 122/78 02/06/2024 2:30 PM EST Pulse - - Temperature - - Respiratory Rate - - Oxygen Saturation - - Inhaled Oxygen Concentration - - Weight - - Height - - Body Mass Index - - Plan of Treatment Health Maintenance Due Date Last Done Comments Depression Screening 1990 HIV Screening 1990 Lipid Panel 1990 SDOH Screening 1990 Alcohol/Substance Use Screening 2002 Family Planning (PISQ) 2005 Hepatitis C Screening 2008 HPV Vaccines (2 - 3-dose series) 11/19/2008 10/22/2008 Hepatitis B Vaccines (1 of 3 - 19+ 3-dose series) 2009 Pap Smear 11/02/2011 Dental Oral Exam 04/06/2019 10/03/2018, 05/2018, 06/29/2015, Additional history exists Cervical Cancer Screening 2020 HPV/Cotest 2020 COVID-19 Vaccine ( season) 2023 07/03/2020, 06/05/2020 Influenza Vaccine (#1) 2023 , 05/07/2021, 12/25/2018, Additional history exists Dental Prophylaxis 08/06/2024 02/06/2024, 0 10/03/2018, 04/04/2018, Additional history exists Tobacco Screening 02/05/2025 02/06/2024 Dental X-Ray: Bitewings 02/06/2025 02/06/20 24, 12/06/2023, 04/04/2018, Additional history exists Dental X-Ray: Full Mouth 12/13/2026 024, 12/06/2023, 05/11/2018, Additional history exists DTaP/Tdap/Td Vaccines (5 - Td or Tdap) 09/02/2028 09/02/2018, 06/02/2017, 06/22/2016, Additional history exists Zoster Vaccines (1 of 2) 2040 RSV Patients and Patients Aged 60 years or older (1 - 1-dose 75+ series) 2065 HIB Vaccines Aged Out No longer eligi ble based on patient's age to complete this topic Hepatitis A Vaccines Aged Out No long er eligible based on patient's age to complete this topic IPV Vaccines Aged Out No longer eligi ble based on patient's age to complete this topic Meningococcal Vaccine Aged Out No jonathan josé luis eligible based on patient's age to complete this topic Pneumococcal Vaccine: Pediatrics (0 to 5 Years) and At-Risk Patients (6 to 49) Years) Aged Out No longer eligible based on patient's age to complete this topic RSV under 20 months Aged Out No longe r eligible based on patient's age to complete this topic Rotavirus Vaccines Aged Out No longer eligible based on patient's age to complete this topic Procedures Procedure Name Priority Date/Time Associated Diagnosis Comments CASE PRESENTATION, DETAILED AND EXTENSIVE TREATMENT PLANNING Routine 03/22/2024 9:00 AM EST LIMITED ORAL EVALUATION - PROBLEM FOCUSED Routine 03/22/2024 9:00 AM EST PROPHYLAXIS - ADULT Routine 02/06/2024 8 :00 AM EST Dental calculus Dental plaque BITEWINGS - 4 RADIOGRAPHIC IMAGES Routine 02/06/2024 8:00 AM EST PANORAMIC RADIOGRAPHIC IMAGE Routine 12/13/2023 9:00 AM EDT Tooth impaction Dental caries Symptomatic irreversible pulpitis PERIODIC ORAL EVALUATION - ESTABLISHED PATIENT Routine 10/03/2018 12:00 AM EDT from Last 3 Months or Most Recently Relevant to Health Maintenance Insurance
--- OUTSIDE RECORDS SUMMARY | 2024-05-29 15:16 | XMS_ITS | Encounter Summary ---
Author Organization [employer] [facility] Address [address] [place] [address] Care Team Providers Care Record Press Supervisor Name Role Phone Unavailable Primary Care Provider Unavailabl e Encounter Details Date Type Department Care Team (Latest Contact Info) Description 04/04/2018 Abstract [facility] CONVERSIONS Dental, Provider, DDS Social History Tobacco Use Types Packs/Day Years Used Date Smoking Tobacco: Never Assessed Comments Unknown Sex and Gender Information Value Date Recorded Sex Assigned at Female 01/31/2022 10:14 AM EDT Legal Sex Female 10:14 AM EDT Gender Identity Female 12/06/2023 8:27 AM EDT Sexual Orientation Choose not to disclose 2023 8:27 AM EDT documented as of this encounter Plan of Treatment Not on file documented as of this encounter Visit Diagnoses Not on filedocumented in this encounter
--- OUTSIDE RECORDS SUMMARY | 2024-05-29 15:16 | XMS_ITS | Encounter Summary ---
Author Organization [employer] Address [address] [place] [address] Care Team Providers Care Tube Trailer Filler Name Role Phone Unavailable Primary Care Provider Unavailabl e Encounter Details Date Type Department Care Team (Late st Contact Info) Description 02/01/[address] [facility] ADULT D[facility] [address] [place] [address] Lilli Carlos, DDS [address] [place] [address] Social History Tobacco Use Types Packs/Day Years Used Date Smoking Tobacco: Never Smokeless Tobacco: Never Comments Unknown Sex and Gender Information Value [...]
--- OUTSIDE RECORDS SUMMARY | 2024-05-29 15:16 | XMS_ITS | Encounter Summary ---
Author Organization [employer] [facility] Address [address] [place] [address] Care Team Providers Care Riding Silks Custodian Name Role Phone Unavailable Primary Care Provider Unavailabl e Encounter Details Date Type Department Care Team (Latest Contact Info) Description 10/03/2018 Abstract [facility] CONVERSIONS Dental, Provider, DDS Social History Tobacco [...]
--- OUTSIDE RECORDS SUMMARY | 2024-05-29 15:16 | XMS_ITS | Encounter Summary ---
Author Organization [facility] Address [address] [place] [address] Care Team Providers Care Pattern And Chain Maker Name Role Phone Asya Fagan MD Primary Care Provider [phone] Reason for Visit * Reason Comments Follow-up Right foot pain Encounter Details Date Type Department Care Team ([facility] st Contact Info) Description 05/27/2024 8:30 AM EST Office Visit [facility] [place] [address] [id number] Graham Stratton DPM [address] [address] Acquired hallux valgus of right foot (Primary Dx); Bilateral foot pain; Acquired hammer toe of right foot; Metatarsalgia of both feet; Verruca plantaris Social History Tobacco Use Types Packs/Day Years Used Date Smoking Tobacco: Never Assessed Comments Unknown Sex and Gender Information Value Date Recorded Sex Assigned at Not on file Legal Sex Female 1:56 PM EST Gender Identity Not on file Sexual Orientation Not on file documented as of this encounter Last Filed Vital Signs Vital Sign Reading Time Taken Comments Blood Pressure - - Pulse - - Temperature - - Respiratory Rate - - Oxygen Saturation - - Inhaled Oxygen Concentration - - Weight 127 kg (280 lb) 05/27/2024 8:33 AM EST Height 188.7 cm (6' 2.29 ) 05/27/2024 8:33 AM ES T Body Mass Index 35.67 05/27/2024 8:33 AM EST documented in this encounter Progress Notes * Graham Stratton DPM - 05/27/2024 8:30 AM EST S Patient presents with complaint pain in her feet 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 Pt in NAD. CARDIOLOGY: pt denies chest pain, palpitations LUNGS: pt denies shortness of breath MUSCULOSKELETAL: See HPI, otherwise no joint pain or swelling, back pain, or muscle pain. SKIN: see HPI, otherwise no lesions, rash or itching NEURO: No persistent headache, weakness or numbness The remainder of the review of systems is noncontributory PAST MEDICAL HISTORY: There is no problem list on file for this patient. SOCIAL HISTORY: Social History Tobacco Use Smoking status: Never Smokeless tobacco: Not on file Substance Use Topics Alcohol use: No ACTIVE MEDICATIONS: Outpatient Medications Marked as Taking for the 05/27/24 encounter (Office Visit) with Graham Hernandez DPM Medication Sig Dispense Refill acetaminophen (TYLENOL 8 HOUR) 650 mg 8 hr tablet TAKE ONE TABLET EVERY 8 HOURS NEEDED MILD PAIN, DO NOT BREAK, CRUSH, DISSOLVE OR CHEW alpha lipoic acid 600 mg capsule Take 1 capsule by mouth 1 (one) time each day. betamethasone, augmented, (DIPROLENE-AF) 0.05 % cream Apply topically 2 (two) times a day. calcipotriene (DOVONEX) 0.005 % cream Apply topically 2 (two) times a day. clotrimazole-betamethasone (LOTRISONE) 1-0.05 % cream Apply topically 2 (two) times a day. magnesium oxide (MAG-OX) 400 mg magnesium tablet Take 1 tablet (400 mg total) by mouth 1 (one) timeeach day. ALLERGIES: Allergies Allergen Reactions Aloe Fruit Of The [[place] Aloe]Hives/Urticaria Apple Shellfish Derived PHYSICAL EXAM: Visit Vitals Ht 1.887 m (74.29 ) Wt 127 kg (280 lb) BMI 35.67 kg/m?? Smoking Status Never BSA 2.51 m?? PODIATRIC EXAMINATION: GENERAL: Patient appears well nourished, with NAD. VASCULAR: Dorsalis pedis pulses are 2/4 bilaterally and Posterior tibial pulses are 2/4 bilaterally. Capillary filling time within normal limits the digits. No pallor on elevation or rubor on dependency. No varicosities. Denies rest pain or claudication pain. NEUROLOGICAL: Sharp/dull sensation intact, protective sensation intact 10/10 with 5.07 semmes dora bilaterally, vibratory sensation with tuning fork intact to the tibial tuberosity. ORTHOPEDIC: Good muscle strength 5/5 of all flexors and extensors. Dorsi flexion of ankle ,10 degrees, plantar flexion WNL. No muscle atrophy. DERMATOLOGICAL: Hyperkeratotic tissue subfirst and third metatarsal bilaterally abnormal skin formation subfourth metatarsal right foot with deep central core pain with lateral compression pinpoint bleeding on debridement BIOMECHANICS: Ankle ROM WNL, STJ ROM pes cavus foot type increased inversion eversion, MTJ ROM wnl,1st MPJ ROM moderate bunion deformity bilaterally severe hammertoe contractures of the second thirdand fourth bilaterally metatarsalgia both feet with fat pad atrophy. IMAGING: IMPRESSION: 1. Acquired hallux valgus of right foot 2. Bilateral foot pain 3. Acquired hammer toe of right foot 4. Metatarsalgia of both feet 5. Verruca plantaris PLAN: Pt was seen and examined, history reviewed. Major surgical reconstruction options of the right foot were discussed and reviewed specific to theright foot Regrets reviewed discussed that she has a mild intermetatarsal angulation but is significant halluxabductovalgus and hallux interphalangeus discussed Elida bunionectomy Discussed significant hammertoe contracture deformities would recommend hammertoe correction of thesecond third fourth and fifth Discussed MPJ contracture release of the second and third with partial met head resection of the fifth and offloading osteotomy with met head resection of the fourth Surgical recovery was discussed would be 3 months the right foot after lengthy discussion patient 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 6-year-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 works 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-time and she can take that kind of time off of work Radiographs were printed to be reviewed with patient and drawn on that she could understand the osteotomies the angulations which were all reviewed with her in detail all of her questions were asked as a pertains to major reconstructive surgery of her right foot treatment options verrucous plantaris were discussed and reviewed including definitive diagnosis with biopsy Discussed with patient concerns for biopsy as it may lead to scar tissue formation but would have surgical cure and definitive diagnosis patient declined Would recommend destructive procedures patient is willing to proceed Follow-up in 1 month [id number]: Destruction of Plantar Verrucae: Verbal informed consent was obtained from the patient. Debrided wart(s) with a scalpel. Aggressive debridement dermal curette and 15 scalpel blade followed by chemical destruction and cauterization with silver nitrate sticks. Graham Stratton DPM documented in this encounter Plan of Treatment Upcoming Encounters Date Type Department Care Team (Late st Contact Info) Description 07/15/2024 8:30 AM EDT Office Visit [facility] Surgery - [place] [address] [phone] Graham Stratton DPM [address] [address] documented as of this encounter Results * XR Foot 3+ Views bilat [...] to severe hammertoe contractures 2 through 5 us Graham Stratton DPM IMG XR PROCEDURES Final R esult documented in this encounter Visit Diagnoses Diagnosis Acquired hallux valgus of right foot- Primary Bilateral foot pain Acquired hammer toe of right foot Metatarsalgia of both feet Verruca plantaris Plantar wart documented in this encounter Care Teams Pattern And Chain Maker Relationship Specialty Start Date End Date Asya Fagan MD [address] [place] [phone] PCP - General Pediatrics 02/27/24 documented as of this encounter
--- OUTSIDE RECORDS SUMMARY | 2024-05-29 15:16 | XMS_ITS | Encounter Summary ---
Author Organization [employer] Address [address] [place] [address] Care Team Providers Care Senior Clinical Research Associate Name Role Phone Unavailable Primary Care Provider Unavailabl e Encounter Details Date Type Department Care Team (Late st Contact Info) Description 12/13/2023 Orders Only [facility] ADULT DENTAL [address] [place] [address] Lilli Carlos, DDS [address] [place] [address] Social History Tobacco Use Types Packs/Day Years [...]
== END 2024-05-29 12:59 | disposition home or self-care (01) ==
PROVIDERS: PCP Internal Medicine; Visit Provider Dietitian, Registered
DX: E66.9 Obesity, unspecified (principal)